=== PATIENT | male | born 1970 | race Two or more races ===

== ENCOUNTER 2019-07-20 16:25 | Emergency (ER) | payer SELFPAY ==
[~2019-07-20] VITALS: Ht 170.2 cm; Wt 81.6 kg
[2019-07-20 16:40] VITALS: BP 117/77
[2019-07-20] MEDS ORDERED: cefTRIAXone SOD 1,000 MG VL IM ONE (18:00)
== END 2019-07-20 18:17 | disposition home or self-care (01) ==
LOC: ER 16:25
DX: J20.9 Acute bronchitis, unspecified (principal); J03.90 Acute tonsillitis, unspecified; J45.909 Unspecified asthma, uncomplicated; F15.10 Other stimulant abuse, uncomplicated; F17.210 Nicotine dependence, cigarettes, uncomplicated
CPT/HCPCS: 71046; 96372; 99283; J0696

== ENCOUNTER 2020-05-08 22:26 | Inpatient (IN) | payer MEDICAID, OTHER ==
[~2020-05-08] VITALS: Ht 170.2 cm; Wt 78.8 kg
[2020-05-08] MEDS ORDERED: SODIUM CHLORIDE 0.9% 1,000 ML IVB ONE (23:30)
[2020-05-08] MEDS ORDERED: ATROPINE SULF 1 MG/10ml SYR IV ONE (23:45)
[2020-05-08 23:57] LABS: Basophils # (auto) 0 10 ^3/uL (0-0.2); Basophils % (auto) 0.1 % (0.0-2.0); Eosinophils # (auto) 0 10 ^3/uL (0-0.8); Eosinophils % (auto) 0.1 % (0.0-7.0); Hematocrit 39.3 % (41.0-53.0); Hemoglobin 13.4 g/dL (13.5-17.5); Lymphocytes # (auto) 2.3 10 ^3/uL (0.4-5.4); Lymphocytes % (auto) 27.7 % (10.0-50.0); Mean Corpuscular Hemoglobin 30.8 pg (28.0-32.0); Mean Corpuscular Hgb Conc. 34.2 g/dL (32.0-36.0); Monocytes # (auto) 0.6 10 ^3/uL (0-1.3); Monocytes % (auto) 7.4 % (0.0-12.0); Neutrophils # (auto) 5.4 10 ^3/uL (1.6-8.6); Neutrophils % (auto) 64.7 % (37.0-80.0); Platelet Count (auto) 190 10^3/uL (140-450); Red Blood Cells 4.37 10^6/uL (4.5-5.90); Red Cell Distribution Width 12.4 % (11.8-14.3); White Blood Cell 8.3 10^3/uL (4.4-10.8)
[2020-05-09 00:13] LABS: Alanine Aminotransferase 23 U/L (16-61); Anion Gap 9 (5-15); Aspartate Aminotransferase 18 U/L (15-37); BUN/Creatinine Ratio 16.3; Blood Urea Nitrogen 16 mg/dL (7-18); Calcium 7.7 mg/dL (8.5-10.1); Carbon Dioxide 26 mmol/L (21-32); Chloride 100 mmol/L (98-107); GFR African American 104 mL/min; GFR Non-African American 86 mL/min; Glucose 118 mg/dL (74-106); Magnesium 1.9 mg/dL (1.6-2.6); Potassium 3.2 mmol/L (3.5-5.1); Sodium 135 mmol/L (136-145)
[2020-05-09 00:18] LABS: Alkaline Phosphatase 104 U/L (45-117); Bilirubin, Total 0.5 mg/dL (0.2-1.0); Total Protein 6.5 g/dL (6.4-8.2)
[2020-05-09 00:31] LABS: Urine Bacteria FEW /hpf (None Seen); Urine Blood Negative /uL (Negative); Urine Specific Gravity 1.002 (1.001-1.035); Urine WBC 1 /hpf (0 - 3)
[2020-05-09 00:43] LABS: Amphetamine Screen, Urine POSITIVE (NEGATIVE); Barbiturate Scree,Urine NEGATIVE (NEGATIVE); Benzodiazephine Screen, Urine NEGATIVE (NEGATIVE); Cannabinoid Screen, Urine NEGATIVE (NEGATIVE); Cocaine Screen, Urine NEGATIVE (NEGATIVE); Phencyclidine Screen, Urine NEGATIVE (NEGATIVE)
[2020-05-09] MEDS ORDERED: MORPHINE SULF INJ 2 MG/ML SYRINGE 1ML IV PRN (00:45)
[2020-05-09] MEDS ORDERED: ONDANSETRON HCL 4 MG/2 ML VIAL IV PRN (00:45)
[2020-05-09] MEDS ORDERED: TEMAZEPAM 15 MG CAP PO PRN (00:45)
[2020-05-09] MEDS ORDERED: ACETAMINOPHEN 325 MG TAB PO PRN (00:45)
[2020-05-09] MEDS ORDERED: NITROGLYCERIN 0.4 MG SL TAB SL PRN (00:45)
[2020-05-09 00:50] LABS: Opiate Scree,Urine NEGATIVE (NEGATIVE)
[2020-05-09 01:49] LABS: CRP High Sensitivity 6.29 mg/dL (< 0.3)
[2020-05-09] MEDS: BUDESONIDE (INHALATION) 180 MCG IH IN SCH ×2 (07:34→20:12)
[2020-05-09] MEDS: ALBUTEROL SULF HFA 90MCG INH 200DOSE IN PRN ×2 (07:34→20:12)
[2020-05-09] MEDS: DexAMETHasone SOD PHOS 10MG/1ML VIAL INJ IV SCH (08:52)
[2020-05-09] MEDS: ASCORBIC ACID 1,000 MG TAB PO SCH (08:53)
[2020-05-09] MEDS: ZINC SULFATE 220mg CAP or TAB PO SCH (08:53)
[2020-05-09] MEDS: CHOLECALCIFEROL (VITD3) 2,000 UNIT CAP PO SCH (08:53)
[2020-05-09] MEDS: FAMOTIDINE 20 MG TAB PO SCH ×2 (08:53→21:45)
[2020-05-09] MEDS: ENOXAPARIN SOD 40 MG/0.4 ML SYRINGE SC SCH ×2 (08:53→21:46)
[2020-05-09] MEDS: DOXYCYCLINE 100MG/250ML 250 ML IV SCH ×2 (08:53→22:41)
--- NOTE | 2020-05-09 09:00 | NUR ---
Telemetry admit from ER MICKEY YUAN admitted to Telemetry unit after SBAR received. Patient oriented to Frannie Ortiz, primary RN, unit, room, bed, and unit policies regarding patient care and visiting hours. Patient now on continuous telemetry monitoring, tele box #[id number] and telemetry reading on arrival to unit is SR @ 66 BPM. Patient placed 5 L/NC on bedside oxygen. Bed set to lowest position/locked, bedside rails up x2, call light within reach. Instructed patient to call for assistance. Patient verbalized understanding. Will continue to monitor q1hr and prn.
[2020-05-09] MEDS ORDERED: REMDESIVIR PER PHARMACY 0 ML IV SCH (18:45)
[2020-05-09] MEDS ORDERED: cefTRIAXone 1GM/50ML D5W 50 ML IV ONE (18:45)
[2020-05-09] MEDS ORDERED: FUROSEMIDE 20 MG/2 ML VIAL IV ONE (18:45)
[2020-05-09] MEDS ORDERED: POTASSIUM CHL 20 Meq TABLET PO ONE (18:45)
--- NOTE | 2020-05-09 19:50 | NUR ---
RECEIVED PATIENT FROM DAY SHIFT RN. PATIENT RESTING IN BED WITH EYES CLOSED. NO S/S OF DISTRESS NOTED. DENIED PAIN AT THIS TIME. PUT PATIENT BACK TO 5L/NC AND INSTRUCTED PATIENT ON THE IMPORTANCE OF THE OXYGEN INTAKE. PATIENT VERBALIZED UNDERSTANDING. POC INSTRUCTED AND ENCOURAGED PATIENT TO CALL FOR CUPOLA TAPPER HELPER IF NEEDED. BED IN LOWEST LOCKED POSITION WITH SIDE RAILS UP X 2. CALL MARTIN WITHIN REACH. CONTINUE TO MONITOR FOR CHANGES Q1H AND PRN.
[2020-05-09 20:23] LABS: Albumin 2.9 g/dL (3.4-5.0); Calcium 8.7 mg/dL (8.5-10.1); Potassium 4.3 mmol/L (3.5-5.1)
[2020-05-09 20:27] LABS: BUN/Creatinine Ratio 22.8; Bilirubin, Total 0.4 mg/dL (0.2-1.0); Total Protein 6.8 g/dL (6.4-8.2)
--- NOTE | 2020-05-09 20:47 | NUR ---
PATIENT'S DAUGHTER CALLED, PASSWORD CONFIRMED. UPDATED ON CURRENT SITUATION. DAUGHTER VERBALIZED UNDERSTANDING. CONTINUE TO MONITOR
[2020-05-09] MEDS ORDERED: REMDESIVIR 200 MG in NS 210ml LOADING DOSE ADULT IV ONE (22:00)
[2020-05-09 23:18] VITALS: BP 125/72
--- NOTE | 2020-05-10 00:46 | NUR ---
PATIENT'S REMDESIVIR STATED AT THIS TIME ORDERED. PATIENT'S BP 130/77. CONTINUE TO MONITOR.
--- NOTE | 2020-05-10 01:00 | NUR ---
REASSESSED BP 114/65, HR 66. SLOW DOWN THE RATE OF REMDESIVIR. WILL CONTINUE TO MONITOR.
--- NOTE | 2020-05-10 01:15 | NUR ---
REASSESSED BP 118/72, HR 63. INCREASED RATE TO 160ML/HR AT THIS TIME. CONTINUE TO MONITOR.
--- NOTE | 2020-05-10 02:25 | NUR ---
REMDESIVIR COMPLETED, REASSESSED BP 146/83, HR 65. CONTINUE TO MONITOR.
[2020-05-10 06:23] VITALS: BP 116/79
[2020-05-10] MEDS: BUDESONIDE (INHALATION) 180 MCG IH IN SCH ×2 (07:31→20:45)
--- NOTE | 2020-05-10 07:53 | NUR ---
OPENING NOTE ASSUMED CARE OF PT. ALERT AND ORIENTED. NO S/S OF SOB/DISTRESS NOTED. BED SET TO LOWEST POSITION/LOCKED. BEDSIDE RAILS UP X2. CALL LIGHT WITHIN REACH. INSTRUCTED PT TO CALL FOR ASSISTANCE. UPDATED ON POC. WILL CONTINUE TO MONITOR Q1HR AND PRN.
[2020-05-10 08:20] LABS: Basophils # (auto) 0 10 ^3/uL (0-0.2); Basophils % (auto) 0.1 % (0.0-2.0); Eosinophils # (auto) 0 10 ^3/uL (0-0.8); Eosinophils % (auto) 0.1 % (0.0-7.0); Hematocrit 43.7 % (41.0-53.0); Hemoglobin 14.7 g/dL (13.5-17.5); Lymphocytes # (auto) 1.2 10 ^3/uL (0.4-5.4); Lymphocytes % (auto) 14.3 % (10.0-50.0); Mean Corpuscular Hemoglobin 30.4 pg (28.0-32.0); Mean Corpuscular Hgb Conc. 33.6 g/dL (32.0-36.0); Mean Corpuscular Volume 90.5 fL (80.0-100.0); Monocytes # (auto) 0.6 10 ^3/uL (0-1.3); Monocytes % (auto) 7.6 % (0.0-12.0); Neutrophils # (auto) 6.5 10 ^3/uL (1.6-8.6); Neutrophils % (auto) 77.9 % (37.0-80.0); Platelet Count (auto) 197 10^3/uL (140-450); Red Blood Cells 4.83 10^6/uL (4.5-5.90); Red Cell Distribution Width 12.4 % (11.8-14.3); White Blood Cell 8.3 10^3/uL (4.4-10.8)
[2020-05-10 08:33] LABS: Potassium 4.3 mmol/L (3.5-5.1)
[2020-05-10 08:39] LABS: Albumin 2.8 g/dL (3.4-5.0); Bilirubin, Total 0.3 mg/dL (0.2-1.0); Calcium 8.5 mg/dL (8.5-10.1); Total Protein 6.9 g/dL (6.4-8.2)
[2020-05-10 09:00] VITALS: BP 118/79
[2020-05-10] MEDS: ALBUTEROL SULF HFA 90MCG INH 200DOSE IN PRN ×2 (09:26→20:46)
[2020-05-10] MEDS: cefTRIAXone 1GM/50ML D5W 50 ML IV SCH (10:02)
[2020-05-10] MEDS: DexAMETHasone SOD PHOS 10MG/1ML VIAL INJ IV SCH (10:02)
[2020-05-10] MEDS: DOXYCYCLINE 100MG/250ML 250 ML IV SCH (10:03)
[2020-05-10] MEDS: ZINC SULFATE 220mg CAP or TAB PO SCH (10:03)
[2020-05-10] MEDS: FUROSEMIDE 20 MG/2 ML VIAL IV SCH (10:03)
[2020-05-10] MEDS: ASCORBIC ACID 1,000 MG TAB PO SCH (10:04)
[2020-05-10] MEDS: CHOLECALCIFEROL (VITD3) 2,000 UNIT CAP PO SCH (10:04)
[2020-05-10] MEDS: FAMOTIDINE 20 MG TAB PO SCH ×2 (10:04→21:56)
[2020-05-10] MEDS: POTASSIUM CHL 20 Meq TABLET PO SCH (10:04)
[2020-05-10] MEDS: ENOXAPARIN SOD 40 MG/0.4 ML SYRINGE SC SCH ×2 (10:05→21:57)
[2020-05-10] MEDS ORDERED: LORATADINE 10 MG TAB PO ONE (12:00)
[2020-05-10 13:00] VITALS: BP 111/76
[2020-05-10] MEDS: REMDESIVIR 100 MG in SODIUM CHL 0.9% 250 ML IV SCH (16:00)
--- NOTE | 2020-05-10 16:01 | NUR ---
REMDESIVIR PRE-INFUSION VS 114/69 MMHG 85 BPM 95% SPO2 WILL CONTINUE TO MONITOR.
--- NOTE | 2020-05-10 16:16 | NUR ---
REMDESIVIR 15-MIN INFUSION VS 131/85 MMHG 82 BPM 93% SPO2 NO S/S OF SOB/DISTRESS NOTED. WILL CONTINUE TO MONITOR.
[2020-05-10 16:38] VITALS: BP 120/71
--- NOTE | 2020-05-10 17:09 | NUR ---
REMDESIVIR POST-INFUSION VS 115/82 MMHG 79 BPM 92% SPO2 NO S/S OF SOB/DISTRESS NOTED. WILL CONTINUE TO MONITOR.
--- NOTE | 2020-05-10 19:35 | NUR ---
RECEIVED PATIENT FROM DAY SHIFT RN. PATIENT RESTING IN BED. NO S/S OF DISTRESS AND SOB NOTED. DENIED PAIN AT THIS TIME. PATIENT IS ON RA WITH O2 SAT 95%. POC INSTRUCTED AND ENCOURAGED PATIENT TO CALL FOR FORM PRESS OPERATOR IF NEEDED. BED IN LOWEST LOCKED POSITION WITH SIDE RAILS UP X 2. CALL MARTIN WITHIN REACH. CONTINUE TO MONITOR FOR CHANGES Q1H AND PRN.
[2020-05-10] MEDS: DOXYCYCLINE 100 MG TAB/CAP PO SCH (21:56)
--- NOTE | 2020-05-10 22:00 | NUR ---
EDUCATED PATIENT ON SIDE EFFECTS OF MEDICATIONS AND THE IMPORTANCE TO COMPLETE THE WHOLE COURSE OF MEDICATIONS. PATIENT VERBALIZED UNDERSTANDING. CONTINUE TO MONITOR.
[2020-05-11 05:41] VITALS: BP 117/66
--- NOTE | 2020-05-11 07:30 | NUR ---
Opening Shift Note RECEIVED REPORT FROM NOC RN. Assumed care of patient, awake and alert. No S/S of distress/SOB or pain. BED IN LOWEST, LOCKED POSIITON WITH SIDERAILS UP x2 AND CALL LIGHT WITHIN REACH. Instructed on POC and to call for assist PRN, will continue to monitor for changes Q1hr and PRN.
[2020-05-11 08:12] LABS: Potassium 4.2 mmol/L (3.5-5.1)
[2020-05-11 08:13] LABS: Albumin 2.9 g/dL (3.4-5.0); BUN/Creatinine Ratio 31.4; Calcium 8.5 mg/dL (8.5-10.1)
[2020-05-11 08:16] LABS: Bilirubin, Total 0.2 mg/dL (0.2-1.0); Total Protein 6.8 g/dL (6.4-8.2)
[2020-05-11] MEDS: cefTRIAXone 1GM/50ML D5W 50 ML IV SCH (09:24)
[2020-05-11] MEDS: BUDESONIDE (INHALATION) 180 MCG IH IN SCH ×2 (10:30→18:07)
[2020-05-11] MEDS: FUROSEMIDE 20 MG/2 ML VIAL IV SCH (11:47)
[2020-05-11] MEDS: CHOLECALCIFEROL (VITD3) 2,000 UNIT CAP PO SCH (11:48)
[2020-05-11] MEDS: DexAMETHasone SOD PHOS 10MG/1ML VIAL INJ IV SCH (11:48)
[2020-05-11] MEDS: ZINC SULFATE 220mg CAP or TAB PO SCH (11:48)
[2020-05-11] MEDS: DOXYCYCLINE 100 MG TAB/CAP PO SCH (11:48)
[2020-05-11] MEDS: FAMOTIDINE 20 MG TAB PO SCH (11:48)
[2020-05-11] MEDS: POTASSIUM CHL 20 Meq TABLET PO SCH (11:48)
[2020-05-11] MEDS: ASCORBIC ACID 1,000 MG TAB PO SCH (11:48)
[2020-05-11] MEDS: ENOXAPARIN SOD 40 MG/0.4 ML SYRINGE SC SCH (11:49)
[2020-05-11] MEDS ORDERED: METH4PAK PO (11:54)
[2020-05-11] MEDS ORDERED: DOX100T PO (11:55)
[2020-05-11] MEDS ORDERED: CHOL20007 PO (11:55)
[2020-05-11] MEDS ORDERED: MULT-1018 PO (11:55)
[2020-05-11] MEDS ORDERED: AMOX500T86 PO (11:56)
[2020-05-11] MEDS ORDERED: PANT40TA2 PO (11:57)
[2020-05-11] MEDS ORDERED: ASPI-231 PO (11:58)
[2020-05-11] MEDS: ALBUTEROL SULF HFA 90MCG INH 200DOSE IN PRN ×2 (12:11→19:26)
[2020-05-11] MEDS: REMDESIVIR 100 MG in SODIUM CHL 0.9% 250 ML IV SCH (15:26)
--- NOTE | 2020-05-11 18:46 | NUR ---
TELE BOX 13 SENT BACK TO MONITOR TECHS AT THIS TIME.
--- NOTE | 2020-05-11 19:33 | NUR ---
Patient Discharged Patient walked to car to drive self home by aid. Patient had all patient teaching and belongings. No S/S of distress on discharge.
== END 2020-05-11 19:46 | disposition home or self-care (01) | DRG 720 ==
LOC: ER 22:26 → OVERFLOW 22:27 → TELE-E-ADS 05-09 09:31
PROVIDERS: ADMIT Nurse Practitioner; ATTEND Internal Medicine Nephrology
PROC: XW033E5 Introduction of Remdesivir Anti-infective into Peripheral Vein, Percutaneous Approach, New Technology Group 5 (ICD-10-PCS; principal; 2020-05-09)
DX: A41.89 Other specified sepsis (principal); U07.1 COVID-19; J96.01 Acute respiratory failure with hypoxia; J12.89 Other viral pneumonia; E86.0 Dehydration; N39.0 Urinary tract infection, site not specified; J45.909 Unspecified asthma, uncomplicated; E87.6 Hypokalemia; F17.210 Nicotine dependence, cigarettes, uncomplicated; J32.4 Chronic pansinusitis; R65.20 Severe sepsis without septic shock; J98.11 Atelectasis; F15.90 Other stimulant use, unspecified, uncomplicated
CPT/HCPCS: 36415; 70450; 71045; 80053; 80307; 81001; 82728; 83036; 83605; 83615; 83735; 84443; 84484; 85025; 85379; 86141; 87426; 93005; 94640; G0378; J0696; J1100; J3490

== ENCOUNTER 2021-09-14 10:57 | Inpatient (IN) | payer MEDICAID ==
[~2021-09-14] VITALS: Ht 170.2 cm; Wt 80.9 kg
[~2021-09-14 10:57] MED LIST: AMOX500T86 PO; ASPI1TAB20 PO; CHOL20007 PO; DOX100T PO; METH4PAK PO; MULT-1018 PO; PANT40TA2 PO
[2021-09-14] MEDS ORDERED: methylPREDNISolone SOD SUCC 125 MG/2 ML VL IV ONE (12:00)
[2021-09-14] MEDS ORDERED: cefTRIAXone 1GM/50ML D5W 50 ML IV ONE (12:00)
[2021-09-14] MEDS ORDERED: ALBUTEROL SULF 2.5 MG/0.5ML(0.5%) NEB SOLN NEB ONE (12:00)
[2021-09-14] MEDS ORDERED: IPRATROPIUM BROM 0.5 MG/2.5ML INH SOL NEB ONE (12:00)
[2021-09-14 12:07] LABS: Basophils # (auto) 0 10 ^3/uL (0-0.2); Basophils % (auto) 0.2 % (0.0-2.0); Eosinophils # (auto) 0.1 10 ^3/uL (0-0.8); Eosinophils % (auto) 1.8 % (0.0-7.0); Hematocrit 41.1 % (41.0-53.0); Hemoglobin 13.9 g/dL (13.5-17.5); Lymphocytes # (auto) 0.9 10 ^3/uL (0.4-5.4); Lymphocytes % (auto) 11.3 % (10.0-50.0); Mean Corpuscular Hemoglobin 30.6 pg (28.0-32.0); Mean Corpuscular Hgb Conc. 33.8 g/dL (32.0-36.0); Mean Corpuscular Volume 90.4 fL (80.0-100.0); Monocytes # (auto) 0.3 10 ^3/uL (0-1.3); Monocytes % (auto) 4.1 % (0.0-12.0); Neutrophils # (auto) 6.5 10 ^3/uL (1.6-8.6); Neutrophils % (auto) 82.6 % (37.0-80.0); Red Blood Cells 4.55 10^6/uL (4.5-5.90); Red Cell Distribution Width 13.2 % (11.8-14.3); White Blood Cell 7.9 10^3/uL (4.4-10.8)
[2021-09-14 12:09] LABS: Albumin 3.5 g/dL (3.4-5.0); Calcium 8.4 mg/dL (8.5-10.1); Potassium 3.5 mmol/L (3.5-5.1)
[2021-09-14 12:11] LABS: Bilirubin, Total 0.3 mg/dL (0.2-1.0); Total Protein 6.5 g/dL (6.4-8.2)
[2021-09-14 12:16] LABS: INR 0.98 (0.9-1.15); Partial Thromboplastin Time 29.5 sec (23.6-33.0)
[2021-09-14] MEDS ORDERED: MAGNESIUM SULFATE 1GM/100ML 100 ML IV ONE (13:15)
[2021-09-14] MEDS ORDERED: SODIUM CHLORIDE 0.9% 1,000 ML IV ONE (13:15)
[2021-09-14] MEDS ORDERED: ONDANSETRON HCL 4 MG/2 ML VIAL IV PRN (13:15)
[2021-09-14] MEDS ORDERED: MORPHINE SULFATE INJECTION 2 MG/ML SYRG IV PRN (13:15)
[2021-09-14] MEDS ORDERED: hydrALAZINE HCL 20 MG/ML VL IV PRN (13:15)
[2021-09-14] MEDS ORDERED: ALBUTEROL SULF 2.5 MG/0.5ML(0.5%) NEB SOLN NEB PRN (13:15)
[2021-09-14] MEDS ORDERED: NICOTINE 7MG/24HR TOPICAL PATCH TD ONE (13:30)
[2021-09-14] MEDS ORDERED: PANTOPRAZOLE 40 MG/10 ML VIAL INJ IV ONE (13:45)
[2021-09-14] MEDS: SOD CHL 0.45% 1,000 ML IV SCH (14:43)
[2021-09-14] MEDS ORDERED: ALBU0.084 NEB (15:25)
[2021-09-14 16:59] VITALS: BP 157/96
[2021-09-14] MEDS: IPRATROPIUM BROM 0.5 MG/2.5ML INH SOL NEB SCH ×2 (18:24→22:00)
[2021-09-14] MEDS: ALBUTEROL SULF 2.5 MG/0.5ML(0.5%) NEB SOLN NEB SCH (18:25)
[2021-09-14] MEDS: methylPREDNISolone SOD SUCC 125 MG/2 ML VL IV SCH (21:39)
[2021-09-14 22:00] VITALS: BP 130/69
[2021-09-15 01:42] LABS: Urine Bacteria NONE SEEN /hpf (None Seen); Urine Blood Negative /uL (Negative); Urine Specific Gravity 1.035 (1.001-1.035); Urine WBC 1 /hpf (0 - 3)
[2021-09-15 01:51] LABS: Alcohol, Urine < 3.0 mg/dL (0-10); Amphetamine Screen, Urine POSITIVE (NEGATIVE); Barbiturate Scree,Urine NEGATIVE (NEGATIVE); Benzodiazephine Screen, Urine NEGATIVE (NEGATIVE); Cannabinoid Screen, Urine NEGATIVE (NEGATIVE); Cocaine Screen, Urine NEGATIVE (NEGATIVE); Phencyclidine Screen, Urine NEGATIVE (NEGATIVE)
[2021-09-15 01:59] LABS: Opiate Scree,Urine NEGATIVE (NEGATIVE)
[2021-09-15] MEDS: IPRATROPIUM BROM 0.5 MG/2.5ML INH SOL NEB SCH ×6 (02:00→18:00)
[2021-09-15] MEDS: SOD CHL 0.45% 1,000 ML IV SCH ×2 (02:35→04:54)
[2021-09-15 05:00] VITALS: BP 125/72
[2021-09-15] MEDS ORDERED: IPRATROPIUM BROM 0.5 MG/2.5ML INH SOL NEB PRN (06:00)
[2021-09-15] MEDS: ALBUTEROL SULF 2.5 MG/0.5ML(0.5%) NEB SOLN NEB SCH ×4 (06:44→18:00)
[2021-09-15 07:04] LABS: Albumin 3.1 g/dL (3.4-5.0); Calcium 8.3 mg/dL (8.5-10.1); Potassium 4.2 mmol/L (3.5-5.1)
[2021-09-15 07:06] LABS: BUN/Creatinine Ratio 27.2; Basophils # (auto) 0 10 ^3/uL (0-0.2); Basophils % (auto) 0.1 % (0.0-2.0); Eosinophils # (auto) 0 10 ^3/uL (0-0.8); Hematocrit 37.7 % (41.0-53.0); Hemoglobin 13.2 g/dL (13.5-17.5); Lymphocytes # (auto) 0.5 10 ^3/uL (0.4-5.4); Mean Corpuscular Hemoglobin 31.3 pg (28.0-32.0); Mean Corpuscular Hgb Conc. 35.1 g/dL (32.0-36.0); Mean Corpuscular Volume 89.2 fL (80.0-100.0); Monocytes # (auto) 0.2 10 ^3/uL (0-1.3); Neutrophils # (auto) 10.1 10 ^3/uL (1.6-8.6); Neutrophils % (auto) 92.9 % (37.0-80.0); Red Blood Cells 4.22 10^6/uL (4.5-5.90); Red Cell Distribution Width 13.1 % (11.8-14.3); White Blood Cell 10.8 10^3/uL (4.4-10.8)
[2021-09-15 07:09] LABS: Bilirubin, Total 0.4 mg/dL (0.2-1.0); Total Protein 6.1 g/dL (6.4-8.2)
[2021-09-15] MEDS: methylPREDNISolone SOD SUCC 125 MG/2 ML VL IV SCH ×2 (08:31→21:59)
[2021-09-15] MEDS: PANTOPRAZOLE 40 MG/10 ML VIAL INJ IV SCH (08:31)
[2021-09-15] MEDS: NICOTINE 7MG/24HR TOPICAL PATCH TD SCH (08:32)
[2021-09-15] MEDS: ENOXAPARIN SOD 40 MG/0.4 ML SYRINGE SC SCH (08:32)
[2021-09-15] MEDS: cefTRIAXone 1GM/50ML D5W 50 ML IV SCH (08:32)
[2021-09-15 08:36] VITALS: BP 117/59
[2021-09-15] MEDS: AZITHROMYCIN 500MG/ 250ML 250 ML IV SCH (10:30)
[2021-09-15 12:59] VITALS: BP 117/84
[2021-09-15 16:34] VITALS: BP 109/52
[2021-09-15 20:00] VITALS: BP 118/63
[2021-09-15 22:00] VITALS: BP 118/63
[2021-09-16 05:00] VITALS: BP 137/89
[2021-09-16] MEDS: SOD CHL 0.45% 1,000 ML IV SCH (05:15)
[2021-09-16] MEDS: ALBUTEROL SULF 2.5 MG/0.5ML(0.5%) NEB SOLN NEB SCH (06:11)
[2021-09-16] MEDS: IPRATROPIUM BROM 0.5 MG/2.5ML INH SOL NEB SCH (06:11)
[2021-09-16 08:00] VITALS: BP 127/79
[2021-09-16] MEDS: PANTOPRAZOLE 40 MG/10 ML VIAL INJ IV SCH (08:09)
[2021-09-16] MEDS: AZITHROMYCIN 500MG/ 250ML 250 ML IV SCH (08:14)
[2021-09-16] MEDS: NICOTINE 7MG/24HR TOPICAL PATCH TD SCH (08:20)
[2021-09-16] MEDS: ENOXAPARIN SOD 40 MG/0.4 ML SYRINGE SC SCH (08:20)
[2021-09-16] MEDS: methylPREDNISolone SOD SUCC 125 MG/2 ML VL IV SCH (08:20)
[2021-09-16 09:00] VITALS: BP 127/79
[2021-09-16] MEDS: cefTRIAXone 1GM/50ML D5W 50 ML IV SCH (10:00)
[2021-09-16] MEDS ORDERED: LORATADINE 10 MG TAB PO SCH (10:00)
[2021-09-16] MEDS ORDERED: AZIT500T66 PO (10:49)
[2021-09-16] MEDS ORDERED: ALBUAER3 IN (10:49)
[2021-09-16] MEDS ORDERED: PRED20TA2 PO (10:49)
[2021-09-16] MEDS ORDERED: NICO14DI29 TD (10:49)
[2021-09-16] MEDS ORDERED: PANT40TA2 PO (10:49)
== END 2021-09-16 12:23 | disposition home or self-care (01) | DRG 140 ==
LOC: ER 10:57 → OVERFLOW 13:02 → CENTRAL 14:46
PROVIDERS: ADMIT Registered Nurse; ATTEND Internal Medicine
DX: J44.1 Chronic obstructive pulmonary disease with (acute) exacerbation (principal); J96.00 Acute respiratory failure, unspecified whether with hypoxia or hypercapnia; N17.9 Acute kidney failure, unspecified; J45.901 Unspecified asthma with (acute) exacerbation; E78.5 Hyperlipidemia, unspecified; F17.210 Nicotine dependence, cigarettes, uncomplicated; Z20.822 Contact with and (suspected) exposure to COVID-19; Z90.49 Acquired absence of other specified parts of digestive tract; Z86.16 Personal history of COVID-19; Z71.6 Tobacco abuse counseling
CPT/HCPCS: 36415; 71045; 80053; 80061; 80307; 81001; 83036; 83735; 84443; 85025; 85379; 85610; 85730; 87040; 87086; 93005; 94640; 96365; 96367; 96375; 99291; C9113; G0378; J0696

== ENCOUNTER 2021-10-25 12:37 | Emergency (ER) | payer MEDICAID ==
[~2021-10-25] VITALS: Ht 170.2 cm; Wt 77.1 kg
[~2021-10-25 12:37] MED LIST changes: +ALBU0.084 NEB; +ALBUAER3 IN; -AMOX500T86 PO; -ASPI1TAB20 PO; +AZIT500T66 PO; -CHOL20007 PO; -DOX100T PO; -METH4PAK PO; -MULT-1018 PO; +NICO14DI29 TD; +PRED20TA2 PO
[2021-10-25 13:32] LABS: Basophils # (auto) 0 10 ^3/uL (0-0.2); Basophils % (auto) 0.6 % (0.0-2.0); Eosinophils # (auto) 0.5 10 ^3/uL (0-0.8); Eosinophils % (auto) 7.9 % (0.0-7.0); Hematocrit 41.3 % (41.0-53.0); Hemoglobin 14.2 g/dL (13.5-17.5); Lymphocytes # (auto) 1.8 10 ^3/uL (0.4-5.4); Lymphocytes % (auto) 29.7 % (10.0-50.0); Mean Corpuscular Hemoglobin 30.8 pg (28.0-32.0); Mean Corpuscular Hgb Conc. 34.5 g/dL (32.0-36.0); Mean Corpuscular Volume 89.3 fL (80.0-100.0); Monocytes # (auto) 0.4 10 ^3/uL (0-1.3); Monocytes % (auto) 5.9 % (0.0-12.0); Neutrophils # (auto) 3.4 10 ^3/uL (1.6-8.6); Neutrophils % (auto) 55.9 % (37.0-80.0); Nucleated Red Blood Cells % 0.1 %; Red Blood Cells 4.63 10^6/uL (4.5-5.90); Red Cell Distribution Width 13.2 % (11.8-14.3); White Blood Cell 6.1 10^3/uL (4.4-10.8)
[2021-10-25 13:45] LABS: Albumin 3.6 g/dL (3.4-5.0); Calcium 8.4 mg/dL (8.5-10.1); Magnesium 2.4 mg/dL (1.6-2.6); Potassium 3.9 mmol/L (3.5-5.1)
[2021-10-25 13:48] LABS: Bilirubin, Total 0.2 mg/dL (0.2-1.0); Total Protein 6.9 g/dL (6.4-8.2)
[2021-10-25 22:30] VITALS: BP 155/95
== END 2021-10-25 23:06 | disposition home or self-care (01) ==
LOC: ER 12:42
DX: R07.89 Other chest pain (principal); J45.909 Unspecified asthma, uncomplicated; I25.2 Old myocardial infarction; F17.210 Nicotine dependence, cigarettes, uncomplicated; Z90.49 Acquired absence of other specified parts of digestive tract; Z79.2 Long term (current) use of antibiotics; Z79.899 Other long term (current) drug therapy
CPT/HCPCS: 36415; 71045; 80053; 83735; 84443; 84484; 85025; 93005

== ENCOUNTER 2022-06-13 01:14 | Emergency (ER) | payer MEDICAID, OTHER ==
[~2022-06-13] VITALS: Ht 170.2 cm; Wt 82.5 kg
[2022-06-13] MEDS ORDERED: IPRATROPIUM BROM 0.5 MG/2.5ML INH SOL NEB ONE (01:30)
[2022-06-13] MEDS ORDERED: methylPREDNISolone SOD SUCC 125 MG/2 ML VL IV ONE (01:30)
[2022-06-13] MEDS ORDERED: ALBUTEROL SULF 2.5 MG/0.5ML(0.5%) NEB SOLN NEB ONE (01:30)
[2022-06-13 01:49] LABS: Basophils # (auto) 0 10 ^3/uL (0-0.2); Basophils % (auto) 0.2 % (0.0-2.0); Eosinophils # (auto) 0.1 10 ^3/uL (0-0.8); Eosinophils % (auto) 0.8 % (0.0-7.0); Hematocrit 36.8 % (41.0-53.0); Hemoglobin 12.7 g/dL (13.5-17.5); Lymphocytes # (auto) 1.9 10 ^3/uL (0.4-5.4); Lymphocytes % (auto) 17.1 % (10.0-50.0); Mean Corpuscular Hemoglobin 30.6 pg (28.0-32.0); Mean Corpuscular Hgb Conc. 34.6 g/dL (32.0-36.0); Mean Corpuscular Volume 88.4 fL (80.0-100.0); Monocytes % (auto) 8.7 % (0.0-12.0); Neutrophils # (auto) 8.1 10 ^3/uL (1.6-8.6); Neutrophils % (auto) 73.2 % (37.0-80.0); Red Blood Cells 4.16 10^6/uL (4.5-5.90); Red Cell Distribution Width 12.5 % (11.8-14.3); White Blood Cell 11.1 10^3/uL (4.4-10.8)
[2022-06-13] MEDS ORDERED: ALBUTEROL MEDNEB 2.5 mg/3ml NEB ONE (01:49)
[2022-06-13 02:07] LABS: Albumin 3.5 g/dL (3.4-5.0); BUN/Creatinine Ratio 19.6; Calcium 8.5 mg/dL (8.5-10.1); Potassium 3.6 mmol/L (3.5-5.1)
[2022-06-13 02:10] LABS: Bilirubin, Total 0.6 mg/dL (0.2-1.0); Total Protein 7.3 g/dL (6.4-8.2)
[2022-06-13] MEDS ORDERED: IOHEXOL 300 MG/ML 100ML BOTTLE IJ ONE (03:37)
[2022-06-13 08:07] VITALS: BP 107/56
== END 2022-06-13 08:08 | disposition home or self-care (01) ==
LOC: ER 01:14
DX: R06.00 Dyspnea, unspecified (principal); N43.3 Hydrocele, unspecified; N50.89 Other specified disorders of the male genital organs; Z20.822 Contact with and (suspected) exposure to COVID-19
CPT/HCPCS: 36415; 71045; 74177; 76870; 80053; 83605; 83880; 84484; 85025; 87426; 87804; 93005; 94640; 96374; 99285; J2930; J7644; Q9967

== ENCOUNTER 2022-06-18 13:04 | Emergency (ER) | payer OTHER ==
[~2022-06-18] VITALS: Ht 170.2 cm; Wt 82.0 kg
[2022-06-18 14:06] VITALS: BP 120/70
[2022-06-18] MEDS ORDERED: LIDOCAINE 1% HCL (LOCAL ANESTH.) INJ 20ML MDV IJ ONE (14:30)
[2022-06-18] MEDS ORDERED: cefTRIAXone SOD 1,000 MG VL IM ONE (14:30)
[2022-06-18] MEDS ORDERED: BACDST PO (15:03)
[2022-06-18] MEDS ORDERED: IBUP800T27 PO (15:03)
== END 2022-06-18 15:08 | disposition home or self-care (01) ==
LOC: ER 13:04
DX: N49.2 Inflammatory disorders of scrotum (principal); J45.909 Unspecified asthma, uncomplicated; F15.10 Other stimulant abuse, uncomplicated; F17.200 Nicotine dependence, unspecified, uncomplicated
CPT/HCPCS: 55100; 87077; 87186; 87205; 96372; 99283; J0696; J2001; 10060

== ENCOUNTER → 2022-06-23 | Emergency (ER) | payer OTHER ==
[~2022-06-23] VITALS: Ht 170.2 cm; Wt 81.8 kg
[~2022-06-23] MED LIST changes: +ALBUTEROL MEDNEB 2.5 mg/3ml NEB ONE; +ALBUTEROL SULF 2.5 MG/0.5ML(0.5%) NEB SOLN NEB ONE; +BACDST PO; +IBUP800T27 PO; +IPRATROPIUM BROM 0.5 MG/2.5ML INH SOL NEB ONE; +IPRATROPIUM BROM 0.5 MG/2.5ML INH SOL ONE; +cefTRIAXone 1GM/50ML D5W 50 ML IV ONE; +methylPREDNISolone SOD SUCC 125 MG/2 ML VL IV ONE
[2022-06-23 13:09] LABS: Hematocrit 41.9 % (41.0-53.0); Hemoglobin 13.8 g/dL (13.5-17.5); Mean Corpuscular Hemoglobin 29.5 pg (28.0-32.0); Mean Corpuscular Hgb Conc. 32.9 g/dL (32.0-36.0); Mean Corpuscular Volume 89.7 fL (80.0-100.0); Red Blood Cells 4.66 10^6/uL (4.5-5.90); Red Cell Distribution Width 12.8 % (11.8-14.3); White Blood Cell 13.4 10^3/uL (4.4-10.8)
[2022-06-23 13:18] LABS: Albumin 3.2 g/dL (3.4-5.0); BUN/Creatinine Ratio 30.3; Calcium 8.5 mg/dL (8.5-10.1)
[2022-06-23 13:20] LABS: Bilirubin, Total 0.2 mg/dL (0.2-1.0); Total Protein 6.7 g/dL (6.4-8.2)
[2022-06-23 13:32] LABS: Basophils % (manual) 0 (0.0-2.0); Blast Cells 0; Eosinophils % (manual) 0 (0-7); Metamyelocytes % 0; Promyelocytes % 0; Reactive Lymphocytes 0
[2022-06-23 14:16] LABS: Band Neutrophils % (manual) 5; Lymphocytes % (manual) 19 (10.0-50.0); Monocytes % (manual) 4 (0-12); Myelocytes % 1
[2022-06-23 17:56] VITALS: BP 134/61
== END | disposition home or self-care (01) ==
LOC: ER 12:29
DX: J45.901 Unspecified asthma with (acute) exacerbation (principal); F15.10 Other stimulant abuse, uncomplicated; F17.200 Nicotine dependence, unspecified, uncomplicated; Z20.822 Contact with and (suspected) exposure to COVID-19
CPT/HCPCS: 36415; 36600; 71045; 80053; 82805; 84484; 85007; 85027; 87426; 93005; 94640; 96365; 96375; 99285; J0696; J2930; J7644

== ENCOUNTER 2022-08-11 10:59 | Inpatient (IN) | payer OTHER ==
[~2022-08-11] VITALS: Ht 167.6 cm; Wt 86.3 kg
[~2022-08-11 10:59] MED LIST changes: -ALBUTEROL MEDNEB 2.5 mg/3ml NEB ONE; -ALBUTEROL SULF 2.5 MG/0.5ML(0.5%) NEB SOLN NEB ONE; -IPRATROPIUM BROM 0.5 MG/2.5ML INH SOL NEB ONE; -IPRATROPIUM BROM 0.5 MG/2.5ML INH SOL ONE; -cefTRIAXone 1GM/50ML D5W 50 ML IV ONE; -methylPREDNISolone SOD SUCC 125 MG/2 ML VL IV ONE
[2022-08-11] MEDS ORDERED: methylPREDNISolone SOD SUCC 125 MG/2 ML VL IV ONE (11:15)
[2022-08-11] MEDS ORDERED: IPRATROPIUM BROM 0.5 MG/2.5ML INH SOL HHN ONE (11:15)
[2022-08-11] MEDS ORDERED: ONDANSETRON HCL 4 MG/2 ML VIAL IV ONE (11:15)
[2022-08-11] MEDS ORDERED: ALBUTEROL SULF 2.5 MG/0.5ML(0.5%) NEB SOLN HHN ONE (11:15)
[2022-08-11 12:02] LABS: Basophils # (auto) 0.1 10 ^3/uL (0-0.2); Basophils % (auto) 1.4 % (0.0-2.0); Eosinophils # (auto) 0.1 10 ^3/uL (0-0.8); Eosinophils % (auto) 1.8 % (0.0-7.0); Hematocrit 44.7 % (41.0-53.0); Hemoglobin 15.4 g/dL (13.5-17.5); Lymphocytes # (auto) 1.1 10 ^3/uL (0.4-5.4); Mean Corpuscular Hemoglobin 30.1 pg (28.0-32.0); Mean Corpuscular Hgb Conc. 34.4 g/dL (32.0-36.0); Mean Corpuscular Volume 87.3 fL (80.0-100.0); Monocytes # (auto) 0.3 10 ^3/uL (0-1.3); Monocytes % (auto) 4.2 % (0.0-12.0); Neutrophils # (auto) 4.4 10 ^3/uL (1.6-8.6); Neutrophils % (auto) 74.6 % (37.0-80.0); Nucleated Red Blood Cells % 0.5 %; Red Blood Cells 5.12 10^6/uL (4.5-5.90); Red Cell Distribution Width 13.9 % (11.8-14.3); White Blood Cell 5.9 10^3/uL (4.4-10.8)
[2022-08-11 12:17] LABS: INR 0.94 (0.9-1.15); Partial Thromboplastin Time 25.5 sec (24.6-33.4)
[2022-08-11 12:23] LABS: Albumin 3.8 g/dL (3.4-5.0); BUN/Creatinine Ratio 25.2; Bilirubin, Total 0.7 mg/dL (0.2-1.0); Calcium 8.8 mg/dL (8.5-10.1); Magnesium 2.4 mg/dL (1.6-2.6); Potassium 3.7 mmol/L (3.5-5.1)
[2022-08-11] MEDS ORDERED: FAMOTIDINE (10MG/ML) 2ML VL IV ONE (13:00)
[2022-08-11] MEDS ORDERED: diphenhdrAMINE HCL 50 MG/1 ML VL IV ONE (13:00)
[2022-08-11] MEDS ORDERED: LORazepam 2MG/ML-1ML VIAL IV ONE (18:45)
[2022-08-11] MEDS ORDERED: FOLIC ACID 1 MG TAB PO ONE (20:30)
[2022-08-11] MEDS ORDERED: THIAMINE 100mg/ml INJ (200mg/2ml VIAL) IV ONE (20:30)
[2022-08-11] MEDS ORDERED: MULTIPLE VITAMIN TAB PO ONE (20:30)
[2022-08-11] MEDS ORDERED: SODIUM CHLORIDE 0.9% 1,000 ML IV ONE (20:30)
[2022-08-11] MEDS ORDERED: LORazepam 2MG/ML-1ML VIAL IV PRN (20:30)
[2022-08-11] MEDS ORDERED: PANTOPRAZOLE 40 MG/10 ML VIAL INJ IV ONE (20:30)
[2022-08-11] MEDS ORDERED: chlordiazePOXIDE HCL 25 MG CAP PO PRN (20:30)
[2022-08-11 21:40] LABS: Blood Alcohol < 3.0 mg/dL (0-5); Cholesterol 198 mg/dL (< 200); Triglycerides 66 mg/dL (< 150)
[2022-08-11 21:44] LABS: HDL Cholesterol 56 mg/dL (40-59); LDL Cholesterol 134 mg/dL (< 100)
[2022-08-12] MEDS ORDERED: MORPHINE SULFATE INJ 2 MG/ml SYRG IV PRN (00:15)
[2022-08-12] MEDS ORDERED: NITROGLYCERIN 0.4 MG SL TAB SL PRN (00:15)
[2022-08-12 05:05] LABS: Urine Bacteria NONE SEEN /hpf (None Seen); Urine Blood Negative /uL (Negative); Urine Budding Yeast MODERATE /hpf (None Seen); Urine Hyaline Cast FEW /lpf (0 - 2); Urine Mucus FEW (None Seen); Urine Specific Gravity 1.032 (1.001-1.035); Urine WBC 3 /hpf (0 - 3)
[2022-08-12 05:25] LABS: Alcohol, Urine < 3.0 mg/dL (0-10); Amphetamine Screen, Urine POSITIVE (NEGATIVE); Barbiturate Scree,Urine NEGATIVE (NEGATIVE); Benzodiazephine Screen, Urine NEGATIVE (NEGATIVE); Cannabinoid Screen, Urine NEGATIVE (NEGATIVE); Cocaine Screen, Urine NEGATIVE (NEGATIVE); Opiate Scree,Urine NEGATIVE (NEGATIVE); Phencyclidine Screen, Urine NEGATIVE (NEGATIVE)
[2022-08-12 08:00] VITALS: BP 160/64
[2022-08-12] MEDS ORDERED: FOLIC ACID 1 MG TAB PO SCH (10:00)
[2022-08-12] MEDS ORDERED: THIAMINE 100mg/ml INJ (200mg/2ml VIAL) IV SCH (10:00)
[2022-08-12] MEDS ORDERED: MULTIPLE VITAMIN TAB PO SCH (10:00)
[2022-08-12] MEDS ORDERED: PANTOPRAZOLE 40 MG/10 ML VIAL INJ IV SCH (10:00)
== END 2022-08-12 07:58 | disposition left against medical advice (07) | DRG 422 ==
LOC: ER 10:59 → TELE 08-12 00:12
PROVIDERS: ADMIT Nurse Practitioner Family; ATTEND Nurse Practitioner Family
DX: E86.0 Dehydration (principal); J45.901 Unspecified asthma with (acute) exacerbation; Z53.29 Procedure and treatment not carried out because of patient's decision for other reasons; F17.210 Nicotine dependence, cigarettes, uncomplicated; R06.03 Acute respiratory distress; F10.239 Alcohol dependence with withdrawal, unspecified; Z20.822 Contact with and (suspected) exposure to COVID-19; Z88.7 Allergy status to serum and vaccine; Z90.49 Acquired absence of other specified parts of digestive tract; I25.2 Old myocardial infarction
CPT/HCPCS: 36415; 71045; 74176; 80053; 80061; 80307; 80320; 81001; 83036; 83735; 84443; 85025; 85610; 85730; 87426; 94644; C9113; G0378; J2405; J3490

== ENCOUNTER 2022-09-01 10:38 | Inpatient (IN) | payer OTHER ==
[~2022-09-01] VITALS: Ht 170.2 cm; Wt 77.2 kg
[2022-09-01] MEDS ORDERED: LORazepam 2MG/ML-1ML VIAL IV ONE (11:00)
[2022-09-01 11:08] LABS: Basophils # (auto) 0 10 ^3/uL (0-0.2); Basophils % (auto) 0.4 % (0.0-2.0); Eosinophils # (auto) 0.1 10 ^3/uL (0-0.8); Eosinophils % (auto) 1.9 % (0.0-7.0); Hematocrit 47.7 % (41.0-53.0); Hemoglobin 15.9 g/dL (13.5-17.5); Lymphocytes # (auto) 2.8 10 ^3/uL (0.4-5.4); Lymphocytes % (auto) 35.4 % (10.0-50.0); Mean Corpuscular Hemoglobin 29.9 pg (28.0-32.0); Mean Corpuscular Hgb Conc. 33.4 g/dL (32.0-36.0); Mean Corpuscular Volume 89.6 fL (80.0-100.0); Monocytes # (auto) 0.3 10 ^3/uL (0-1.3); Neutrophils # (auto) 4.6 10 ^3/uL (1.6-8.6); Neutrophils % (auto) 58.3 % (37.0-80.0); Nucleated Red Blood Cells % 0.2 %; Red Blood Cells 5.32 10^6/uL (4.5-5.90); Red Cell Distribution Width 13.6 % (11.8-14.3); White Blood Cell 7.8 10^3/uL (4.4-10.8)
[2022-09-01 11:23] LABS: Albumin 3.9 g/dL (3.4-5.0); Calcium 9.1 mg/dL (8.5-10.1); Potassium 3.6 mmol/L (3.5-5.1)
[2022-09-01 11:29] LABS: BUN/Creatinine Ratio 18.6 (10.0-20.0); Bilirubin, Total 0.6 mg/dL (0.2-1.0)
[2022-09-01] MEDS ORDERED: NITROGLYCERIN 0.4 MG SL TAB SL PRN (17:45)
[2022-09-01] MEDS ORDERED: ACETAMINOPHEN 325 MG TAB PO PRN (17:45)
[2022-09-01] MEDS ORDERED: MORPHINE SULFATE INJ 2 MG/ml SYRG IV PRN (17:45)
[2022-09-01] MEDS ORDERED: ALBUTEROL SULF 2.5 MG/0.5ML(0.5%) NEB SOLN NEB PRN (18:00)
[2022-09-01] MEDS ORDERED: methylPREDNISolone SOD SUCC 125 MG/2 ML VL IV ONE (18:00)
[2022-09-01] MEDS ORDERED: LORazepam 2MG/ML-1ML VIAL IV PRN (18:00)
[2022-09-01] MEDS ORDERED: PANTOPRAZOLE 40 MG/10 ML VIAL INJ IV ONE (18:00)
[2022-09-01] MEDS: SODIUM CHLORIDE 0.9% 1,000 ML IV SCH (18:30)
[2022-09-01] MEDS: IPRATROPIUM BROM 0.5 MG/2.5ML INH SOL NEB SCH ×2 (18:33→21:57)
[2022-09-01] MEDS: ALBUTEROL SULF 2.5 MG/0.5ML(0.5%) NEB SOLN NEB SCH ×2 (18:33→21:56)
[2022-09-01 20:14] VITALS: BP 121/74
[2022-09-01] MEDS ORDERED: IOHEXOL 350 MG/ML 100ML IJ ONE (20:53)
[2022-09-01] MEDS: methylPREDNISolone SOD SUCC 125 MG/2 ML VL IV SCH (22:46)
[2022-09-01 23:15] LABS: Urine Bacteria NONE SEEN /hpf (None Seen); Urine Blood Negative /uL (Negative); Urine Hyaline Cast FEW /lpf (0 - 2); Urine Mucus FEW (None Seen); Urine Sperm PRESENT /hpf (None Seen); Urine WBC <1 /hpf (0 - 3)
[2022-09-01 23:21] LABS: Urine Specific Gravity > 1.050 (1.001-1.035)
[2022-09-01 23:26] LABS: Alcohol, Urine < 3.0 mg/dL (0-10); Amphetamine Screen, Urine POSITIVE (NEGATIVE); Barbiturate Scree,Urine NEGATIVE (NEGATIVE); Benzodiazephine Screen, Urine NEGATIVE (NEGATIVE); Cannabinoid Screen, Urine NEGATIVE (NEGATIVE); Cocaine Screen, Urine NEGATIVE (NEGATIVE); Phencyclidine Screen, Urine NEGATIVE (NEGATIVE)
[2022-09-01 23:34] LABS: Opiate Scree,Urine NEGATIVE (NEGATIVE)
[2022-09-02] MEDS: IPRATROPIUM BROM 0.5 MG/2.5ML INH SOL NEB SCH ×3 (02:08→10:15)
[2022-09-02] MEDS: ALBUTEROL SULF 2.5 MG/0.5ML(0.5%) NEB SOLN NEB SCH ×3 (02:08→10:15)
[2022-09-02 05:52] LABS: Basophils # (auto) 0 10 ^3/uL (0-0.2); Eosinophils # (auto) 0 10 ^3/uL (0-0.8); Eosinophils % (auto) 0.1 % (0.0-7.0); Hematocrit 44.4 % (41.0-53.0); Hemoglobin 15.3 g/dL (13.5-17.5); Lymphocytes # (auto) 0.5 10 ^3/uL (0.4-5.4); Lymphocytes % (auto) 10.8 % (10.0-50.0); Mean Corpuscular Hemoglobin 30.5 pg (28.0-32.0); Mean Corpuscular Hgb Conc. 34.5 g/dL (32.0-36.0); Mean Corpuscular Volume 88.5 fL (80.0-100.0); Monocytes # (auto) 0 10 ^3/uL (0-1.3); Monocytes % (auto) 0.5 % (0.0-12.0); Neutrophils # (auto) 3.9 10 ^3/uL (1.6-8.6); Neutrophils % (auto) 88.6 % (37.0-80.0); Nucleated Red Blood Cells % 0.1 %; Red Blood Cells 5.02 10^6/uL (4.5-5.90); Red Cell Distribution Width 13.6 % (11.8-14.3); White Blood Cell 4.4 10^3/uL (4.4-10.8)
[2022-09-02 06:07] LABS: Potassium 4.1 mmol/L (3.5-5.1)
[2022-09-02 06:16] LABS: Albumin 3.2 g/dL (3.4-5.0); BUN/Creatinine Ratio 20.6 (10.0-20.0); Bilirubin, Total 0.5 mg/dL (0.2-1.0); Calcium 8.5 mg/dL (8.5-10.1); Total Protein 6.4 g/dL (6.4-8.2)
[2022-09-02] MEDS: methylPREDNISolone SOD SUCC 125 MG/2 ML VL IV SCH (09:42)
[2022-09-02] MEDS ORDERED: NICOTINE 14 MG/24HR TOPICAL PATCH TD SCH (10:00)
[2022-09-02] MEDS ORDERED: ENOXAPARIN SOD 40 MG/0.4 ML SYRINGE SC SCH (10:00)
[2022-09-02] MEDS ORDERED: PANTOPRAZOLE 40 MG/10 ML VIAL INJ IV SCH (10:00)
[2022-09-02] MEDS: SODIUM CHLORIDE 0.9% 1,000 ML IV SCH (10:23)
[2022-09-02 12:00] VITALS: BP 113/63
== END 2022-09-02 12:28 | disposition left against medical advice (07) | DRG 133 ==
LOC: EDBD 10:38 → ER 10:38 → TELE 17:46
PROVIDERS: ADMIT Nurse Practitioner Family; ATTEND Nurse Practitioner Acute Care
DX: J96.01 Acute respiratory failure with hypoxia (principal); F15.10 Other stimulant abuse, uncomplicated; R10.9 Unspecified abdominal pain; R73.9 Hyperglycemia, unspecified; F17.210 Nicotine dependence, cigarettes, uncomplicated; Z20.822 Contact with and (suspected) exposure to COVID-19; Z53.29 Procedure and treatment not carried out because of patient's decision for other reasons; F41.9 Anxiety disorder, unspecified; J45.909 Unspecified asthma, uncomplicated; Z88.7 Allergy status to serum and vaccine; I25.2 Old myocardial infarction
CPT/HCPCS: 36415; 71045; 71275; 74176; 80053; 80307; 81001; 83690; 84484; 85025; 85379; 87426; 87804; 93005; 94640; 96374; C9113; G0378

== ENCOUNTER 2023-01-27 05:29 | Emergency (ER) | payer OTHER ==
[~2023-01-27] VITALS: Ht 167.6 cm; Wt 77.2 kg
[~2023-01-27 05:29] MED LIST changes: +ALB5IS NEB; +IBUP-1456 PO; -IBUP800T27 PO
[2023-01-27 05:55] VITALS: PULSE 93; RESP 14; O2SAT 92
[2023-01-27 06:00] VITALS: BP 135/54
[2023-01-27 06:02] VITALS: RESP 16; O2SAT 95
[2023-01-27] MEDS ORDERED: ALBUTEROL SULF 2.5 MG/0.5ML(0.5%) NEB SOLN NEB ONE (06:15)
[2023-01-27] MEDS ORDERED: SODIUM CHLORIDE 0.9% 1,000 ML IV ONE ×2 (06:30)
[2023-01-27] MEDS ORDERED: DexAMETHasone SOD PHOS 10MG/1ML VIAL INJ IV ONE (06:30)
[2023-01-27 07:04] LABS: Basophils # (auto) 0 10 ^3/uL (0-0.2); Basophils % (auto) 0.2 % (0.0-2.0); Eosinophils # (auto) 0.1 10 ^3/uL (0-0.8); Eosinophils % (auto) 2.7 % (0.0-7.0); Hematocrit 40.1 % (41.0-53.0); Hemoglobin 13.8 g/dL (13.5-17.5); Lymphocytes # (auto) 1.8 10 ^3/uL (0.4-5.4); Lymphocytes % (auto) 36.5 % (10.0-50.0); Mean Corpuscular Hemoglobin 30.8 pg (28.0-32.0); Mean Corpuscular Hgb Conc. 34.3 g/dL (32.0-36.0); Mean Corpuscular Volume 89.7 fL (80.0-100.0); Monocytes # (auto) 0.1 10 ^3/uL (0-1.3); Monocytes % (auto) 2.7 % (0.0-12.0); Neutrophils # (auto) 2.9 10 ^3/uL (1.6-8.6); Neutrophils % (auto) 57.9 % (37.0-80.0); Nucleated Red Blood Cells % 0.1 %; Red Blood Cells 4.47 10^6/uL (4.5-5.90); Red Cell Distribution Width 13.1 % (11.8-14.3); White Blood Cell 5.1 10^3/uL (4.4-10.8)
[2023-01-27 07:21] LABS: Alanine Aminotransferase 16 U/L (7-40); Albumin 3.9 g/dL (3.2-4.8); Alkaline Phosphatase 83 U/L (46-116); Anion Gap 6.2 (5-15); Aspartate Aminotransferase < 8 U/L (13-40); BUN/Creatinine Ratio 18.2 (10.0-20.0); Blood Alcohol 9.6 mg/dL (<10); Blood Urea Nitrogen 16 mg/dL (9-23); Carbon Dioxide 26.8 mmol/L (20-30); Chloride 108 mmol/L (98-107); Glucose 142 mg/dL (74-106); Potassium 3.4 mmol/L (3.5-5.1); Sodium 141 mmol/L (136-145)
[2023-01-27 07:22] LABS: Bilirubin, Total 0.4 mg/dL (0.2-1.0)
[2023-01-27 08:05] VITALS: PULSE 95
[2023-01-27] MEDS ORDERED: cefTRIAXone 1GM/50ML D5W 50 ML IV ONE (08:45)
[2023-01-27 09:31] LABS: Lactic Acid w/Reflex 2.5 mmol/L (0.4-2.0)
[2023-01-27] MEDS ORDERED: POTASSIUM EFFERVESENT TAB 25 MEQ PO ONE (10:30)
== END 2023-01-27 10:20 | disposition home or self-care (01) ==
LOC: ER 05:29
DX: F15.90 Other stimulant use, unspecified, uncomplicated (principal); R06.02 Shortness of breath; R07.89 Other chest pain; R21 Rash and other nonspecific skin eruption; J45.909 Unspecified asthma, uncomplicated; I25.2 Old myocardial infarction; F17.210 Nicotine dependence, cigarettes, uncomplicated; Z90.49 Acquired absence of other specified parts of digestive tract
CPT/HCPCS: 36415; 71045; 80053; 80320; 83605; 83880; 84484; 85025; 87040; 93005; 94640; 96361; 96365; 96375; 99285; J0696; J1100; J7030

== ENCOUNTER 2025-01-18 01:55 | Inpatient (IN) | payer MEDICAID, OTHER ==
[~2025-01-18] VITALS: Ht 167.6 cm; Wt 89.4 kg
[2025-01-18] VITALS (11 sets, daily range): BP systolic 115–124; BP diastolic 71–84; PULSE 79–112; RESP 16–22; TEMP 97.1–98.4; O2SAT 95–100
[2025-01-18] MEDS: ACETAMINOPHEN 500 MG TAB or CAP PO ONE (02:13)
--- NOTE | 2025-01-18 02:22 | ED.PDOC ---
SOB-HPI HPI Comments 54 year old male presents to the ED with a chief complaint of shortness of breath onset 2 days. He has been experiencing flu like symptoms including productive cough, congestion, fever as well shortness of breath for the past 2 days. Upon ED arrival, patient was tachycardiac with 122 bpm, temperature was 103.3 F, O2 sat was 92% on RA, placed on O2. PMHx asthma, [place]. Denies chest pain, dizziness, abdominal pain,nausea, vomiting, diarrhea, headache. No other symptoms or modifying factors present at this time. Chief Complaint: Shortness of Breath Time Seen by MD: 02:15 Primary Care Provider: UNKNOWN Reviewed notes: Medications, Allergies Information Source: Patient, Significant Other Mode of Arrival: Wheelchair Severity: Moderate Timing: Days Duration: Since onset Context: At Rest PE Risk Factors: None History of: Asthma Prehospital treatment: None Modifying Factors: Nothing Associated Signs and Symptoms: Fever, Cough, Nasal Congestion If cough with SOB: Productive Past Medical History PAST MEDICAL HISTORY: Asthma, [place] Surgical History: Appendectomy Family History Family History: Reviewed,noncontributory to illness Social History Smoker: Less Than 1 Pack/Day Alcohol: Occasionally Drugs: Methamphetamine Lives In: Home Constitutional: reports: fever; denies: chills, diaphoresis, fatigue, malaise, sweats, weakness, others EENTM: reports: nose congestion; denies: blurred vision, double vision, ear bleeding, ear discharge, ear drainage, ear pain, ear ringing, eye pain, eye redness, hearing loss, mouth pain, mouth swelling, nasal discharge, nose bleeding, nose pain, photophobia, tearing, throat pain, throat swelling, voice changes, others Respiratory: reports: cough, shortness of breath; denies: hemoptysis, orthopnea, SOB at rest, SOB with excertion, stridor, wheezing, others Cardiovascular: denies: chest pain, dizzy spells, diaphoresis, Dyspnea on exertion, edema, irregular heart beat, left arm pain, lightheadedness, palpitations, PND, syncope, others Gastrointestinal: denies: abdomen distended, abdominal pain, blood streaked bowels, constipated, diarrhea, dysphagia, difficulty swallowing, hematemesis, melena, nausea, poor appetite, poor fluid intake, rectal bleeding, rectal pain, vomiting, others Genitourinary: denies: burning, dysuria, flank pain, frequency, hematuria, incontinence, penile discharge, penile sore, pain, testicle pain, testicle swelling, urgency, others Neurological: denies: dizziness, fainting, headache, left sided numbness, left sided weakness, numbness, paresthesia, pre-existing deficit, right sided numbness, right sided weakness, seizure, speech problems, tingling, tremors, weakness, others Musculoskeletal: denies: back pain, gout, joint pain, joint swelling, muscle pain, muscle stiffness, neck pain, others Integumetry: denies: bruises, change in color, change in hair/nails, dryness, laceration, lesions, lumps, rash, wounds, others Allergic/Immunocompromised: denies: Difficulty Healing, Frequent Infections, Hives, Itching, others Hematologic/Lymphatic: denies: anemia, blood clots, easy bleeding, easy bruising, swollen glands, others Endocrine: denies: excessive hunger, excessive sweating, excessive thirst, excessive urination, flushing, intolerance to cold, intolerance to heat, unexplained weight gain, unexplained weight loss, others Psychiatric: denies: anxiety, bipolar disorder, depression, hopeless, panic disorder, schizophrenia, sleepless, suicidal, others All Other Systems: Reviewed and Negative Physical Exam General Appearance: Normal HEENT: Normal ENT Inspection, Pharynx Normal, TMs Normal Neck: Full Range of Motion, Non-Tender, Normal, Normal Inspection Respiratory: Chest Non-Tender Cardiovascular: No Edema, No JVD, No Murmur, No Gallop, Normal Peripheral Pulses, Regular Rate/Rhythm Breast Exam: Deferred Gastrointestinal: No Organomegaly, Non Tender, No Pulsatile Mass, Normal Bowel Sounds, Soft Genitalia: Deferred Pelvic: Deferred Rectal: Deferred Extremities: No calf tenderness, Normal capillary refill, Normal inspection, Normal range of motion, Non-tender, No pedal edema Musculoskeletal : Apperance: Normal Neurologic: rn home health II-XII nml as Tested, No Motor Deficits, Normal Affect, No Sensory Deficits Cerebellar Function: Normal Reflexes: Normal Skin: Dry, Normal Color, Warm Lymphatic: No Adenopathy Was a procedure done? Was a procedure done?: No Differential Dx Differential Diagnosis: Asthma, Bronchitis, CHF, COPD, Dysrhythmia, Hypertension, Pneumonia, Pulmonary Embolism, Respiratory Distress, URI, Other X-Ray, Labs, Meds, VS Vital Signs Date Time Temp Pulse Resp B/P (MAP) Pulse Ox O2 Delivery O2 Flow Rate FiO2 01/18/25 04:45 104 20 95 Nasal Cannula* 2 01/18/25 04:45 99.0 106 20 127/74 (91) 94 99.0 01/18/25 04:41 119 20 99 Room Air 01/18/25 04:02 103.3 01/18/25 03:15 103.0 119 20 129/81 (97) 99 103.0 01/18/25 02:47 20 95 Nasal Cannula* 2 01/18/25 02:13 103.3 01/18/25 02:07 103.3 122 22 137/83 92 103.3 Lab Test 01/18/25 03:19 01/18/25 02:35 01/18/25 02:30 Range/Units Troponin I High Sensitivity 115 *H 110 *H </=54 ng/L White Blood Count 5.9 4.4-10.8 10^3/uL Red Blood Count 4.48 L 4.5-5.90 10^6/uL Hemoglobin 13.8 13.5-17.5 g/dL Hematocrit 39.7 L 41.0-53.0 % Mean Corpuscular Volume 88.6 80.0-100.0 fL Mean Corpuscular Hemoglobin 30.8 28.0-32.0 pg Mean Corpuscular Hemoglobin Concent 34.7 32.0-36.0 g/dL Red Cell Distribution Width 13.8 11.8-14.3 % Platelet Count 159 140-450 10^3/uL Mean Platelet Volume 9.0 6.9-10.8 fL Neutrophils (%) (Auto) 87.8 H 37.0-80.0 % Lymphocytes (%) (Auto) 7.8 L 10.0-50.0 % Monocytes (%) (Auto) 4.2 0.0-12.0 % Eosinophils (%) (Auto) 0.1 0.0-7.0 % Basophils (%) (Auto) 0.1 0.0-2.0 % Neutrophils # (Auto) 5.2 1.6-8.6 10 ^3/uL Lymphocytes # (Auto) 0.5 0.4-5.4 10 ^3/uL Monocytes # (Auto) 0.2 0-1.3 10 ^3/uL Eosinophils # (Auto) 0 0-0.8 10 ^3/uL Basophils # (Auto) 0 0-0.2 10 ^3/uL Nucleated Red Blood Cells 0.1 % Sodium Level 136 136-145 mmol/L Potassium Level 2.8 L 3.5-5.1 mmol/L Chloride Level 102 98-107 mmol/L Carbon Dioxide Level 24 20-31 mmol/L Anion Gap 10 5-15 Blood Urea Nitrogen 15 9-23 mg/dL Creatinine 0.98 0.700-1.30 mg/dL Glomerular Filtration Rate Calc 91 >90 mL/min BUN/Creatinine Ratio 15.3 10.0-20.0 Serum Glucose 152 H 74-106 mg/dL Lactic Acid Level 1.6 0.4-2.0 mmol/L Calcium Level 8.2 L 8.7-10.4 mg/dL Magnesium Level 1.8 1.6-2.6 mg/dL Total Bilirubin 0.5 0.2-1.0 mg/dL Aspartate Amino Transferase (AST) 40 13-40 U/L Alanine Aminotransferase (ALT) 36 7-40 U/L Alkaline Phosphatase 100 46-116 U/L B-Type Natriuretic Peptide 1194.70 0-100 pg/mL Total Protein 5.8 5.7-8.2 g/dL Albumin 3.8 3.2-4.8 g/dL Blood Gas Specimen Type Venous Blood Gas Sample Site Vbg - n/a Blood Gas Patient Temperature 37.0 Arterial Blood Date Drawn [id number] Jl Test N/a Venous Blood pH 7.518 H 7.320-7.430 Venous Blood pCO2 at Patient Temp 28.5 L 38.0-54.0 mmHg Venous Blood pO2 at Patient Temp 39.5 23.0-48.0 mmHg Venous Blood HCO3 22.6 22.0-29.0 mmol/L Venous Blood Base Excess 1.0 -2.0-3.0 mmol/L Blood Gas Liter Flow 2.00 Blood Gas Modality Nasal cannula FiO2 % 28.0 Current Medications Medications (Trade) Dose Ordered Sig/Monalisa Route Start Time Stop Time Status Last Admin Acetaminophen (Tylenol Tablet Or Capsule) 1,000 mg ONCE ONCE PO 01/18/25 02:15 01/18/25 02:16 DC 01/18/25 02:13 Sodium Chloride 1,000 ml @ 1,000 mls/hr Q1H ONCE IV 01/18/25 02:30 01/18/25 03:29 DC 01/18/25 02:30 Acetaminophen (Tylenol Tablet) 1,000 mg ONCE ONCE PO 01/18/25 02:30 01/18/25 02:31 DC 01/18/25 04:02 Sodium Chloride 1,000 ml @ 1,000 mls/hr Q1H ONCE IV 01/18/25 02:30 01/18/25 03:29 DC 01/18/25 02:30 Ceftriaxone Sodium 50 ml @ 100 mls/hr ONCE ONCE IV 01/18/25 02:30 01/18/25 02:59 DC 01/18/25 02:30 Azithromycin (Zithromax Tablet) 500 mg ONCE ONCE PO 01/18/25 02:30 01/18/25 02:31 DC 01/18/25 03:59 Prednisone 40 mg ONCE ONCE PO 01/18/25 02:30 01/18/25 02:31 DC 01/18/25 04:00 Albuterol (Ventolin Medneb) 5 mg ONCE ONCE NEB 01/18/25 02:30 01/18/25 02:31 DC 01/18/25 02:42 Potassium Chloride (Klor-Con Tablet) 40 meq ONCE ONCE PO 01/18/25 04:00 01/18/25 04:01 DC 01/18/25 04:00 Time of 1ST Reevaluation: 02:45 Reevaluation 1ST: Unchanged Patient Education/Counseling: Diagnosis, Treatment, Prognosis Family Education/Counseling: Diagnosis, Treatment, Prognosis SEPSIS Sepsis Screen Date sepsis recognized/suspect: Jan 18, 2025 Time Sepsis recognized/suspect: 208 Recent Procedure: No On Antibiotic Therapy: No Respiratory Rate >20: Yes Heart Rate >90: Yes Temp<36 C (96.8 F) or >38.3 C: Yes SBP <90 or MAP <65 mmHG: No New Acute Mental Status Change: No Is the patient on CPAP, BIPAP,: No Physician Orders Oxygen (01/18/25 02:20) Leather Leveler (01/18/25 02:20) Troponin-I Hs (01/18/25 05:20) Electrocardigram (01/18/25 02:20) Blood Culture (01/18/25 02:20) Rapid Influenza A&B (01/18/25 02:20) Covid19 Antigen Graciela (01/18/25 ) Venous Blood Gas (01/18/25 02:20) Chest Portable (01/18/25 03:46) Urinalysis (01/18/25 04:02) Chest Xray 1 View (01/18/25 04:59) Vital Signs Date Time Temp Pulse Resp B/P (MAP) Pulse Ox O2 Delivery O2 Flow Rate FiO2 01/18/25 04:45 104 20 95 Nasal Cannula* 2 28 01/18/25 04:45 99.0 106 20 127/74 (91) 94 99.0 01/18/25 04:41 119 20 99 Room Air 01/18/25 04:02 103.3 01/18/25 03:15 103.0 119 20 129/81 (97) 99 103.0 01/18/25 02:47 20 95 Nasal Cannula* 2 28 01/18/25 02:13 103.3 01/18/25 02:07 103.3 122 22 137/83 92 103.3 Laboratory Tests Test 01/18/25 02:35 Lactic Acid Level 1.6 mmol/L (0.4-2.0) White Blood Count 5.9 10^3/uL (4.4-10.8) Medications Medications Dose Ordered Sig/Monalisa Route Start Time Stop Time Status Last Admin Dose Admin Acetaminophen 1,000 mg ONCE ONCE PO 01/18/25 02:15 01/18/25 02:16 DC 01/18/25 02:13 Acetaminophen 1,000 mg ONCE ONCE PO 01/18/25 02:30 01/18/25 02:31 DC 01/18/25 04:02 Albuterol 5 mg ONCE ONCE NEB 01/18/25 02:30 01/18/25 02:31 DC 01/18/25 02:42 Azithromycin 500 mg ONCE ONCE PO 01/18/25 02:30 01/18/25 02:31 DC 01/18/25 03:59 Ceftriaxone Sodium 50 ml @ 100 mls/hr ONCE ONCE IV 01/18/25 02:30 01/18/25 02:59 DC 01/18/25 02:30 Potassium Chloride 40 meq ONCE ONCE PO 01/18/25 04:00 01/18/25 04:01 DC 01/18/25 04:00 Prednisone 40 mg ONCE ONCE PO 01/18/25 02:30 01/18/25 02:31 DC 01/18/25 04:00 Sodium Chloride 1,000 ml @ 1,000 mls/hr Q1H ONCE IV 01/18/25 02:30 01/18/25 03:29 DC 01/18/25 02:30 Sodium Chloride 1,000 ml @ 1,000 mls/hr Q1H ONCE IV 01/18/25 02:30 01/18/25 03:29 DC 01/18/25 02:30 Departure 1 Departure Time of Disposition: 05:04 Impression: Primary Impression: Acute respiratory distress Additional Impression: Pneumonitis Disposition: 01 HOME / SELF CARE / HOMELESS Admit to: Med Surg Condition: Guarded Discharged With: Self Comments Patient with fever 103 and shortness of breath. On lab reviewed troponin is elevated 110. Patient was given IV fluids and Tylenol and aspirin and IV Rocephin and azithromycin antibiotics. I suspect acute pneumonitis. I suspect acute coronary syndrome. Patient will need to be admitted for supportive care and further workup. Critical Care Note Critical Care Time?: Yes (35 min-critical care time only) Critical care comment: Total critical care time: Approximately 36 minutes Due to a high probability of clinically significant, life threatening deterioration, the patient required my highest level of preparedness to intervene emergently and I personally spent this critical care time directly and personally managing the patient. This critical care time included obtaining a history; examining the patient; pulse oximetry; ordering and review of studies; arranging urgent treatment with development of a management plan; evaluation of patient's response to treatment; frequent reassessment; and, discussions with other providers. This critical care time was performed to assess and manage the high probability of imminent, life-threatening deterioration that could result in multi-organ failure. It was exclusive of separately billable procedures and treating other patients. Stability Stability form required: No Heart Score Heart Score: Heart Score Response (Comments) Value History Moderate Suspicious 1 EKG Repolarization Disturb 1 Age 45-64 1 Risk Factors 1 or 2 risk factors 1 Troponin >3 x's Normal limit 2 Total 6 I personally scribed for NATASHA SZYMANSKI MD ([email or web address]) on 01/18/25 at 02:22. Electronically submitted by Hannah Cha ([email or web address]). NATASHA SZYMANSKI MD Jan 18, 2025 02:22
[2025-01-18] MEDS: cefTRIAXone 1GM/50ML D5W 50 ML IV ONE (02:30)
[2025-01-18] MEDS: SODIUM CHLORIDE 0.9% 1,000 ML IV ONE ×2 (02:30)
[2025-01-18] MEDS: ALBUTEROL SULF 2.5 MG/0.5ML(0.5%) NEB SOLN NEB ONE (02:42)
[2025-01-18 03:17] LABS: Alanine Aminotransferase 36 U/L (7-40); Albumin 3.8 g/dL (3.2-4.8); Alkaline Phosphatase 100 U/L (46-116); Anion Gap 10 (5-15); BUN/Creatinine Ratio 15.3 (10.0-20.0); Bilirubin, Total 0.5 mg/dL (0.2-1.0); Blood Urea Nitrogen 15 mg/dL (9-23); Carbon Dioxide 24 mmol/L (20-31); Chloride 102 mmol/L (98-107); Magnesium 1.8 mg/dL (1.6-2.6); Sodium 136 mmol/L (136-145); Total Protein 5.8 g/dL (5.7-8.2)
[2025-01-18 03:31] LABS: Calcium 8.2 mg/dL (8.7-10.4); Glucose 152 mg/dL (74-106); Potassium 2.8 mmol/L (3.5-5.1)
[2025-01-18 03:37] LABS: Hematocrit 39.7 % (41.0-53.0); Hemoglobin 13.8 g/dL (13.5-17.5); Mean Corpuscular Hemoglobin 30.8 pg (28.0-32.0); Mean Corpuscular Volume 88.6 fL (80.0-100.0); Nucleated Red Blood Cells % 0.1 %
[2025-01-18] MEDS: AZITHROMYCIN 250 MG TAB PO ONE (03:59)
[2025-01-18] MEDS: POTASSIUM CHL 20 Meq TABLET PO ONE ×2 (04:00→13:53)
[2025-01-18] MEDS: predniSONE 20 MG TAB PO ONE (04:00)
[2025-01-18] MEDS: ACETAMINOPHEN 325 MG TAB PO ONE (04:02)
--- NOTE | 2025-01-18 06:01 | DVH ---
CHEST RADIOGRAPH Indication:SOB Technique: Single frontal view of the chest was obtained COMPARISON: 01/27/2023 FINDINGS: Lines and Tubes: None Lungs: Increased interstitial prominence Pleura: No effusion. No pneumothorax. Cardiomediastinal contours: Cardiomegaly Bones: Unremarkable IMPRESSION: Increased interstital prominence. This may represent pulmonary vascular congestion and/or viral pneum onia. Clinical correlation advised.
[2025-01-18] MEDS ORDERED: DOCUSATE SOD 100 MG CAP PO PRN (08:30)
[2025-01-18] MEDS ORDERED: HYDROcodone-ACET 5/325MG TAB PO PRN (08:30)
[2025-01-18] MEDS ORDERED: ONDANSETRON HCL 4 MG/2 ML VIAL IV PRN (08:30)
--- NOTE | 2025-01-18 09:04 | DVHHP2 ---
History of Present Illness Reason for Visit: Shortness of breath History of Present Illness Chang Lopez is a 54-year-old male with past medical history of asthma, who came to the hospital for shortness of breath and chest pain. Patient states his symptoms began about 2 days ago. When he arrived in ER he was tachypneic, tachycardic, and febrile. Labs revealed hypokalemia, Initial troponin was elevated, with subsequent troponin increasing. Patient states he does use methamphetamines, last use was 2 days ago. Influenza A&B and COVID swabs are pending. Patient will be admitted for further care. Pulmonary: Asthma Past Surgical History: Appendectomy, Other (Left knee) Smoke: <1 pack per day ALCOHOL: none Drugs: Other (Methamphetamines, last used 2 days ago) Lives: with Family Domestic Violence: Neg Review of Systems Constitutional: Yes: Fever, Chills, Sweats, Weakness, Malaise; No: Other Eyes: No: Pain, Vision change, Conjunctivae inflammation, Eyelid inflammation, Other, Redness ENT: No: Ear pain, Ear discharge, Nose pain, Nose discharge, Nose congestion, Mouth pain, Mouth swelling, Throat pain, Throat swelling, Other Respiratory: Shortness of breath, SOB with excertion; No: Cough, Dry, Wheezing, Hemoptysis, Pleuritic Pain, Sputum, Wheezing, Other Cardiovascular: Chest Pain; No: Palpitations, Orthopnea, Paroxysmal Noc. Dyspnea, Edema, Lt Headedness, Other Gastrointestinal: No: Nausea, Vomiting, Abdominal Pain, Diarrhea, Constipation, Melena, Hematochezia, Other Genitourinary: No Dysuria, No Frequency, No Incontinence, No Hematuria, No Retention, No Other Musculoskeletal: No: other, neck pain, shoulder pain, arm pain, back pain, hand pain, leg pain, foot pain Skin: No: Rash, Lesions, Jaundice, Bruising, Other Neurological: No: Weakness, Numbness, Incoordination, Change in speech, Confusion, Seizures, Other Allergies: Coded Allergies: No Known Drug Allergy (Verified Allergy, Unknown, 09/01/22) Uncoded Allergies: COVID VACCINE (Allergy, Unknown, 06/13/22) Medications Current Medications Medications Dose Ordered Sig/Monalisa Route Start Time Stop Time Status Last Admin Dose Admin Acetaminophen/ Hydrocodone Bitart 1 tab Q4HP PRN PO 01/18/25 08:30 UNV Ondansetron HCl 4 mg Q4HP PRN IV 01/18/25 08:30 UNV Docusate Sodium 100 mg BIDPRN PRN PO 01/18/25 08:30 UNV Acetaminophen 650 mg Q6HP PRN PO 01/18/25 08:30 UNV Ipratropium [place] 0.5 mg Q4HPRN PRN NEB 01/18/25 08:30 UNV Albuterol 2.5 mg Q4HPRN PRN NEB 01/18/25 08:30 UNV Azithromycin 250 ml @ 125 mls/hr DAILY IV 01/18/25 10:00 UNV Ceftriaxone Sodium 50 ml @ 100 mls/hr DAILY@09 IV 01/18/25 09:00 UNV Exam Vital Signs Vital Signs Date Time Temp Pulse Resp B/P (MAP) Pulse Ox O2 Delivery O2 Flow Rate FiO2 01/18/25 08:00 97.5 79 11 115/71 (86) 95 97.5 01/18/25 04:45 Nasal Cannula* 2 28 General Appearance: Alert, Oriented X3, Cooperative, moderate distress, Other (Diaphoretic) HEENT: Atraumatic, PERRLA Respiratory: Other (Diminished breath sounds) Cardiovascular: Regular rate, Normal S1, Normal S2 Abdominal: Normal bowel sounds, Soft, No tenderness Extremities: No clubbing, No cyanosis, No edema, Normal pulses, No tenderness/swelling Skin: No rashes, No breakdown, No significant lesion Neuro: Normal gait, Normal speech, Strength at 5/5 X4 ext, Normal tone Psych/Mental Status: Mental status NL, Mood NL Labs/Xrays Labs Test 01/18/25 05:55 01/18/25 02:35 01/18/25 02:30 Range/Units Troponin I High Sensitivity 127 *H </=54 ng/L White Blood Count 5.9 4.4-10.8 10^3/uL Red Blood Count 4.48 L 4.5-5.90 10^6/uL Hemoglobin 13.8 13.5-17.5 g/dL Hematocrit 39.7 L 41.0-53.0 % Mean Corpuscular Volume 88.6 80.0-100.0 fL Mean Corpuscular Hemoglobin 30.8 28.0-32.0 pg Mean Corpuscular Hemoglobin Concent 34.7 32.0-36.0 g/dL Red Cell Distribution Width 13.8 11.8-14.3 % Platelet Count 159 140-450 10^3/uL Mean Platelet Volume 9.0 6.9-10.8 fL Neutrophils (%) (Auto) 87.8 H 37.0-80.0 % Lymphocytes (%) (Auto) 7.8 L 10.0-50.0 % Monocytes (%) (Auto) 4.2 0.0-12.0 % Eosinophils (%) (Auto) 0.1 0.0-7.0 % Basophils (%) (Auto) 0.1 0.0-2.0 % Neutrophils # (Auto) 5.2 1.6-8.6 10 ^3/uL Lymphocytes # (Auto) 0.5 0.4-5.4 10 ^3/uL Monocytes # (Auto) 0.2 0-1.3 10 ^3/uL Eosinophils # (Auto) 0 0-0.8 10 ^3/uL Basophils # (Auto) 0 0-0.2 10 ^3/uL Nucleated Red Blood Cells 0.1 % Sodium Level 136 136-145 mmol/L Potassium Level 2.8 L 3.5-5.1 mmol/L Chloride Level 102 98-107 mmol/L Carbon Dioxide Level 24 20-31 mmol/L Anion Gap 10 5-15 Blood Urea Nitrogen 15 9-23 mg/dL Creatinine 0.98 0.700-1.30 mg/dL Glomerular Filtration Rate Calc 91 >90 mL/min BUN/Creatinine Ratio 15.3 10.0-20.0 Serum Glucose 152 H 74-106 mg/dL Lactic Acid Level 1.6 0.4-2.0 mmol/L Calcium Level 8.2 L 8.7-10.4 mg/dL Magnesium Level 1.8 1.6-2.6 mg/dL Total Bilirubin 0.5 0.2-1.0 mg/dL Aspartate Amino Transferase (AST) 40 13-40 U/L Alanine Aminotransferase (ALT) 36 7-40 U/L Alkaline Phosphatase 100 46-116 U/L B-Type Natriuretic Peptide 1194.70 0-100 pg/mL Total Protein 5.8 5.7-8.2 g/dL Albumin 3.8 3.2-4.8 g/dL Blood Gas Specimen Type Venous Blood Gas Sample Site [facility] - n/a Blood Gas Patient Temperature 37.0 Arterial Blood Date Drawn [id number] Jl Test N/a Venous Blood pH 7.518 H 7.320-7.430 Venous Blood pCO2 at Patient Temp 28.5 L 38.0-54.0 mmHg Venous Blood pO2 at Patient Temp 39.5 23.0-48.0 mmHg Venous Blood HCO3 22.6 22.0-29.0 mmol/L Venous Blood Base Excess 1.0 -2.0-3.0 mmol/L Blood Gas Liter Flow 2.00 Blood Gas Modality Nasal cannula FiO2 % 28.0 CHEST RADIOGRAPH FINDINGS: Lines and Tubes: None Lungs: Increased interstitial prominence Pleura: No effusion. No pneumothorax. Cardiomediastinal contours: Cardiomegaly Bones: Unremarkable IMPRESSION: Increased interstital prominence. This may represent pulmonary vascular congestion and/or viral pneumonia. Clinical correlation advised. SEPSIS Sepsis Screen Date sepsis recognized/suspect: Jan 18, 2025 Time Sepsis recognized/suspect: 447 Recent Procedure: No On Antibiotic Therapy: No Respiratory Rate >20: No Heart Rate >90: Yes Temp<36 C (96.8 F) or >38.3 C: No SBP <90 or MAP <65 mmHG: No New Acute Mental Status Change: No Is the patient on CPAP, BIPAP,: No Physician Orders Oxygen (01/18/25 02:20) Tube Winder Hand (01/18/25 02:20) Electrocardigram (01/18/25 02:20) Blood Culture (01/18/25 02:20) Rapid Influenza A&B (01/18/25 02:20) Covid19 Antigen Graciela (01/18/25 ) Venous Blood Gas (01/18/25 02:20) Urinalysis (01/18/25 04:02) Chest Xray 1 View (01/18/25 04:59) Admit (01/18/25 08:16) Code Status (01/18/25 08:16) Hydrocodone-Acet 5/325mg Tab ([place] 5/32 (01/18/25 08:30) Ondansetron Hcl (Zofran) (01/18/25 08:30) Docusate Sodium Capsule (Colace Capsule) (01/18/25 08:30) Complete Blood Count (01/19/25 04:00) Comprehensive Metabolic Panel (01/19/25 04:00) Condition: Serious (01/18/25 08:16) Acetaminophen Tablet (Tylenol Tablet) (01/18/25 08:30) Ipratropium Medneb (Atrovent Medneb) (01/18/25 08:30) Albuterol Medneb (Ventolin Medneb) (01/18/25 08:30) Azithromycin 500mg/ 250ml (Zithromax 50 (01/18/25 10:00) Ceftriaxone 1gm/50ml D5w (Rocephin) (01/18/25 09:00) Potassium (01/18/25 08:22) Magnesium (01/18/25 08:22) * Cardiology Consult (01/18/25 08:23) Methylprednisolone Sod Succ (Solu Medrol (01/18/25 10:00) Troponin-I Hs (01/18/25 08:23) Echo 2d Mode Cardiac Dop (01/18/25 08:23) Vital Signs Date Time Temp Pulse Resp B/P (MAP) Pulse Ox O2 Delivery O2 Flow Rate FiO2 01/18/25 08:00 97.5 79 11 115/71 (86) 95 97.5 01/18/25 08:00 87 01/18/25 06:57 98.1 93 20 154/76 (102) 98 98.1 01/18/25 04:45 104 20 95 Nasal Cannula* 2 28 01/18/25 04:45 99.0 106 20 127/74 (91) 94 99.0 01/18/25 04:41 119 20 99 Room Air 01/18/25 04:02 103.3 01/18/25 03:15 103.0 119 20 129/81 (97) 99 103.0 01/18/25 02:47 20 95 Nasal Cannula* 2 28 01/18/25 02:13 103.3 01/18/25 02:07 103.3 122 22 137/83 92 103.3 Laboratory Tests Test 01/18/25 02:35 Lactic Acid Level 1.6 mmol/L (0.4-2.0) White Blood Count 5.9 10^3/uL (4.4-10.8) Medications Medications Dose Ordered Sig/Monalisa Route Start Time Stop Time Status Last Admin Dose Admin Acetaminophen 1,000 mg ONCE ONCE PO 01/18/25 02:15 01/18/25 02:16 DC 01/18/25 02:13 1,000 MG Acetaminophen 1,000 mg ONCE ONCE PO 01/18/25 02:30 01/18/25 02:31 DC 01/18/25 04:02 1,000 MG Albuterol 5 mg ONCE ONCE NEB 01/18/25 02:30 01/18/25 02:31 DC 01/18/25 02:42 5 MG Aspirin 162 mg ONCE ONCE PO 01/18/25 05:15 01/18/25 05:16 DC 01/18/25 05:13 162 MG Azithromycin 500 mg ONCE ONCE PO 01/18/25 02:30 01/18/25 02:31 DC 01/18/25 03:59 500 MG Ceftriaxone Sodium 50 ml @ 100 mls/hr ONCE ONCE IV 01/18/25 02:30 01/18/25 02:59 DC 01/18/25 02:30 100 MLS/HR Potassium Chloride 40 meq ONCE ONCE PO 01/18/25 04:00 01/18/25 04:01 DC 01/18/25 04:00 40 MEQ Prednisone 40 mg ONCE ONCE PO 01/18/25 02:30 01/18/25 02:31 DC 01/18/25 04:00 40 MG Sodium Chloride 1,000 ml @ 1,000 mls/hr Q1H ONCE IV 01/18/25 02:30 01/18/25 03:29 DC 01/18/25 02:30 1,000 MLS/HR Sodium Chloride 1,000 ml @ 1,000 mls/hr Q1H ONCE IV 01/18/25 02:30 01/18/25 03:29 DC 01/18/25 02:30 1,000 MLS/HR Assessment/Plan Assessment/Plan Assessment: Acute respiratory distress, Elevated troponin, Possible pneumonia, Hypokalemia, Possible sleep apnea, Asthma, Methamphetamine abuse, Plan: Admit to Tele, Cariology consult, IV antibiotics, IV steroids, IV hydration, Breathing treatments, Supplemental oxygen as needed, Trend troponin, ECHO, Manage/Monitor electrolytes closely, Plan discussed with: Patient, Spouse My Orders Orders - ALCON RAMIREZ Procedure Category Date Status Time Admit ADMIT 01/18/25 Transmitted 08:16 Code Status CODE 01/18/25 Transmitted 08:16 Hydrocodone-Acet PHA 01/18/25 Logged 5/325mg Tab (Jackson 08:30 Ondansetron Hcl PHA 01/18/25 Logged (Zofran) 08:30 Docusate Sodium PHA 01/18/25 Logged Capsule (Colace 08:30 Complete Blood Count LAB 01/19/25 Verified 04:00 Comprehensive LAB 01/19/25 Verified Metabolic Panel 04:00 Condition: Serious CORI 01/18/25 In Process 08:16 Acetaminophen Tablet PHA 01/18/25 Logged (Tylenol Tablet) 08:30 Ipratropium Medneb PHA 01/18/25 Logged (Atrovent Medneb) 08:30 Albuterol Medneb PHA 01/18/25 Logged (Ventolin Medneb) 08:30 Azithromycin 500mg/ PHA 01/18/25 Logged 250ml (Zithromax 50 10:00 Ceftriaxone 1gm/50ml PHA 01/18/25 Logged D5w (Rocephin) 09:00 Potassium LAB 01/18/25 Logged 08:22 Magnesium LAB 01/18/25 Logged 08:22 * Cardiology Consult CONS 01/18/25 Verified 08:23 Methylprednisolone PHA 01/18/25 Verified Sod Succ (Solu Medrol 10:00 Troponin-I Hs LAB 01/18/25 Verified 08:23 Echo 2d Mode Cardiac US 01/18/25 Verified DOP 08:23 Date of Service: Jan 18, 2025 Billing Provider: ALCON RAMIREZ Common Visit Codes: [id number] INP/OBS CARE (MOD) ALCON RAMIREZ Jan 18, 2025 09:04
[2025-01-18 09:20] LABS: Magnesium 2.0 mg/dL (1.6-2.6)
[2025-01-18 09:21] LABS: Potassium 3.0 mmol/L (3.5-5.1)
[2025-01-18 13:27] LABS: COVID19 ANTIGEN SOFIA FIA NEGATIVE (NEGATIVE); Urine Protein, UAD Negative (Negative)
[2025-01-18] MEDS: MAGNESIUM OXIDE 400 MG TAB PO ONE (13:53)
--- NOTE | 2025-01-18 14:46 | DVHINCON2 ---
Date Seen: Jan 18, 2025 Referring Physician MANOLO Ny Reason for Consultation Elevated troponin History of Present Illness This is a pleasant 54-year-old man who presented to the emergency room with a chief complaint of dizziness since last night. The patient complains of dizziness associated with a headache, loss of hearing, SOB and left-sided chest pain. The patient reports intermittent nonradiating chest pain triggered after drinking beer for the past 5-6 months. There was no 12 lead electrocardiogram in chart or Cardio [employer]. Serial troponin levels peaked at 127 ng/L. Significant medical history includes [id number] diabetes mellitus, asthma, met hamphetamine abuse with latest use two days ago, cannabinoid use, alcohol dependence, and current tobacco use including 16 pack-years. Past Medical History Past medical history reviewed. No other significant than mentioned above. Past Surgical History Appendectomy Family History: FH: pancreatic cancer G8 MOTHER Family History Family history reviewed. Social History See HPI. Allergies: Coded Allergies: No Known Drug Allergy (Verified Allergy, Unknown, 09/01/22) Uncoded Allergies: COVID VACCINE (Allergy, Unknown, 06/13/22) Home Meds Active Scripts Albuterol Sulfate (VENTOLIN MDI) 90 Mcg Ih, 90 MCG IN PRN PRN for SHORTNESS OF BREATH for 30 Days, #30 MCG Prov:RICHARD PAYAN MD 06/22/22 Prednisone (Prednisone) 20 Mg Tab, 20 MG PO BID for 5 Days, #10 TAB Prov:RICHARD PAYAN MD 06/22/22 Albuterol Sulfate (Ventolin) 2.5 Mg/0.5 Ml Nb, 2.5 MG NEB Q4HR for 30 Days, #90 INH Prov:RICHARD PAYAN MD 06/22/22 Ibuprofen (Ibuprofen) 800 Mg Tab, 1 TAB PO TID, #30 TAB Prov:RUSSEL CERVANTES 06/18/22 Sulfamethoxazole W/Trimethopri (Bactrim Ds Tablet) 1 Tab Tb, 1 TAB PO BID for 10 Days, #20 TAB Prov:RUSSEL CERVANTES 06/18/22 Pantoprazole Sodium Sesquihydr (Protonix) 40 Mg Tab, 40 MG PO DAILY, #30 TAB Prov:TASHA VALDEZ MD 09/16/21 Albuterol Sulfate (VENTOLIN MDI) 90 Mcg Ih, 180 MCG IN Q6HP PRN, #1 INH Prov:TASHA VALDEZ MD 09/16/21 Azithromycin (Azithromycin) 500 Mg Tab, 1 TAB PO DAILY, #3 TAB Prov:TASHA VALDEZ MD 09/16/21 Prednisone (Prednisone) 20 Mg Tab, 40 MG PO DAILY for 5 Days, #10 MG Prov:TASHA VALDEZ MD 09/16/21 Nicotine (Nicotine Transdermal Syst) 14 Mg/24 Hr Dis, 14 MG TD DAILY, #14 DIS Prov:TASHA VALDEZ MD 09/16/21 Albuterol Sulfate (VENTOLIN MDI) 90 Mcg Ih, 90 MCG IN Q6HP PRN for 15 Days, #1 MCG Prov:TALI ECHAVARRIA DO 06/25/21 Reported Medications Albuterol Sulfate (Albuterol Sulfate) 0.083 % Neb, 1 VIAL NEB Q4HPRN, #50 VIAL 09/14/21 Home Meds Home medications reviewed. Current Medications Current Medications Medications (Trade) Dose Ordered Sig/Monalisa Route PRN Reason Start Time Stop Time Status Last Admin Acetaminophen/ Hydrocodone Bitart ([place] 5/325MG Tab) 1 tab Q4HP PRN PO MODERATE PAIN (4-6 PAIN SCALE) 01/18/25 08:30 Ondansetron HCl (Zofran) 4 mg Q4HP PRN IV NAUSEA / VOMITING 01/18/25 08:30 Docusate Sodium (Colace Capsule) 100 mg BIDPRN PRN PO FOR CONSTIPATION 01/18/25 08:30 Acetaminophen (Tylenol Tablet) 650 mg Q6HP PRN PO PAIN SCALE 1-3 OR TEMP>100.4 01/18/25 08:30 Ipratropium [place] (Atrovent Medneb) 0.5 mg Q4HPRN PRN NEB SHORTNESS OF BREATH 01/18/25 08:30 Albuterol (Ventolin Medneb) 2.5 mg Q4HPRN PRN NEB SHORTNESS OF BREATH 01/18/25 08:30 Azithromycin 250 ml @ 125 mls/hr DAILY IV 01/19/25 10:00 Ceftriaxone Sodium 50 ml @ 100 mls/hr DAILY@09 IV 01/19/25 09:00 Methylprednisolone Sodium Succinate (Solu Medrol) 40 mg BID IV 01/18/25 22:00 Magnesium Oxide (Mag-Ox Tablet) 400 mg BID PO 01/18/25 22:00 Review of Systems Constitutional: No symptom reported Ears, Nose, & Throat: Loss of hearing Eyes: No symptom reported Neurological: Dizziness, YADAV Pulmonary/Respiratory: SOB Cardiovascular: Chest pain Gastrointestinal: No symptom reported Genitourinary: No symptom reported Musculoskeletal: No symptom reported Skin: No symptom reported Psychiatric: No symptom reported Endocrine: No symptom reported Hemotologic/Lymphatic: No symptom reported Vital Signs Vital Signs Date Time Temp Pulse Resp B/P (MAP) Pulse Ox O2 Delivery O2 Flow Rate FiO2 01/18/25 14:01 90 12 118/85 (96) 97 01/18/25 08:30 Room Air* 0 21 01/18/25 08:29 97.5 97.5 Physical Exam General Appearance: Cooperative. Very somnolent. Obese. In no acute distress Head Exam: Normal inspection Neck Exam: Normal inspection. Non-tender. Normal alignment Pulmonary/Respiratory: Chest non-tender. Crackles to bilateral breath sounds Cardiovascular/Chest: Regular rate and rhythm. S1, S2. Sinus rhythm. No murmurs. No JVD. Peripheral Pulses: 2+ Radial (R). 2+ Radial (L). 2+ Pedal (R). 2+ Pedal (L) Abdominal Exam: Normal bowel sounds Ankle Exam: Positive ankle edema, 2+ Lower extremities: Positive lower extremity edema, 2+ Neuro/Mental Status: A&O x3. Coherent but very somnolent, falls asleep during conversation Thoughts/Psych: Normal thought pattern. Appropriate mood and affect. Good judgement and insight Appearance: In no acute distress Skin Exam: Normal inspection. Normal color. Warm. Dry Labs/Diagnostic Data Labs Test 01/18/25 12:00 01/18/25 08:40 01/18/25 02:35 01/18/25 02:30 Range/Units Urine Color Light-yellow Yellow Urine Clarity Clear Clear Urine pH 5.5 5.0-9.0 Urine Specific [place] 1.010 1.001-1.035 Urine Protein Negative Negative Urine Ketones Negative Negative Urine Blood Negative Negative /uL Urine Nitrite Negative Negative Urine Bilirubin Negative Negative Urine Urobilinogen Normal Negative mg/dL Urine Leukocyte Esterase Negative Negative /uL Urine RBC None seen 0 - 3 /hpf Urine Microscopic WBC 1 0-3 /HPF Urine Squamous Epithelial Cells None seen <5 /hpf Urine Bacteria None seen None Seen /hpf Urine Glucose 4+ H Normal mg/dL Influenza Type A Antigen Negative Negative Influenza Type B Antigen Negative Negative SARS-CoV-2 Antigen (Rapid) Negative NEGATIVE Potassium Level 3.0 L 3.5-5.1 mmol/L Magnesium Level 2.0 1.6-2.6 mg/dL Troponin I High Sensitivity 103 *H </=54 ng/L White Blood Count 5.9 4.4-10.8 10^3/uL Red Blood Count 4.48 L 4.5-5.90 10^6/uL Hemoglobin 13.8 13.5-17.5 g/dL Hematocrit 39.7 L 41.0-53.0 % Mean Corpuscular Volume 88.6 80.0-100.0 fL Mean Corpuscular Hemoglobin 30.8 28.0-32.0 pg Mean Corpuscular Hemoglobin Concent 34.7 32.0-36.0 g/dL Red Cell Distribution Width 13.8 11.8-14.3 % Platelet Count 159 140-450 10^3/uL Mean Platelet Volume 9.0 6.9-10.8 fL Neutrophils (%) (Auto) 87.8 H 37.0-80.0 % Lymphocytes (%) (Auto) 7.8 L 10.0-50.0 % Monocytes (%) (Auto) 4.2 0.0-12.0 % Eosinophils (%) (Auto) 0.1 0.0-7.0 % Basophils (%) (Auto) 0.1 0.0-2.0 % Neutrophils # (Auto) 5.2 1.6-8.6 10 ^3/uL Lymphocytes # (Auto) 0.5 0.4-5.4 10 ^3/uL Monocytes # (Auto) 0.2 0-1.3 10 ^3/uL Eosinophils # (Auto) 0 0-0.8 10 ^3/uL Basophils # (Auto) 0 0-0.2 10 ^3/uL Nucleated Red Blood Cells 0.1 % Sodium Level 136 136-145 mmol/L Chloride Level 102 98-107 mmol/L Carbon Dioxide Level 24 20-31 mmol/L Anion Gap 10 5-15 Blood Urea Nitrogen 15 9-23 mg/dL Creatinine 0.98 0.700-1.30 mg/dL Glomerular Filtration Rate Calc 91 >90 mL/min BUN/Creatinine Ratio 15.3 10.0-20.0 Serum Glucose 152 H 74-106 mg/dL Lactic Acid Level 1.6 0.4-2.0 mmol/L Calcium Level 8.2 L 8.7-10.4 mg/dL Total Bilirubin 0.5 0.2-1.0 mg/dL Aspartate Amino Transferase (AST) 40 13-40 U/L Alanine Aminotransferase (ALT) 36 7-40 U/L Alkaline Phosphatase 100 46-116 U/L B-Type Natriuretic Peptide 1194.70 0-100 pg/mL Total Protein 5.8 5.7-8.2 g/dL Albumin 3.8 3.2-4.8 g/dL Blood Gas Specimen Type Venous Blood Gas Sample Site [facility] - n/a Blood Gas Patient Temperature 37.0 Arterial Blood Date Drawn Jl Test N/a Venous Blood pH 7.518 H 7.320-7.430 Venous Blood pCO2 at Patient Temp 28.5 L 38.0-54.0 mmHg Venous Blood pO2 at Patient Temp 39.5 23.0-48.0 mmHg Venous Blood HCO3 22.6 22.0-29.0 mmol/L Venous Blood Base Excess 1.0 -2.0-3.0 mmol/L Blood Gas Liter Flow 2.00 Blood Gas Modality Nasal cannula FiO2 % 28.0 Assessment [place] decompensated heart failure, NYHA Class IV 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 Monroy) We will continue further cardiac evaluation with a transthoracic echocardiogram to evaluate cardiac function. In the meantime, initiate GDMT for HFrEF and uptitrate as tolerated. Initiate preload and afterload reduction, strict I&Os, fluid restrictions, daily weight, and low Na diet. Obtain a baseline twelve lead electrocardiogram. Replete electrolytes as necessary. DVT/VTE pr ophylaxis. Medical management with no invasive work-up given patient's poor medical compliance including AMA visits in the past and polysubstance abuse. Thank you for allowing us to participate in this patient's care. Please call if you have any questions or concerns. This medical document was created using an electronic medical record system with voice recognition software and computerized dictation system. Although this document has been carefully reviewed, there might still be some phonetic and typographical errors. Occasional wrong-word or ``sound-alike substitutions may have occurred due to the inherent limitations of voice recognition software. These areas are purely typographical due to imperfections of the software programs and do not reflect any compromise in the patient's medical care. Please read the chart carefully and recognize, using context, where these substitutions have occurred. Plan discussed with: Patient, Other NYHA Physical activity limitations: Class4(Severe)discomfort Date of Service: Jan 18, 2025 Billing Provider: MIGUEL BERUMEN Cardiology Common Codes: [id number] INP/OBS CARE (High) MIGUEL BERUMEN Jan 18, 2025 14:46
[2025-01-18] MEDS: FUROSEMIDE 40 MG/4 ML VIAL IV ONE (15:00)
[2025-01-18 15:59] LABS: Amphetamine Screen, Urine Pos (NEGATIVE); Barbiturate Scree,Urine Neg (NEGATIVE); Benzodiazephine Screen, Urine Neg (NEGATIVE); Cannabinoid Screen, Urine Neg (NEGATIVE); Cocaine Screen, Urine Neg (NEGATIVE); Opiate Scree,Urine Neg (NEGATIVE); Phencyclidine Screen, Urine Neg (NEGATIVE)
[2025-01-18] MEDS: ENOXAPARIN SOD 30 MG/0.3 ML SYRINGE SC ONE (16:52)
[2025-01-18 17:54] LABS: Triglycerides 97 mg/dL (< 150)
[2025-01-18 17:55] LABS: Cholesterol 160 mg/dL (< 200)
[2025-01-18 17:56] LABS: HDL Cholesterol 48 mg/dL (40-59)
[2025-01-18] MEDS: IPRATROPIUM BROM 0.5 MG/2.5ML INH SOL NEB PRN (20:13)
[2025-01-18] MEDS: ALBUTEROL SULF 2.5 MG/0.5ML(0.5%) NEB SOLN NEB PRN (20:14)
[2025-01-18] MEDS: LORATADINE 10 MG TAB PO ONE (21:41)
[2025-01-18] MEDS: MAGNESIUM OXIDE 400 MG TAB PO SCH (21:42)
[2025-01-18] MEDS: SACUBITRIL-VALSARTAN 24mg/26mg TAB PO SCH (21:42)
[2025-01-18] MEDS: methylPREDNISolone SOD SUCC 40 MG/ML VL IV SCH (21:42)
[2025-01-18] MEDS: CARVEDILOL 3.125 MG TAB PO SCH (21:47)
[2025-01-18] MEDS: ACETAMINOPHEN 325 MG TAB PO PRN (22:44)
[2025-01-19] VITALS (14 sets, daily range): BP systolic 97–115; BP diastolic 67–80; PULSE 69–100; RESP 17–20; TEMP 96.8–98.2; O2SAT 96–100
[2025-01-19] MEDS: FUROSEMIDE 40 MG/4 ML VIAL IV SCH (05:34)
[2025-01-19 06:51] LABS: Hematocrit 43.3 % (41.0-53.0); Hemoglobin 14.4 g/dL (13.5-17.5); Mean Corpuscular Hemoglobin 29.5 pg (28.0-32.0); Mean Corpuscular Volume 89.0 fL (80.0-100.0); Nucleated Red Blood Cells % 0.0 %
[2025-01-19 07:04] LABS: Albumin 3.5 g/dL (3.2-4.8); Alkaline Phosphatase 91 U/L (46-116); Anion Gap 11 (5-15); BUN/Creatinine Ratio 17.5 (10.0-20.0); Bilirubin, Total 0.5 mg/dL (0.2-1.0); Blood Urea Nitrogen 14 mg/dL (9-23); Carbon Dioxide 23 mmol/L (20-31); Chloride 105 mmol/L (98-107); Magnesium 2.1 mg/dL (1.6-2.6); Potassium 3.5 mmol/L (3.5-5.1); Sodium 139 mmol/L (136-145)
[2025-01-19 07:12] LABS: Alanine Aminotransferase 75 U/L (7-40); Calcium 8.0 mg/dL (8.7-10.4); Glucose 191 mg/dL (74-106); Total Protein 5.6 g/dL (5.7-8.2)
--- NOTE | 2025-01-19 08:30 | DVHSR ---
APPROVED REPORT EXAM: Two-dimensional and M-mode echocardiogram with Doppler and color Doppler. Blood Pressure: 115/71 mmHg INDICATION Chest Pain Elevated Troponin RISK FACTORS Height: 5' 6", Weight: 200 DIMENSIONS LVDd6.9 (3.8-5.7cm)LA (2D)4.9 (1.9-4.0cm)Aortic Root3.6 (2.0-3.7cm) LVDs6.3 (2.5-4.0cm)LA (MM) (1.9-4.0cm)Aortic Cusp Exc1.9 (1.5-2.0cm) EF (%) 17.0 (55-70%)Rt. Atrium5.3 (1.9-4.0cm)Asc. Aorta cm IVSd0.9 (0.7-1.1cm)RV (D) (1.8-2.4cm) PWd1.2 (0.7-1.1cm) Mitral Valve MitralMitral Stenosis E wave0.80m/sMV Mean GR.mmHg A wave0.40m/sMV Peak GR.mmHg E/A ratio2.02D MVAcm2 Aortic Valve Aortic ValveAortic Stenosis V10.60m/Cynthia Mean GR.3mmHg V21.00m/Cynthia Peak GR.4mmHg LVOT Diameter2.5 (1.8-2.4cm)Doppler AVA2.94cm2 AI P 1/2 Ojqk326.75ms Pulmonic Valve V20.60m/s Tricuspid Valve TR Velocity2.60m/s [id number] Other Information Quality : Technically LimitedRhythm : Technically limited study due to Conclusion LVEF severely reduced at 15-20%, global hypokinesis Right ventricle function severely reduced Left and right atium moderately dilated Moderate tricuspid regurgitation, mild pulmonary hypertension
[2025-01-19] MEDS: cefTRIAXone 1GM/50ML D5W 50 ML IV SCH (09:13)
[2025-01-19] MEDS: AZITHROMYCIN 500MG/ 250ML 250 ML IV SCH (09:14)
[2025-01-19] MEDS: ENOXAPARIN SOD 30 MG/0.3 ML SYRINGE SC SCH (09:17)
[2025-01-19] MEDS: SPIRONOLACTONE 25 MG TAB PO SCH (09:18)
[2025-01-19] MEDS: EMPAGLIFLOZIN 10 MG TAB PO SCH (09:20)
--- NOTE | 2025-01-19 11:15 | ECG ---
[facility] Test Date: 2025-01-19 Test Time: 04:19:09 Pat Name: MICKEY YUAN Department: Room: 0278T A Gender: M Biochemistry Specialist: terrence : [id number] Requested By: MIGUEL BERUMEN Order Number: [id number] Reading MD: Jaxon Monroy Measurements Intervals [place] Rate: 87 P: 13 FL: 150 QRS: 4 QRSD: 92 T: 78 QT: 342 QTc: 412 Interpretive Statements Sinus arrhythmia Abnormal R-wave progression, late transition Nonspecific T abnormalities, lateral leads Electronically Signed On 01-24-2025 13:16:59 PDT by Jaxon Monroy Please click the below link to view image of tracing.
--- NOTE | 2025-01-19 12:21 | DVHPN2 ---
Consult Progress Note Subjective Other Systems: Patient in sinus tachycardia on ekg monitor tech. Denies any cardiac symptoms at time of assessment Objective vital signs Vital Sign Date Time Temp Pulse Resp B/P (MAP) Pulse Ox O2 Delivery O2 Flow Rate FiO2 01/19/25 09:18 96 110/73 01/19/25 09:00 97.8 17 97 97.8 01/19/25 08:03 Room Air* 0 21 Total Intake and Output 01/18/25 01/18/25 01/19/25 14:59 22:59 06:59 Intake Total 2050 ml 2191 ml Balance 2050 ml 2191 ml medications Current Medications Medications Dose Ordered Sig/Monalisa Route Start Time Stop Time Status Last Admin Dose Admin Acetaminophen/ Hydrocodone Bitart 1 tab Q4HP PRN PO 01/18/25 08:30 Ondansetron HCl 4 mg Q4HP PRN IV 01/18/25 08:30 Docusate Sodium 100 mg BIDPRN PRN PO 01/18/25 08:30 Acetaminophen 650 mg Q6HP PRN PO 01/18/25 08:30 01/18/25 22:44 650 MG Ipratropium [place] 0.5 mg Q4HPRN PRN NEB 01/18/25 08:30 01/18/25 20:13 0.5 MG Albuterol 2.5 mg Q4HPRN PRN NEB 01/18/25 08:30 01/18/25 20:14 2.5 MG Azithromycin 250 ml @ 125 mls/hr DAILY IV 01/19/25 10:00 01/19/25 09:14 125 MLS/HR Ceftriaxone Sodium 50 ml @ 100 mls/hr DAILY@09 IV 01/19/25 09:00 01/19/25 09:13 100 MLS/HR Methylprednisolone Sodium Succinate 40 mg BID IV 01/18/25 22:00 01/19/25 09:14 40 MG Magnesium Oxide 400 mg BID PO 01/18/25 22:00 01/19/25 09:19 400 MG Furosemide 40 mg BIDD IV 01/19/25 06:00 Empaglifozin 10 mg DAILY PO 01/19/25 10:00 01/19/25 09:20 10 MG Carvedilol 3.125 mg Q12HR PO 01/18/25 22:00 01/19/25 09:18 3.125 MG Spironolactone 12.5 mg DAILY PO 01/19/25 10:00 01/19/25 09:18 12.5 MG Sacubitril/ Valsartan 0.5 tab BID PO 01/18/25 22:00 01/19/25 09:19 0.5 TAB Enoxaparin Sodium 30 mg DAILY SC 01/19/25 10:00 01/19/25 09:17 30 MG Examination: GENERAL:Normal, LUNGS:Normal, CVS:Normal, NEURO:Normal laboratory and microbiology Laboratory Tests 01/19/25 05:54 Test 01/19/25 05:54 Range/Units Serum Glucose 191 H 74-106 mg/dL Problem List/Assessment/Plan Problem List/Assessment/Plan [place] decompensated HFrEF, NYHA Class IV NSTEMI, likely type 2 secondary to above Likely drug induced cardiomyopathy Moderate tricuspid regurgitation Pulmonary hypertension, mild degree Tzz-[id number]-ududkfnco diabetes mellitus Polysubstance abuse including amphetamines Tobacco dependence Obesity Plan/Recommendation(Dr. Monroy) Transthoracic echocardiogram reveals EF 15-20% with global hypokinesis. Continue GDMT for HFrEF and uptitrate as tolerated. Continue preload and afterload reduction, strict I&Os, fluid restrictions, daily weight, and low Na diet. Monitor and replete electrolytes as necessary. DVT/VTE prophylaxis. Medical management with no invasive work-up given patient's poor medical compliance including AMA visits in the past and polysubstance abuse. Patient counseled on risk factors such as amphetamine use and poor diet. At time of assessment, patient noted to be eating food brought in by family including chili cheese fries and hamburgers. The patient was extensively educated on the need to maintain a low-sodium diet. The patient will need to follow up with Cardiology in the outpatient setting within 1-2 weeks post discharge. There is no further inpatient cardiac workup indicated at this time. Thank you for allowing us to participate in this patient's care. Please call if you have any questions or concerns. This medical document was created using an electronic medical record system with voice recognition software and computerized dictation system. Although this document has been carefully reviewed, there might still be some phonetic and typographical errors. Occasional wrong-word or ``sound-alike substitutions may have occurred due to the inherent limitations of voice recognition software. These areas are purely typographical due to imperfections of the software programs and do not reflect any compromise in the patient's medical care. Please read the chart carefully and recognize, using context, where these substitutions have occurred. Plan discussed with: Patient Date of Service: Jan 19, 2025 Billing Provider: DEMETRICE AKINS Common Visit Codes: [id number] INP/OBS CARE(HIGH) DEMETRICE AKINS Jan 19, 2025 12:21
--- NOTE | 2025-01-19 14:03 | DVHPN2 ---
Subjective Patient continues to have shortness of breath. Reviewed: Care Plan, H&P, Labs, Medications Changes from previous H/P or p: No Changes General: Per HPI Eyes: No Pain, No Vision change, No Conjunctivae inflammation, No Eyelid inflammation, No Other, No Redness ENT: No Ear pain, No Ear discharge, No Nose pain, No Nose discharge, No Nose congestion, No Mouth pain, No Mouth swelling, No Throat pain, No Throat swelling, No Other Cardiovascular: Chest Pain; No Palpitations, No Orthopnea, No Paroxysmal Noc. Dyspnea, No Edema, No Lt Headedness, No Other Respiratory: No Cough, No Dry; Shortness of breath, SOB with excertion; No Wheezing, No Hemoptysis, No Pleuritic Pain, No Sputum, No Other Gastrointestinal: No Nausea, No Vomiting, No Abdominal Pain, No Diarrhea, No Constipation, No Melena, No Hematochezia, No Other Genitourinary: No Dysuria, No Frequency, No Incontinence, No Hematuria, No Retention, No Other Musculoskeletal: No other, No neck pain, No shoulder pain, No arm pain, No back pain, No hand pain, No leg pain, No foot pain Skin: No Rash, No Lesions, No Jaundice, No Bruising, No Other Objective Vitals Vital Signs Date Time Temp Pulse Resp B/P (MAP) Pulse Ox O2 Delivery O2 Flow Rate FiO2 01/19/25 13:32 95 20 100 01/19/25 13:25 Room Air 01/19/25 13:25 0 21 01/19/25 10:30 105/62 01/19/25 09:00 97.8 97.8 Intake/Output Intake and Output 01/19/25 07:00 Intake Total 4241 ml Balance 4241 ml Intake Oral 2191 ml IV Total 2050 ml General Appearance: Alert, Oriented X3, Cooperative HEENT: Atraumatic, PERRLA Cardiovascular: Normal S1, Normal S2 Abdomen: Normal bowel sounds, Soft, No tenderness, No hepatospenomegaly Musculoskeletal: Normal sensory function, Normal motor function Neuro: Normal gait, Normal speech Skin: Dry, Intact Psych/Mental Status: Mental status NL, Mood NL Medications Current Medications Medications Dose Ordered Sig/Monalisa Route Start Time Stop Time Status Last Admin Dose Admin Acetaminophen/ Hydrocodone Bitart 1 tab Q4HP PRN PO 01/18/25 08:30 Ondansetron HCl 4 mg Q4HP PRN IV 01/18/25 08:30 Docusate Sodium 100 mg BIDPRN PRN PO 01/18/25 08:30 Acetaminophen 650 mg Q6HP PRN PO 01/18/25 08:30 01/18/25 22:44 650 MG Ipratropium [place] 0.5 mg Q4HPRN PRN NEB 01/18/25 08:30 01/19/25 13:25 0.5 MG Albuterol 2.5 mg Q4HPRN PRN NEB 01/18/25 08:30 01/19/25 13:25 2.5 MG Azithromycin 250 ml @ 125 mls/hr DAILY IV 01/19/25 10:00 01/19/25 09:14 125 MLS/HR Ceftriaxone Sodium 50 ml @ 100 mls/hr DAILY@09 IV 01/19/25 09:00 01/19/25 09:13 100 MLS/HR Methylprednisolone Sodium Succinate 40 mg BID IV 01/18/25 22:00 01/19/25 09:14 40 MG Magnesium Oxide 400 mg BID PO 01/18/25 22:00 01/19/25 09:19 400 MG Furosemide 40 mg BIDD IV 01/19/25 06:00 Empaglifozin 10 mg DAILY PO 01/19/25 10:00 01/19/25 09:20 10 MG Carvedilol 3.125 mg Q12HR PO 01/18/25 22:00 01/19/25 09:18 3.125 MG Spironolactone 12.5 mg DAILY PO 01/19/25 10:00 01/19/25 09:18 12.5 MG Sacubitril/ Valsartan 0.5 tab BID PO 01/18/25 22:00 01/19/25 09:19 0.5 TAB Enoxaparin Sodium 30 mg DAILY SC 01/19/25 10:00 01/19/25 09:17 30 MG Laboratory Results Laboratory Tests 01/19/25 05:54 Chemistry Test 01/19/25 05:54 Albumin 3.5 g/dL (3.2-4.8) Calcium Level 8.0 mg/dL (8.7-10.4) L Magnesium Level 2.1 mg/dL (1.6-2.6) Total Protein 5.6 g/dL (5.7-8.2) L Lipid panel Test 01/18/25 17:15 Cholesterol Level 160 mg/dL (< 200) HDL Cholesterol 48 mg/dL (40-59) Triglycerides Level 97 mg/dL (< 150) Cardiac Markers Test 01/19/25 05:54 B-Type Natriuretic Peptide 1696.72 pg/mL (0-100) LFT Test 01/19/25 05:54 Alanine Aminotransferase (ALT) 75 U/L (7-40) H Alkaline Phosphatase 91 U/L (46-116) Aspartate Amino Transferase (AST) 60 U/L (13-40) H Total Bilirubin 0.5 mg/dL (0.2-1.0) HgA1c, TSH Test 01/18/25 17:15 Hemoglobin A1c 6.5 % A1C (<5.7) H Urinalysis Test 01/18/25 12:00 Urine Color Light-yellow (Yellow) Urine Clarity Clear (Clear) Urine pH 5.5 (5.0-9.0) Urine Specific [place] 1.010 (1.001-1.035) Urine Protein Negative (Negative) Urine Ketones Negative (Negative) Urine Blood Negative /uL (Negative) Urine Nitrite Negative (Negative) Urine Bilirubin Negative (Negative) Urine Urobilinogen Normal mg/dL (Negative) Urine Leukocyte Esterase Negative /uL (Negative) Urine RBC None seen /hpf (0 - 3) Urine Microscopic WBC 1 /HPF (0-3) Urine Squamous Epithelial Cells None seen /hpf (<5) Urine Bacteria None seen /hpf (None Seen) Urine Glucose 4+ mg/dL (Normal) H Microbiology Microbiology Date/Time Source Procedure Growth Status 01/18/25 02:35 Blood Blood Culture - Preliminary NO GROWTH AFTER 24 HOURS OF INCUBATION. Resulted Labs and/or images reviewed: Labs reviewed by me, Image(s) reviewed by me Assessment/Plan Assessment/Plan Impression: -acute decompensated systolic heart failure, HFrEF with EF 15% to 20% -pulmonary vascular congestion -obesity -amphetamine use -diabetes mellitus with hemoglobin A1c 6.5. New diagnosis Plan: -continue to titrate guideline directed medical therapy given patient continues to have heart failure class four -regular insulin sliding scale -stop Solu-Medrol -IV diuresis -repeat chest x-ray and labs in a.m. -lifestyle modification education given to the patient. 10 minutes spent discussing the need to stop smoking cigarettes and using amphetamines. Total time spent with patient discussing and formulating plan of care: 35 minutes. This medical document was created using an electronic medical record system with [employer] dictation system. Although this document has been carefully reviewed, there may still be some phonetic and typographical errors. These areas are purely typographical due to imperfections of the software programs, and do not reflect any compromise in the patient's medical care. Plan discussed with: Patient, Other (RN) My Orders Orders - NADER MCDERMOTT NP Procedure Category Date Status Time Basic Metabolic Panel LAB 01/20/25 Verified 04:00 Magnesium LAB 01/20/25 Verified 04:00 Chest Portable XY 01/20/25 Verified 04:00 Date of Service: Jan 19, 2025 Billing Provider: NADER MCDERMOTT NP Common Visit Codes: [id number] INP/OBS CARE(HIGH) Secondary Visit Codes: [id number] CHNG SMOKING >10MIN NADER MCDERMOTT NP Jan 19, 2025 14:03
[2025-01-20] VITALS (8 sets, daily range): BP systolic 105–110; BP diastolic 64–72; PULSE 98–120; RESP 18–22; TEMP 37.4; O2SAT 96–100
[2025-01-20 06:10] LABS: Anion Gap 12 (5-15); Calcium 8.5 mg/dL (8.7-10.4); Carbon Dioxide 24 mmol/L (20-31); Chloride 102 mmol/L (98-107); Potassium 3.0 mmol/L (3.5-5.1); Sodium 138 mmol/L (136-145)
[2025-01-20 06:16] LABS: BUN/Creatinine Ratio 17.4 (10.0-20.0); Blood Urea Nitrogen 19 mg/dL (9-23)
[2025-01-20 06:17] LABS: Magnesium 1.9 mg/dL (1.6-2.6)
[2025-01-20 06:36] LABS: Glucose 152 mg/dL (74-106)
--- NOTE | 2025-01-20 09:14 | DVH ---
XY CHEST PORTABLE, HISTORY: chf COMPARISON: XY CHEST XRAY 1 VIEW on DOS: 01/18/25, XY CHEST PORTABLE on DOS: 01/27/23, XY CHEST PORTABL E on DOS: 09/01/22 XY CHEST XRAY 1 VIEW on DOS: 01/18/25, XY CHEST PORTABLE on DOS: 01/27/23, XY CHEST PORTABLE on DOS: 09/01/22 TECHNICAL DATA: 1 view of the chest was obtained. FINDINGS: Lines and tubes: None Cardiomediastinal silhouette: enlarged Pulmonary vasculature: normal Lung expansion: normal Lung airspace: normal Lung interstitium: normal Pleura: normal Pneumothorax: no Bones: Unremarkable Other: no IMPRESSION: No acute intrathoracic abnormality. Cardiomegaly.
[2025-01-20] MEDS ORDERED: SPIR25TA8 PO (12:07)
[2025-01-20] MEDS ORDERED: ENAL5TAB85 PO (12:07)
[2025-01-20] MEDS ORDERED: CARV-214 OR (12:07)
[2025-01-20] MEDS ORDERED: FURO1TAB33 PO (12:07)
[2025-01-20] MEDS ORDERED: POTA8TAB38 PO (12:07)
[2025-01-20] MEDS: POTASSIUM EFFERVESENT TAB 25 MEQ PO ONE (13:43)
--- NOTE | 2025-01-20 14:05 | DVHDS2 ---
Discharge Summary Date of Admission Jan 18, 2025 at 08:26 Date of Discharge: Jan 20, 2025 Admitting Diagnosis Acute decompensated heart failure Labs/Diagnostic Data: Laboratory Results Test 01/20/25 04:58 01/19/25 05:54 01/18/25 17:15 01/18/25 12:00 Sodium Level 138 mmol/L (136-145) Potassium Level 3.0 mmol/L (3.5-5.1) Chloride Level 102 mmol/L (98-107) Carbon Dioxide Level 24 mmol/L (20-31) Anion Gap 12 (5-15) Blood Urea Nitrogen 19 mg/dL (9-23) Creatinine 1.09 mg/dL (0.700-1.30) Glomerular Filtration Rate Calc 80 mL/min (>90) BUN/Creatinine Ratio 17.4 (10.0-20.0) Serum Glucose 152 mg/dL (74-106) Calcium Level 8.5 mg/dL (8.7-10.4) Magnesium Level 1.9 mg/dL (1.6-2.6) B-Type Natriuretic Peptide 1743.51 pg/mL (0-100) White Blood Count 7.0 10^3/uL (4.4-10.8) Red Blood Count 4.87 10^6/uL (4.5-5.90) Hemoglobin 14.4 g/dL (13.5-17.5) Hematocrit 43.3 % (41.0-53.0) Mean Corpuscular Volume 89.0 fL (80.0-100.0) Mean Corpuscular Hemoglobin 29.5 pg (28.0-32.0) Mean Corpuscular Hemoglobin Concent 33.2 g/dL (32.0-36.0) Red Cell Distribution Width 13.9 % (11.8-14.3) Platelet Count 164 10^3/uL (140-450) Mean Platelet Volume 9.3 fL (6.9-10.8) Neutrophils (%) (Auto) 88.6 % (37.0-80.0) Lymphocytes (%) (Auto) 6.5 % (10.0-50.0) Monocytes (%) (Auto) 4.9 % (0.0-12.0) Eosinophils (%) (Auto) 0.0 % (0.0-7.0) Basophils (%) (Auto) 0.0 % (0.0-2.0) Neutrophils # (Auto) 6.2 10 ^3/uL (1.6-8.6) Lymphocytes # (Auto) 0.5 10 ^3/uL (0.4-5.4) Monocytes # (Auto) 0.3 10 ^3/uL (0-1.3) Eosinophils # (Auto) 0 10 ^3/uL (0-0.8) Basophils # (Auto) 0 10 ^3/uL (0-0.2) Nucleated Red Blood Cells 0.0 % Total Bilirubin 0.5 mg/dL (0.2-1.0) Aspartate Amino Transferase (AST) 60 U/L (13-40) Alanine Aminotransferase (ALT) 75 U/L (7-40) Alkaline Phosphatase 91 U/L (46-116) Total Protein 5.6 g/dL (5.7-8.2) Albumin 3.5 g/dL (3.2-4.8) Hemoglobin A1c 6.5 % A1C (<5.7) Triglycerides Level 97 mg/dL (< 150) Cholesterol Level 160 mg/dL (< 200) LDL Cholesterol 102 mg/dL (< 100) HDL Cholesterol 48 mg/dL (40-59) Plasma/Serum Blood Alcohol < 3.0 mg/dL (<10) Urine Color Light-yellow (Yellow) Urine Clarity Clear (Clear) Urine pH 5.5 (5.0-9.0) Urine Specific [place] 1.010 (1.001-1.035) Urine Protein Negative (Negative) Urine Ketones Negative (Negative) Urine Blood Negative /uL (Negative) Urine Nitrite Negative (Negative) Urine Bilirubin Negative (Negative) Urine Urobilinogen Normal mg/dL (Negative) Urine Leukocyte Esterase Negative /uL (Negative) Urine RBC None seen /hpf (0 - 3) Urine Microscopic WBC 1 /HPF (0-3) Urine Squamous Epithelial Cells None seen /hpf (<5) Urine Bacteria None seen /hpf (None Seen) Urine Glucose 4+ mg/dL (Normal) Urine Opiates Screen Neg (NEGATIVE) Urine Fentanyl Screen Neg (NEGATIVE) Urine Barbiturates Screen Neg (NEGATIVE) Urine Phencyclidine Screen Neg (NEGATIVE) Urine Amphetamines Screen Pos (NEGATIVE) Urine Benzodiazepines Screen Neg (NEGATIVE) Urine Cocaine Screen Neg (NEGATIVE) Urine Cannabinoids Screen Neg (NEGATIVE) Influenza Type A Antigen Negative (Negative) Influenza Type B Antigen Negative (Negative) SARS-CoV-2 Antigen (Rapid) Negative (NEGATIVE) Test 01/18/25 08:40 01/18/25 02:35 01/18/25 02:30 Troponin I High Sensitivity 103 ng/L (</=54) Thyroid Stimulating Hormone (TSH) 0.46 uIU/mL (0.55-4.78) Lactic Acid Level 1.6 mmol/L (0.4-2.0) Blood Gas Specimen Type Venous Blood Gas Sample Site Vbg - n/a Blood Gas Patient Temperature 37.0 Arterial Blood Date Drawn [id number] Jl Test N/a Venous Blood pH 7.518 (7.320-7.430) Venous Blood pCO2 at Patient Temp 28.5 mmHg (38.0-54.0) Venous Blood pO2 at Patient Temp 39.5 mmHg (23.0-48.0) Venous Blood HCO3 22.6 mmol/L (22.0-29.0) Venous Blood Base Excess 1.0 mmol/L (-2.0-3.0) Blood Gas Liter Flow 2.00 Blood Gas Modality Nasal cannula FiO2 % 28.0 Other Laboratory Tests 01/20/25 04:58 01/19/25 05:54 Brief Hx & Hospital Course: History of Present Illness Chang Lopez is a 54-year-old male with past medical history of asthma, who came to the hospital for shortness of breath and chest pain. Patient states his symptoms began about 2 days ago. When he arrived in ER he was tachypneic, tachycardic, and febrile. Labs revealed hypokalemia, Initial troponin was elevated, with subsequent troponin increasing. Patient states he does use methamphetamines, last use was 2 days ago. Influenza A&B and COVID swabs are pending. Patient will be admitted for further care. Course of hospitalization: Patient had echocardiogram which revealed ejection fraction of 15% to 20%. Cardiology consultation was obtained. Patient had titration of guideline directed medical therapy. [place] heart failure classification improved class two. Patient has bilateral lower extremity swelling has improved dramatically. Patient is now able to ambulate greater than 100 ft without any dyspnea. Long discussion was made with the patient regarding abstaining from smoking and amphetamine use. Patient will be discharged home and continue guideline directed medical therapy as started in the hospital as well as potassium replacement and Lasix. He will follow up with the discharge Clinic in one week. All questions answered. Physical examination General: Alert and Oriented x3. No acute distress. Well-nourished. Eyes: EOMI. Anicteric. HENT: Moist mucous membranes. Lungs: Clear to auscultation bilaterally. No accessory muscle use. Cardiovascular: Regular rate and rhythm. No murmur. No JVD. Abdomen: Soft, non-tender and non-distended. No palpable masses. Extremities: No edema. Non-tender. Skin: No rashes or lesions. Warm. Neurologic: No focal neurological deficits. CN II-XII grossly intact, but not individually tested. Psychiatric: Cooperative. Appropriate mood and affect. Total time spent with patient discussing and formulating plan of care: 35 minutes. This medical document was created using an electronic medical record system with [employer] dictation system. Although this document has been carefully reviewed, there may still be some phonetic and typographical errors. These areas are purely typographical due to imperfections of the software programs, and do not reflect any compromise in the patient's medical care. Consults/Reason for consult Cardiology: Acute decompensated heart failure Condition at Discharge: Guarded Final Diagnosis/Problems List Acute Decompensated Heart Failure Secondary diagnosis: -acute decompensated systolic heart failure, HFrEF with EF 15% to 20% -pulmonary vascular congestion -obesity -amphetamine use -diabetes mellitus with hemoglobin A1c 6.5. New diagnosis Discharge Disposition: Home Discharge Instruct/Medications Diet: Cardiac 2g Na,low cholest Diet comment: Fluid Restriction 1500ml daily Activity: No Restrictions, As Tolerated Follow Up/Referral: DC clnic in 1 week Medications: Spirinolactone 12.5mg po bid Lasix 20mg po daily Klor-con 8meq daily Coreg 3.125mg po bid Vasotec 5mg po daily (start 01/22/25) Scheduled Albuterol Sulfate (Albuterol Sulfate), 1 VIAL NEB Q4HPRN, (Reported) Albuterol Sulfate (Ventolin), 2.5 MG NEB Q4HR Azithromycin (Azithromycin), 1 TAB PO DAILY Carvedilol (Coreg), 3.125 MG OR BID Enalapril Maleate (Vasotec), 1 TAB PO DAILY Furosemide (Lasix), 1 TAB PO DAILY Nicotine (Nicotine Transdermal Syst), 14 MG TD DAILY Pantoprazole Sodium Sesquihydr (Protonix), 40 MG PO DAILY Potassium Chloride (Klor-Con 8), 8 MEQ PO DAILY Spironolactone (Spironolactone), 0.5 TAB PO DAILY Scheduled PRN Albuterol Sulfate (Ventolin Mdi), 90 MCG IN Q6HP PRN Albuterol Sulfate (Ventolin Mdi), 180 MCG IN Q6HP PRN Albuterol Sulfate (Ventolin Mdi), 90 MCG IN PRN PRN for SHORTNESS OF BREATH Discontinued Medications Ibuprofen (Ibuprofen), 1 TAB PO TID Prednisone (Prednisone), 40 MG PO DAILY Prednisone (Prednisone), 20 MG PO BID Sulfamethoxazole W/Trimethopri (Bactrim Ds Tablet), 1 TAB PO BID 36 Discharge Statement: "Patient was advised to return to the ER or call 911 if any headaches, dizziness, shortness of breath, chest pain, abdominal pain, bleeding, fevers, or worsening of medical condition. Patient was counseled about treatment plan, medications, possible side effects, patientverbalized understanding. All questions were answered to the best of my ability. This discharge took greater then 30 minutes in planning, reviewing documentation, counseling the patient, and discussing with other team members." ASSESSMENT ASSESSMENT Assessment Acute Decompensated Heart Failure Date of Service: Jan 20, 2025 Billing Provider: NADER MCDERMOTT NP Common Visit Codes: [id number]/OBS DISCH DAY >30min NADER MCDERMOTT NP Jan 20, 2025 14:05
== END 2025-01-20 13:50 | disposition home or self-care (01) | DRG 194 ==
LOC: ER 02:04 → UNDOADMIN 08:16 → OVERFLOW 08:16 → TELE-WESTW 15:53
PROVIDERS: ADMIT Nurse Practitioner Acute Care; ATTEND Nurse Practitioner Acute Care
PROC: 5A09357 Assistance with Respiratory Ventilation, Less than 24 Consecutive Hours, Continuous Positive Airway Pressure (ICD-10-PCS; principal; 2025-01-19)
DX: I50.23 Acute on chronic systolic (congestive) heart failure (principal); I21.A1 Myocardial infarction type 2; I27.20 Pulmonary hypertension, unspecified; Z68.31 Body mass index [BMI] 31.0-31.9, adult; E11.9 Type 2 diabetes mellitus without complications; J45.909 Unspecified asthma, uncomplicated; E66.9 Obesity, unspecified; I07.1 Rheumatic tricuspid insufficiency; Z20.822 Contact with and (suspected) exposure to COVID-19; F15.10 Other stimulant abuse, uncomplicated; E87.6 Hypokalemia; F17.210 Nicotine dependence, cigarettes, uncomplicated; J98.4 Other disorders of lung; Z90.49 Acquired absence of other specified parts of digestive tract; Z88.7 Allergy status to serum and vaccine; Z80.0 Family history of malignant neoplasm of digestive organs; Z79.84 Long term (current) use of oral hypoglycemic drugs
CPT/HCPCS: 36415; 36600; 71045; 80048; 80053; 80061; 80307; 80320; 81001; 82805; 83036; 83605; 83735; 83880; 84132; 84443; 84484; 85025; 87040; 87426; 87804; 93005; 93306; 94640; 94660; 96365; 96372; 96375; 99291; G0378

== ENCOUNTER 2025-03-10 20:47 | Inpatient (IN) | payer MEDICAID ==
[~2025-03-10] VITALS: Ht 167.6 cm; Wt 89.7 kg
[~2025-03-10 20:47] MED LIST changes: -BACDST PO; +CARV-214 OR; +ENAL5TAB85 PO; +FURO1TAB33 PO; -IBUP-1456 PO; +POTA8TAB38 PO; -PRED20TA2 PO; +SPIR25TA8 PO
--- NOTE | 2025-03-10 21:04 | ECG ---
[facility] Test Date: 2025-03-10 Test Time: 20:57:04 Pat Name: MICKEY YUAN Department: ED Room: [address] [place] [address] Gender: M [employer] Manager: MAYELIN : 1970 Requested By: EMERGENCY EMERGENCY Order Number: [id number] Reading MD: Jaxon Mornoy Measurements Intervals [place] Rate: 104 P: 75 OR: 150 QRS: 53 QRSD: 89 T: 0 QT: 328 QTc: 432 Interpretive Statements Sinus tachycardia Left atrial enlargement Nonspecific repol abnormality, lateral leads Electronically Signed On 03-11-2025 20:38:40 PDT by Jaxon Monroy Please click the below link to view image of tracing.
[2025-03-10 21:47] LABS: Hematocrit 42.0 % (41.0-53.0); Hemoglobin 14.0 g/dL (13.5-17.5); Mean Corpuscular Hemoglobin 31.1 pg (28.0-32.0); Mean Corpuscular Volume 93.6 fL (80.0-100.0); Nucleated Red Blood Cells % 0.0 %
[2025-03-10 21:57] LABS: Anion Gap 11 (5-15); Carbon Dioxide 28 mmol/L (20-31)
[2025-03-10 21:59] LABS: Calcium 8.4 mg/dL (8.7-10.4); Chloride 108 mmol/L (98-107); Potassium 3.5 mmol/L (3.5-5.1); Sodium 147 mmol/L (136-145)
[2025-03-10 22:03] LABS: BUN/Creatinine Ratio 12.0 (10.0-20.0); Blood Urea Nitrogen 13 mg/dL (9-23); Glucose 130 mg/dL (74-106)
--- NOTE | 2025-03-10 22:08 | DVH ---
CHEST RADIOGRAPH Indication: cp Technique: Single frontal view of the chest was obtained COMPARISON: XY CHEST PORTABLE on DOS: 01/20/25, XY CHEST XRAY 1 VIEW on DOS: 01/18/25, XY CHEST PORTABL E on DOS: 01/27/23, XY CHEST PORTABLE on DOS: 09/01/22, XY CHEST PORTABLE on DOS: 08/11/22 FINDINGS: Lines and Tubes: None Lungs: Clear Pleura: No effusion. No pneumothorax. Cardiomediastinal contours: Cardiomegaly. Bones: Unremarkable IMPRESSION: 1. Cardiomegaly.
--- NOTE | 2025-03-10 23:19 | ED.PDOC ---
HPI Comments 54-year-old male who came to ER for chest pains. Patient has a history of diabetes, congestive heart failure and methamphetamine abuse. Has been complaining of right-sided chest pains, non radiating since yesterday, asso ciated with dizziness and shortness a breath. Chief Complaint: Chest Pain Time Seen by MD: 23:18 Primary Care Provider: UNKNOWN Reviewed Notes: Nurses Notes Allergies: Coded Allergies: No Known Drug Allergy (Verified Allergy, Unknown, 09/01/22) Uncoded Allergies: COVID VACCINE (Allergy, Unknown, 06/13/22) Home Meds Active Scripts Enalapril Maleate (Vasotec) 5 Mg Tab, 1 TAB PO DAILY, #30 TAB 5 Refills Prov:NADER MCDERMOTT NP 01/20/25 Carvedilol (COREG) 3.125 Mg Tab, 3.125 MG OR BID for 30 Days, #60 TAB Prov:NADER MCDERMOTT NP 01/20/25 Spironolactone (Spironolactone) 25 Mg Tab, 0.5 TAB PO DAILY, #30 TAB 5 Refills Prov:NADER MCDERMOTT NP 01/20/25 Potassium Chloride (Klor-Con 8) 8 Meq Tab, 8 MEQ PO DAILY for 30 Days, #30 TAB Prov:NADER MCDERMOTT NP 01/20/25 Furosemide (Lasix) 20 Mg Tb, 1 TAB PO DAILY for 30 Days, #30 TAB 1 Refill Prov:NADER MCDERMOTT NP 01/20/25 Albuterol Sulfate (VENTOLIN MDI) 90 Mcg Ih, 90 MCG IN PRN PRN for SHORTNESS OF BREATH for 30 Days, #30 MCG Prov:RICHARD PAYAN MD 06/22/22 Albuterol Sulfate (Ventolin) 2.5 Mg/0.5 Ml Nb, 2.5 MG NEB Q4HR for 30 Days, #90 INH Prov:RICHARD PAYAN MD 06/22/22 Pantoprazole Sodium Sesquihydr (Protonix) 40 Mg Tab, 40 MG PO DAILY, #30 TAB Prov:TASHA VALDEZ MD 09/16/21 Albuterol Sulfate (VENTOLIN MDI) 90 Mcg Ih, 180 MCG IN Q6HP PRN, #1 INH Prov:TASHA VALDEZ MD 09/16/21 Azithromycin (Azithromycin) 500 Mg Tab, 1 TAB PO DAILY, #3 TAB Prov:TASHA VALDEZ MD 09/16/21 Nicotine (Nicotine Transdermal Syst) 14 Mg/24 Hr Dis, 14 MG TD DAILY, #14 DIS Prov:TASHA VALDEZ MD 09/16/21 Albuterol Sulfate (VENTOLIN MDI) 90 Mcg Ih, 90 MCG IN Q6HP PRN for 15 Days, #1 MCG Prov:TALI ECHAVARRIA DO 06/25/21 Reported Medications Albuterol Sulfate (Albuterol Sulfate) 0.083 % Neb, 1 VIAL NEB Q4HPRN, #50 VIAL 09/14/21 Information Source: Patient Mode of Arrival: Ambulatory Severity: Moderate Timing: Hours Duration: Since onset Location: Chest (R) Radiation: No Radiation Quality: Pressure Onset: With Light Exertion Cardiac Risk Factors: Diabetes Associated Signs and Symptoms: SOB Past Medical History PAST MEDICAL HISTORY: Asthma, CHF, DM, IN Surgical History: Appendectomy Family History Family History: Reviewed,noncontributory to illness Social History Smoker: Less Than 1 Pack/Day Alcohol: Occasionally Drugs: Methamphetamine Lives In: Home Constitutional: denies: chills, diaphoresis, fatigue, fever, malaise, sweats, weakness, others EENTM: denies: blurred vision, double vision, ear bleeding, ear discharge, ear drainage, ear pain, ear ringing, eye pain, eye redness, hearing loss, mouth pa in, mouth swelling, nasal discharge, nose bleeding, nose congestion, nose pain, photophobia, tearing, throat pain, throat swelling, voice changes, others Respiratory: reports: SOB at rest, shortness of breath; denies: cough, hemoptysis, orthopnea, SOB with excertion, stridor, wheezing, others Cardiovascular: reports: chest pain, dizzy spells; denies: diaphoresis, Dyspnea on exertion, edema, irregular heart beat, left arm pain, lightheadedness, palpitations, PND, syncope, others Gastrointestinal: denies: abdomen distended, abdominal pain, blood streaked bowels, constipated, diarrhea, dysphagia, difficulty swallowing, hematemesis, melena, nausea, poor appetite, poor fluid intake, rectal bleeding, rectal pain, vomiting, others Genitourinary: denies: burning, dysuria, flank pain, frequency, hematuria, incontinence, penile discharge, penile sore, pain, testicle pain, testicle swelling, urgency, others Neurological: denies: dizziness, fainting, headache, left sided numbness, left sided weakness, numbness, paresthesia, pre-existing deficit, right sided numbness, right sided weakness, seizure, speech problems, tingling, tremors, weakness, others Musculoskeletal: denies: back pain, gout, joint pain, joint swelling, muscle pain, muscle stiffness, neck pain, others Integumetry: denies: bruises, change in color, change in hair/nails, dryness, laceration, lesions, lumps, rash, wounds, others Allergic/Immunocompromised: denies: Difficulty Healing, Frequent Infections, Hives, Itching, others Hematologic/Lymphatic: denies: anemia, blood clots, easy bleeding, easy bruising, swollen glands, others Endocrine: denies: excessive hunger, excessive sweating, excessive thirst, excessive urination, flushing, intolerance to cold, intolerance to heat, unexplained weight gain, unexplained weight loss, others Psychiatric: denies: anxiety, bipolar disorder, depression, hopeless, panic disorder, schizophrenia, sleepless, suicidal, others Physical Exam General Appearance: No Apparent Distress, Normal HEENT: Normal ENT Inspection, Pharynx Normal, TMs Normal Neck: Full Range of Motion, Non-Tender, Normal, Normal Inspection Respiratory: Chest Non-Tender, Lungs Clear, No Accessory Muscle Use, No Respiratory Distress, Normal Breath Sounds Cardiovascular: No Edema, No JVD, No Murmur, No Gallop, Normal Peripheral Pulses, Regular Rate/Rhythm Breast Exam: Deferred Gastrointestinal: No Organomegaly, Non Tender, No Pulsatile Mass, Normal Bowel Sounds, Soft Genitalia: Deferred Pelvic: Deferred Rectal: Deferred Extremities: No calf tenderness, Normal capillary refill, Normal inspection, Normal range of motion, Non-tender, No pedal edema Musculoskeletal : Apperance: Normal Neurologic: Alert, design specialist II-XII nml as Tested, No Motor Deficits, Normal Affect, Normal Mood, No Sensory Deficits Cerebellar Function: Normal Reflexes: Normal Skin: Dry, Normal Color, Warm Lymphatic: No Adenopathy EKG EKG : Pulse Rate (adult): 104 Cardiac Rhythm: ST Hypertrophy: LAE Was a procedure done? Was a procedure done?: No CP Differential Dx Differential Diagnosis: Angina, Anxiety / Panic Attack Differential Diagnosis: CHF Differential Diagnosis: Angina, Chest Wall Pain, Costochondritis, Esophageal reflux/spasm, Gastritis, Myocardial Infarction X-Ray, Labs, Meds, VS Vital Signs Date Time Temp Pulse Resp B/P (MAP) Pulse Ox O2 Delivery O2 Flow Rate FiO2 03/10/25 23:19 104 03/10/25 20:57 104 03/10/25 20:49 97.7 63 18 116/80 94 97.7 Lab Test 03/11/25 00:13 03/10/25 22:24 03/10/25 21:32 Range/Units Troponin I High Sensitivity Pending 74 *H 75 *H </=54 ng/L White Blood Count 8.8 4.4-10.8 10^3/uL Red Blood Count 4.49 L 4.5-5.90 10^6/uL Hemoglobin 14.0 13.5-17.5 g/dL Hematocrit 42.0 41.0-53.0 % Mean Corpuscular Volume 93.6 80.0-100.0 fL Mean Corpuscular Hemoglobin 31.1 28.0-32.0 pg Mean Corpuscular Hemoglobin Concent 33.2 32.0-36.0 g/dL Red Cell Distribution Width 15.7 H 11.8-14.3 % Platelet Count 211 140-450 10^3/uL Mean Platelet Volume 9.0 6.9-10.8 fL Neutrophils (%) (Auto) 64.9 37.0-80.0 % Lymphocytes (%) (Auto) 27.5 10.0-50.0 % Monocytes (%) (Auto) 6.9 0.0-12.0 % Eosinophils (%) (Auto) 0.5 0.0-7.0 % Basophils (%) (Auto) 0.2 0.0-2.0 % Neutrophils # (Auto) 5.7 1.6-8.6 10 ^3/uL Lymphocytes # (Auto) 2.4 0.4-5.4 10 ^3/uL Monocytes # (Auto) 0.6 0-1.3 10 ^3/uL Eosinophils # (Auto) 0 0-0.8 10 ^3/uL Basophils # (Auto) 0 0-0.2 10 ^3/uL Nucleated Red Blood Cells 0.0 % Sodium Level 147 H 136-145 mmol/L Potassium Level 3.5 3.5-5.1 mmol/L Chloride Level 108 H 98-107 mmol/L Carbon Dioxide Level 28 20-31 mmol/L Anion Gap 11 5-15 Blood Urea Nitrogen 13 9-23 mg/dL Creatinine 1.08 0.700-1.30 mg/dL Glomerular Filtration Rate Calc 81 >90 mL/min BUN/Creatinine Ratio 12.0 10.0-20.0 Serum Glucose 130 H 74-106 mg/dL Calcium Level 8.4 L 8.7-10.4 mg/dL Time of 1ST Reevaluation: 23:16 Reevaluation 1ST: Unchanged Patient Education/Counseling: Diagnosis, Treatment Family Education/Counseling: No Family Present SEPSIS Sepsis Screen Date sepsis recognized/suspect: Mar 10, 2025 Time Sepsis recognized/suspect: 2051 Recent Procedure: No On Antibiotic Therapy: No Respiratory Rate >20: No Heart Rate >90: No Temp<36 C (96.8 F) or >38.3 C: No SBP <90 or MAP <65 mmHG: No New Acute Mental Status Change: No Is the patient on CPAP, BIPAP,: No Physician Orders Chest Portable (03/10/25 21:29) Troponin-I Hs (03/11/25 00:29) Ciprofloxacin 0.3% Opthalmic (Cipro Opth (03/11/25 01:00) Vital Signs Date Time Temp Pulse Resp B/P (MAP) Pulse Ox O2 Delivery O2 Flow Rate FiO2 03/10/25 23:19 104 03/10/25 20:57 104 03/10/25 20:49 97.7 63 18 116/80 94 97.7 Laboratory Tests Test 03/10/25 21:32 White Blood Count 8.8 10^3/uL (4.4-10.8) Departure 1 Departure Time of Disposition: 01:03 (Patient presented with chest pain that was concerning for possible STEMI, ACS, PE, Pneumonia, Muscle Strain, COPD, Dissection. Data: 1. I ordered and reviewed the result of at least 3 labs including a CBC, BMP, and Troponin. 2. I independently interpreted the following tests: EKG which shows sinus arrhythmia and Chest X-ray which shows benign chest.Risk:This patient has a high risk of morbidity due to further diagnostic testing or treatment and may suffer from an acute cardiac or respiratory disorder. Workup reveals concern for ACS and patient should be admitted for further workup and possible expert consultation. ) Impression: Primary Impression: Acute chest pain Additional Impression: Bacterial conjunctivitis of left eye Disposition: ADMITTED INPATIENT Admit to: Med Surg Condition: Guarded Critical Care Note Critical Care Time?: Yes (35 min-critical care time only) Critical care comment: Chest pains Authorized and Performed by: Rose Davis MD Total critical care time: Approximately 39 minutes Due to a high probability of clinically significant, life threatening deteriorat ion, the patient required my highest level of preparedness to intervene emergently and I personally spent this critical care time directly and personally managing the patient. This critical care time included obtaining a history; examining the patient; pulse oximetry; ordering and review of studies; arranging urgent treatment with development of a management plan; evaluation of patient's response to treatment; frequent reassessment; and, discussions with other providers. This critical care time was performed to assess and manage the high probability of imminent, life-threatening deterioration that could result in multi-organ failure. It was exclusive of separately billable procedures and treating other patients and teaching time. Please see my other sections and the rest of the note for further information on patient assessment and treatment. Stability Stability form required: No Heart Score Heart Score: Heart Score Response (Comments) Value History Moderate Suspicious 1 EKG Repolarization Disturb 1 Age 45-64 1 Risk Factors 1 or 2 risk factors 1 Troponin 1-2 x's Normal limit 1 Total 5 I personally scribed for ROSE DAVIS MD ([email or web address]) on 03/10/25 at 23:19. Electronically submitted by Steven Woodall ([email or web address]). ROSE DAVIS MD Mar 10, 2025 23:19
[2025-03-11] MEDS ORDERED: FUROSEMIDE 20 MG/2 ML VIAL IV SCH (02:00)
[2025-03-11] MEDS ORDERED: ATORVASTATIN 20 MG TAB PO SCH (02:00)
[2025-03-11] MEDS: ENALAPRIL MALEATE 2.5 MG TAB PO SCH (02:00)
--- NOTE | 2025-03-11 02:09 | DVHHPRES ---
History of Present Illness Resident Creating Document: MUSA ANGELO History of Present Illness Mr. Lopez Is a 54-year-old male with prior medical history of HFrEF, type 2 diabetes mellitus, and hypertension, who presents today with chief complaint of chest pain. The patient states that yesterday he had sudden onset of constant sharp left-sided chest pain, nonradiating, 7/10, associated with bilateral lower extremity swelling and shortness of breaths which worsens when he lays flat or on exertion. he denies nausea, fever, vomiting, cough, palpitation, and other symptoms. He was discharged from this institution on 01/20/2025 where he was diagnosed with HFrEF with an ejection fraction between 10-15%. He was discharged on GDM T, which he states he took for 3 days and then ceased treatment. Due to persistent symptoms the patient sought medical attention at the emergency department. On evaluation in the ED, the patient was in mild distress, tachycardic, with other vitals within normal range. 12 lead EKG shows sinus tachycardia without ST alterations. Initial labs show CBC within normal range, hypernatremia, hyperglycemia, and elevated flat trending troponins. The patient was started on IV furosemide and GDM T. He was admitted for further workup and management. Personal history: HFrEF, methamphetamine associated cardiomyopathy, type 2 diabetes mellitus, hypertension Surgical history: appendectomy, left knee repair Allergies: Denies Social: Refers habitual methamphetamine use for the last 4-5 years, states he last used 1 week ago, refers occasional alcohol use, states he has smoked a pack a week for the last 4 years. States he lives alone. Review of Systems Review of Systems Constitutional: Denies weight loss, fever and chills. HEENT: Denies changes in vision and hearing. Respiratory: Refers shortness of breath, denies cough Cardiovascular: Refers left-sided chest pain, denies palpitations GI: Denies abdominal distention, abdominal pain, diarrhea : Denies dysuria and urinary frequency. Musculoskeletal: Refers bilateral lower leg edema Skin: Denies rash and pruritus. Neurological: denies dizziness headache vision or hearing problems Allergies: Coded Allergies: No Known Drug Allergy (Verified Allergy, Unknown, 09/01/22) Uncoded Allergies: COVID VACCINE (Allergy, Unknown, 06/13/22) Medications Current Medications Medications Dose Ordered Sig/Monalisa Route Start Time Stop Time Status Last Admin Dose Admin Enoxaparin Sodium 40 mg DAILY SC 03/11/25 10:00 Empaglifozin 10 mg DAILY PO 03/11/25 02:00 UNV Enalapril Maleate 5 mg DAILY PO 03/11/25 02:00 UNV Spironolactone 25 mg DAILY PO 03/11/25 02:00 UNV Atorvastatin Calcium 40 mg HS PO 03/11/25 02:00 UNV Furosemide 20 mg DAILY IV 03/11/25 02:00 UNV Exam Vital Signs Vital Signs Date Time Temp Pulse Resp B/P (MAP) Pulse Ox O2 Delivery O2 Flow Rate FiO2 03/10/25 23:19 104 03/10/25 20:49 97.7 18 116/80 94 97.7 Exam General: The patient alert and oriented in person place and time. Patient following commands HEENT: Normocephalic, atraumatic, right pupil normal reactive, left pupil is milky with red conjunctiva and some purulent discharge, EOM intact, right pink conjunctiva, pink moist mucous membrane Respiratory/pulmonary: Bilateral chest expansion, no pain on palpation of chest wall, clear lungs bilaterally, vesicular murmurs present in almost all lung garcia, no associated crackles or wheezes. Cardiovascular: Tachycardic, normal S1 and S2, no murmurs Abdomen: Abdomen nondistended, normal bowel sounds, soft, there is no pain to palpation in any of the abdominal quadrants, no palpable masses. Extremities: No deformities, bilateral lower extremity pitting edema +3 reaching up to knees, normal pulses Skin: No rashes or pruritus, there is no sacral edema present at this time. Neurological: Intact cranial nerves with no focal neurologic deficits Labs/Xrays Labs Test 03/11/25 00:13 03/10/25 21:32 Range/Units Troponin I High Sensitivity 71 *H </=54 ng/L White Blood Count 8.8 4.4-10.8 10^3/uL Red Blood Count 4.49 L 4.5-5.90 10^6/uL Hemoglobin 14.0 13.5-17.5 g/dL Hematocrit 42.0 41.0-53.0 % Mean Corpuscular Volume 93.6 80.0-100.0 fL Mean Corpuscular Hemoglobin 31.1 28.0-32.0 pg Mean Corpuscular Hemoglobin Concent 33.2 32.0-36.0 g/dL Red Cell Distribution Width 15.7 H 11.8-14.3 % Platelet Count 211 140-450 10^3/uL Mean Platelet Volume 9.0 6.9-10.8 fL Neutrophils (%) (Auto) 64.9 37.0-80.0 % Lymphocytes (%) (Auto) 27.5 10.0-50.0 % Monocytes (%) (Auto) 6.9 0.0-12.0 % Eosinophils (%) (Auto) 0.5 0.0-7.0 % Basophils (%) (Auto) 0.2 0.0-2.0 % Neutrophils # (Auto) 5.7 1.6-8.6 10 ^3/uL Lymphocytes # (Auto) 2.4 0.4-5.4 10 ^3/uL Monocytes # (Auto) 0.6 0-1.3 10 ^3/uL Eosinophils # (Auto) 0 0-0.8 10 ^3/uL Basophils # (Auto) 0 0-0.2 10 ^3/uL Nucleated Red Blood Cells 0.0 % Sodium Level 147 H 136-145 mmol/L Potassium Level 3.5 3.5-5.1 mmol/L Chloride Level 108 H 98-107 mmol/L Carbon Dioxide Level 28 20-31 mmol/L Anion Gap 11 5-15 Blood Urea Nitrogen 13 9-23 mg/dL Creatinine 1.08 0.700-1.30 mg/dL Glomerular Filtration Rate Calc 81 >90 mL/min BUN/Creatinine Ratio 12.0 10.0-20.0 Serum Glucose 130 H 74-106 mg/dL Calcium Level 8.4 L 8.7-10.4 mg/dL SEPSIS Sepsis Screen Date sepsis recognized/suspect: Mar 10, 2025 Time Sepsis recognized/suspect: 2051 Recent Procedure: No On Antibiotic Therapy: No Respiratory Rate >20: No Heart Rate >90: No Temp<36 C (96.8 F) or >38.3 C: No SBP <90 or MAP <65 mmHG: No New Acute Mental Status Change: No Is the patient on CPAP, BIPAP,: No Physician Orders Chest Portable (03/10/25 21:29) Hepatic Panel (03/11/25 01:26) Urinalysis (03/11/25 01:26) Drug Screen (03/11/25:26) B-Type Natriuretic Peptide (03/11/25:26) Phosphorus (03/11/25:) Thyroid Stimulating Hormone (03/11/25:) Vitamin D, 25-Hydroxy (03/11/25:) Vitamin B12 (03/11/25:) Complete Blood Count (03/11/25 04:00) Basic Metabolic Panel (03/11/25 04:00) Admit (03/11/2554) Allergies (03/11/25:54) Code Status (03/11/2554) Enoxaparin Sodium (Lovenox) (03/11/25 10:00) Cardiac Diet-2gna,Lofat,Lochol (03/11/25 Breakfast) Condition: Stable (03/11/25:54) Stat Ekg For Chest Pain (03/11/25:54) Notify Of Changes From Base (03/11/25:54) Bracelet Form Coverer For 24 Hours (03/11/25:54) Emergency Dysrhythmia Protocol (03/11/25:54) Rhythm Strips Once Every Shift (03/11/25:54) Empagliflozin (Jardiance) (03/11/25 02:00) Enalapril Tablet (Vasotec Tablet) (03/11/25 02:00) Spironolactone (Aldactone) (03/11/25 02:00) Atorvastatin (Lipitor) (03/11/25 02:00) Aspirin Tablet (03/11/25 02:00) Furosemide Injection (Lasix Injection) (03/11/25 02:00) Strict I & O QSHIFT (03/11/25 01:58) Maintain Fluid Restrictions QSHIFT (03/11/25 01:58) Vital Signs Date Time Temp Pulse Resp B/P (MAP) Pulse Ox O2 Delivery O2 Flow Rate FiO2 03/10/25 23:19 104 03/10/25 20:57 104 03/10/25 20:49 97.7 63 18 116/80 94 97.7 Laboratory Tests Test 03/10/25 21:32 White Blood Count 8.8 10^3/uL (4.4-10.8) Assessment/Plan Assessment/Plan Assessment and Plan: Acute on chronic HFrEF with exacerbation NSTEMI type 2 Methamphetamine associated cardiomyopathy - Furosemide 40 mg IV b.i.d. - Spironolactone 25 mg p.o. daily - Enalapril 5 mg p.o. daily - Jardiance 10 mg p.o. daily - Atorvastatin 40 mg p.o. HS - Aspirin 81 mg PO daily - Strict Is and Os - Fluid restriction - Cardiac diet - Evaluate need for ischemic workup - Patient noncompliant with medication for over three days. Recommend initiating beta-blockers (carvedilol), once patient fluid overload has resolved. Mild Hypernatremia - Monitor sodium levels Acute Bacterial Conjunctivitis of the Left eye - Erythromycin ophthalmic ointment application q.4 hours Type 2 diabetes mellitus with hyperglycemia, HbA1c 6.5 - Mild SSI - Accu-Cheks Hypertension Methamphetamine use - I have counseled the patient on the importance of complete illicit drug cessation for over 12 minutes. Tobacco use/ Nicotine dependence - Nicotine patches 1 patch daily - I have counseled the patient on the importance of complete smoking cessation for over 14 minutes Obesity, BMI 31.9 kg/m2 - I have counseled the patient on healthy lifestyle modifications Diet: Cardiac DVT prophylaxis: Enoxaparin 40 mg SC daily GI prophylaxis: Not indicated Case discussed with Dr. Boykin Goals of care discussed with the patient for over 28 minutes. FULL CODE. Plan discussed with: Patient, Other (Nurses) My Orders Orders - MUSA ANGELO RESIDENT Procedure Category Date Status Time Hepatic Panel LAB 03/11/25 Logged 01:26 Urinalysis LAB 03/11/25 Logged 01:26 Drug Screen LAB 03/11/25 Logged 01:26 B-Type Natriuretic LAB 03/11/25 Logged Peptide 01:26 Phosphorus LAB 03/11/25 Logged 01:26 Thyroid Stimulating LAB 03/11/25 Logged Hormone 01:26 Vitamin D, 25-Hydroxy LAB 03/11/25 Logged 01:26 Vitamin B12 LAB 03/11/25 Logged 01:26 Complete Blood Count LAB 03/11/25 Logged 04:00 Basic Metabolic Panel LAB 03/11/25 Logged 04:00 Admit ADMIT 03/11/25 Transmitted 01:54 Allergies CORI 03/11/25 In Process 01:54 Code Status CODE 03/11/25 Transmitted 01:54 Enoxaparin Sodium PHA 03/11/25 In Process (Lovenox) 10:00 Cardiac DIET 03/11/25 Transmitted Diet-2gna,Lofat,Lochol Breakfast Condition: Stable [facility] 03/11/25 In Process 01:54 Stat Ekg For Chest [facility] 03/11/25 In Process Pain 01:54 Notify Of Changes [facility] 03/11/25 In Process From Base 01:54 Bracelet Form Coverer For [facility] 03/11/25 In Process 24 Hours 01:54 Emergency Dysrhythmia [facility] 03/11/25 In Process Protocol 01:54 Rhythm Strips Once [facility] 03/11/25 In Process Every Shift 01:54 Empagliflozin [facility] 03/11/25 Logged (Jardiance) 02:00 Enalapril Tablet [facility] 03/11/25 Logged (Vasotec Tablet) 02:00 Spironolactone [facility] 03/11/25 Logged (Aldactone) 02:00 Atorvastatin (Lipitor) [facility] 03/11/25 Logged 02:00 Aspirin Tablet [facility] 03/11/25 Logged 02:00 Furosemide Injection [facility] 03/11/25 Logged (Lasix Injection) 02:00 Strict I & O [facility] 03/11/25 In Process 01:58 Maintain Fluid [facility] 03/11/25 In Process Restrictions 01:58 Date of Service: Mar 11, 2025 Billing Provider: CED BOYKIN MD Common Visit Codes: [id number] INP/OBS CARE (HIGH) Secondary Visit Codes: [id number] CARE PLAN 30 MINUTES MUSA ANGELO RESIDENT Mar 11, 2025 02:09 KAYLEIGH EDOUARD RESIDENT Mar 11, 2025 08:35
[2025-03-11 03:05] VITALS: PULSE 98; RESP 18; O2SAT 98
[2025-03-11] MEDS: CIPROFLOXACIN 0.3%OPTH(EYE) SOL 5ML LEFTEYE ONE (03:14)
[2025-03-11] MEDS: EMPAGLIFLOZIN 10 MG TAB PO SCH (03:18)
[2025-03-11] MEDS: ERYTHROMY OPTH OINT 5mg/gm 1gm or 3.5gm tube OP ONE (03:19)
[2025-03-11] MEDS: NICOTINE 7MG/24HR TOPICAL PATCH TD ONE (03:23)
[2025-03-11 03:29] LABS: Alanine Aminotransferase 33.0 U/L (7-40); Albumin 3.7 g/dL (3.2-4.8); Alkaline Phosphatase 101.0 U/L (46-116); Bilirubin, Direct 0.2 mg/dL (<0.3); Bilirubin, Total 0.6 mg/dL (0.2-1.0)
[2025-03-11 03:32] LABS: Total Protein 5.6 g/dL (5.7-8.2)
[2025-03-11] MEDS: FUROSEMIDE 40 MG/4 ML VIAL IV ONE (03:35)
[2025-03-11] MEDS: SPIRONOLACTONE 25 MG TAB PO SCH (04:54)
[2025-03-11] MEDS ORDERED: DEXTROSE (50%) 50ML SYRG IV PRN (05:30)
[2025-03-11] MEDS: ERYTHROMY OPTH OINT 5mg/gm 1gm or 3.5gm tube OP SCH (06:04)
[2025-03-11 06:47] LABS: Hematocrit 42.4 % (41.0-53.0); Hemoglobin 14.4 g/dL (13.5-17.5); Mean Corpuscular Hemoglobin 31.5 pg (28.0-32.0); Mean Corpuscular Volume 92.9 fL (80.0-100.0); Nucleated Red Blood Cells % 0.0 %
[2025-03-11 07:01] LABS: Chloride 104 mmol/L (98-107); Sodium 144 mmol/L (136-145)
[2025-03-11 07:02] LABS: Anion Gap 11 (5-15); Carbon Dioxide 29 mmol/L (20-31)
[2025-03-11 07:07] LABS: BUN/Creatinine Ratio 13.0 (10.0-20.0); Blood Urea Nitrogen 12 mg/dL (9-23); Calcium 8.3 mg/dL (8.7-10.4); Glucose 103 mg/dL (74-106); Potassium 3.3 mmol/L (3.5-5.1)
[2025-03-11] MEDS: ACCU-CHEK COMFORT CURVE STRIP VI SCH (08:12)
[2025-03-11] MEDS: InsuLIN REG 1unit/0.01ml Soln (100units/ml) SC SCH (08:12)
--- NOTE | 2025-03-11 08:35 | DVH ---
Bilateral lower extremity venous duplex Clinical History: Bilateral lower limb swelling Comparison: None Technique: Duplex Doppler evaluation of the deep venous systems of both lower extremities from the common femora l veins to the popliteal veins including color Doppler and spectral/pulsed waveform analysis was perf ormed. Findings: RIGHT SIDE: The common femoral vein demonstrates appropriate compressibility and waveform variability. There is compressibility/patency of the great saphenous vein at the proximal thigh. The femoral vein demonstrates appropriate compressibility and waveform variability. The deep femoral vein demonstrates appropriate compressibility and waveform variability. The popliteal vein demonstrates appropriate compressibility and waveform variability. There is normal compressibility at the tibioperoneal trunk. LEFT SIDE: The common femoral vein demonstrates appropriate compressibility and waveform variability. There is compressibility/patency of the great saphenous vein at the proximal thigh. The femoral vein demonstrates appropriate compressibility and waveform variability. The deep femoral vein demonstrates appropriate compressibility and waveform variability. The popliteal vein demonstrates appropriate compressibility and waveform variability. There is normal compressibility at the tibioperoneal trunk. Impression: No right or left femoropopliteal venous thrombosis.
[2025-03-11] MEDS: ENOXAPARIN SOD 40 MG/0.4 ML SYRINGE SC SCH (11:55)
[2025-03-11 12:00] VITALS: BP 103/63; PULSE 96; RESP 18; TEMP 98.2; O2SAT 95
[2025-03-11 13:17] VITALS: BP 103/65; PULSE 95; RESP 18; TEMP 98.3; O2SAT 96; O2SAT 98
[2025-03-11 15:00] VITALS: BP 132/93; PULSE 97; RESP 17; TEMP 98.2; O2SAT 98
[2025-03-11 15:06] VITALS: BP 108/72; PULSE 102; RESP 18; TEMP 98.3; O2SAT 96
[2025-03-11] MEDS: FUROSEMIDE 40 MG/4 ML VIAL IV SCH (17:52)
[2025-03-11 17:53] VITALS: BP 114/63; PULSE 63; RESP 18; TEMP 98.8; O2SAT 95
--- NOTE | 2025-03-11 18:13 | DVHPN2 ---
Assessment/Plan Assessment/Plan progress note 54 M with HFrEF, NIDDM, HTN admitted for HF exacerbation. seen today. diuresing. physical exam aox4 comfortable on RA b/l crackles s1 s2 rrr abdomen soft b/l LE edema labs ekg imaging reviewed assessment and plan acute hypoxic RF acute on chronic systolic HF HFrEF w exacerbation type 2 LA meth cardiomyopathy hypernatremia acute bact conjunctivitis NIDDM HTN meth use smoker obesity diurese, goal net -1L daily restart GDMT ISS NRT reinforce abstinence i/o daily weights diet cardiac dvt ppx lovenox full code Plan discussed with: Patient My Orders Orders - CED DONATO MD Procedure Category Date Status Time Furosemide Injection PHA 03/12/25 Verified (Lasix Injection) 10:00 Date of Service: Mar 11, 2025 Billing Provider: CED DONATO MD Common Visit Codes: [id number] INP/OBS CARE(HIGH) CED DONATO MD Mar 11, 2025 18:13
[2025-03-11] MEDS: POTASSIUM CHL 20 Meq TABLET PO ONE (18:56)
[2025-03-11] MEDS: ATORVASTATIN 20 MG TAB PO SCH (23:29)
[2025-03-12] VITALS (7 sets, daily range): BP systolic 114–131; BP diastolic 79–87; PULSE 95–110; RESP 16–22; TEMP 97.9–98.8; O2SAT 94–99
[2025-03-12 06:31] LABS: Hematocrit 42.2 % (41.0-53.0); Hemoglobin 14.2 g/dL (13.5-17.5); Mean Corpuscular Hemoglobin 31.0 pg (28.0-32.0); Mean Corpuscular Volume 92.3 fL (80.0-100.0); Nucleated Red Blood Cells % 0.0 %
[2025-03-12 06:40] LABS: Anion Gap 12 (5-15); Carbon Dioxide 26 mmol/L (20-31); Chloride 104 mmol/L (98-107); Sodium 142 mmol/L (136-145)
[2025-03-12 06:46] LABS: BUN/Creatinine Ratio 15.6 (10.0-20.0); Blood Urea Nitrogen 14 mg/dL (9-23); Magnesium 2.3 mg/dL (1.6-2.6)
[2025-03-12 06:49] LABS: Calcium 8.1 mg/dL (8.7-10.4); Glucose 123 mg/dL (74-106); Potassium 3.4 mmol/L (3.5-5.1)
[2025-03-12] MEDS: FUROSEMIDE 40 MG/4 ML VIAL IV SCH (09:52)
[2025-03-12] MEDS: NICOTINE 7MG/24HR TOPICAL PATCH TD SCH (10:00)
[2025-03-12] MEDS: VORICONAZOLE LEFTEYE SCH (15:00)
[2025-03-12] MEDS: CYCLOPENTOLATE 1% EACHEYE SCH (15:00)
[2025-03-12] MEDS ORDERED: VANCOMYCIN LEFTEYE SCH (15:00)
[2025-03-12] MEDS: VANCOMYCIN LEFTEYE SCH (16:00)
--- NOTE | 2025-03-12 18:46 | DVHPN2 ---
Assessment/Plan Assessment/Plan progress note 54 M with HFrEF, NIDDM, HTN admitted for HF exacerbation. seen today. diuresing. transition to po lasix, dc enalapril. will start entresto at home. start coreg. physical exam aox4 comfortable on RA b/l crackles s1 s2 rrr abdomen soft b/l LE edema labs ekg imaging reviewed assessment and plan acute hypoxic RF acute on chronic systolic HF HFrEF w exacerbation type 2 [place] meth cardiomyopathy hypernatremia acute bact conjunctivitis NIDDM HTN meth use smoker obesity diurese, goal net -1L daily restart GDMT ISS NRT reinforce abstinence i/o daily weights diet cardiac dvt ppx lovenox full code Plan discussed with: Patient My Orders Orders - CED DONATO MD Procedure Category Date Status Time Patients Own PHA 03/12/25 In Process Medication 15:00 Patients Own PHA 03/12/25 In Process Medication 15:00 Patients Own PHA 03/12/25 In Process Medication 16:00 Date of Service: Mar 12, 2025 Billing Provider: CED DONATO MD Common Visit Codes: [id number] INP/OBS CARE(HIGH) CED DONATO MD Mar 12, 2025 18:46
[2025-03-12] MEDS: POTASSIUM EFFERVESENT TAB 25 MEQ PO ONE (20:36)
[2025-03-12] MEDS: CARVEDILOL 3.125 MG TAB PO SCH (22:01)
[2025-03-12] MEDS: ACETAMINOPHEN 325 MG TAB PO ONE (22:52)
[2025-03-13] MEDS ORDERED: FUROSEMIDE 20 MG TAB PO SCH (10:00)
--- NOTE | 2025-03-13 19:01 | DVHDS2 ---
Discharge Summary Date of Admission Mar 11, 2025 at 01:54 Date of Discharge: Mar 13, 2025 Labs/Diagnostic Data: Laboratory Results Test 03/12/25 21:59 03/12/25 05:31 03/11/25 06:12 03/11/25 00:13 POC Glucose 134 mg/dl (70-106) White Blood Count 9.4 10^3/uL (4.4-10.8) Red Blood Count 4.57 10^6/uL (4.5-5.90) Hemoglobin 14.2 g/dL (13.5-17.5) Hematocrit 42.2 % (41.0-53.0) Mean Corpuscular Volume 92.3 fL (80.0-100.0) Mean Corpuscular Hemoglobin 31.0 pg (28.0-32.0) Mean Corpuscular Hemoglobin Concent 33.6 g/dL (32.0-36.0) Red Cell Distribution Width 16.0 % (11.8-14.3) Platelet Count 203 10^3/uL (140-450) Mean Platelet Volume 9.5 fL (6.9-10.8) Neutrophils (%) (Auto) 71.8 % (37.0-80.0) Lymphocytes (%) (Auto) 21.3 % (10.0-50.0) Monocytes (%) (Auto) 6.3 % (0.0-12.0) Eosinophils (%) (Auto) 0.3 % (0.0-7.0) Basophils (%) (Auto) 0.3 % (0.0-2.0) Neutrophils # (Auto) 6.8 10 ^3/uL (1.6-8.6) Lymphocytes # (Auto) 2.0 10 ^3/uL (0.4-5.4) Monocytes # (Auto) 0.6 10 ^3/uL (0-1.3) Eosinophils # (Auto) 0 10 ^3/uL (0-0.8) Basophils # (Auto) 0 10 ^3/uL (0-0.2) Nucleated Red Blood Cells 0.0 % Sodium Level 142 mmol/L (136-145) Potassium Level 3.4 mmol/L (3.5-5.1) Chloride Level 104 mmol/L (98-107) Carbon Dioxide Level 26 mmol/L (20-31) Anion Gap 12 (5-15) Blood Urea Nitrogen 14 mg/dL (9-23) Creatinine 0.90 mg/dL (0.700-1.30) Glomerular Filtration Rate Calc 101 mL/min (>90) BUN/Creatinine Ratio 15.6 (10.0-20.0) Serum Glucose 123 mg/dL (74-106) Calcium Level 8.1 mg/dL (8.7-10.4) Phosphorus Level 3.4 mg/dL (2.4-5.1) Magnesium Level 2.3 mg/dL (1.6-2.6) B-Type Natriuretic Peptide 1453.53 pg/mL (0-100) Vitamin B12 Level 317 pg/mL (211-911) Vitamin D 25-Hydroxy 37.2 ng/mL (30.0-100) Total Bilirubin 0.6 mg/dL (0.2-1.0) Direct Bilirubin 0.2 mg/dL (<0.3) Aspartate Amino Transferase (AST) 27 U/L (13-40) Alanine Aminotransferase (ALT) 33 U/L (7-40) Alkaline Phosphatase 101 U/L (46-116) Troponin I High Sensitivity 71 ng/L (</=54) Total Protein 5.6 g/dL (5.7-8.2) Albumin 3.7 g/dL (3.2-4.8) Thyroid Stimulating Hormone (TSH) 4.22 uIU/mL (0.55-4.78) Other Laboratory Tests 03/12/25 05:31 Brief Hx & Hospital Course: 54 M with HFrEF, NIDDM, HTN admitted for HF exacerbation. bnp elevated, leg swellign, crackles. diuresing. transition to po lasix, dc enalapril. will start entresto at home. start coreg. however patient left AMA w/o meds. Condition at Discharge: Undetermined Final Diagnosis/Problems List acute hypoxic RF acute on chronic systolic HF HFrEF w exacerbation type 2 [place] meth cardiomyopathy hypernatremia acute bact conjunctivitis NIDDM HTN meth use smoker obesity Discharge Disposition: AMA Discharge Instruct/Medications Scheduled Albuterol Sulfate (Albuterol Sulfate), 1 VIAL NEB Q4HPRN, (Reported) Albuterol Sulfate (Ventolin), 2.5 MG NEB Q4HR Azithromycin (Azithromycin), 1 TAB PO DAILY Carvedilol (Coreg), 3.125 MG OR BID Enalapril Maleate (Vasotec), 1 TAB PO DAILY Furosemide (Lasix), 1 TAB PO DAILY Nicotine (Nicotine Transdermal Syst), 14 MG TD DAILY Pantoprazole Sodium Sesquihydr (Protonix), 40 MG PO DAILY Potassium Chloride (Klor-Con 8), 8 MEQ PO DAILY Spironolactone (Spironolactone), 0.5 TAB PO DAILY Scheduled PRN Albuterol Sulfate (Ventolin Mdi), 90 MCG IN Q6HP PRN Albuterol Sulfate (Ventolin Mdi), 180 MCG IN Q6HP PRN Albuterol Sulfate (Ventolin Mdi), 90 MCG IN PRN PRN for SHORTNESS OF BREATH Discharge Statement: "Patient was advised to return to the ER or call 911 if any headaches, dizziness, shortness of breath, chest pain, abdominal pain, bleeding, fevers, or worsening of medical condition. Patient was counseled about treatment plan, medications, possible side effects, patientverbalized understanding. All questions were answered to the best of my ability. This discharge took greater then 30 minutes in planning, reviewing documentation, counseling the patient, and discussing with other team members." ASSESSMENT ASSESSMENT Assessment Date of Service: Mar 13, 2025 Billing Provider: CED DONATO MD Common Visit Codes: [id number]/[id number] DISCH DAY <30MIN CED DONATO MD Mar 13, 2025 19:01
== END 2025-03-12 23:08 | disposition left against medical advice (07) | DRG 133 ==
LOC: ER 20:47 → OVERFLOW 03-11 01:54 → TELE-CENTR 03-11 23:47
PROVIDERS: ATTEND Student in an Organized Health Care Education/Training Program
DX: J96.01 Acute respiratory failure with hypoxia (principal); I50.23 Acute on chronic systolic (congestive) heart failure; E87.0 Hyperosmolality and hypernatremia; I21.A1 Myocardial infarction type 2; I11.0 Hypertensive heart disease with heart failure; E11.65 Type 2 diabetes mellitus with hyperglycemia; F15.90 Other stimulant use, unspecified, uncomplicated; E66.9 Obesity, unspecified; Z68.31 Body mass index [BMI] 31.0-31.9, adult; F17.210 Nicotine dependence, cigarettes, uncomplicated; I42.7 Cardiomyopathy due to drug and external agent; Z53.29 Procedure and treatment not carried out because of patient's decision for other reasons; J45.909 Unspecified asthma, uncomplicated; H10.33 Unspecified acute conjunctivitis, bilateral; Z71.6 Tobacco abuse counseling; Z90.49 Acquired absence of other specified parts of digestive tract; Z79.84 Long term (current) use of oral hypoglycemic drugs; Z91.148 Patient's other noncompliance with medication regimen for other reason; Z88.7 Allergy status to serum and vaccine; Z79.899 Other long term (current) drug therapy
CPT/HCPCS: 36415; 71045; 80048; 80076; 82306; 82607; 82962; 83735; 83880; 84100; 84443; 84484; 85025; 93005; 93970; 96374; 99291; G0378; J1815

== ENCOUNTER 2025-04-06 01:59 | Inpatient (IN) | payer MEDICAID ==
[2025-04-06] VITALS (7 sets, daily range): BP systolic 100–110; BP diastolic 67–81; PULSE 86–113; RESP 16–18; TEMP 97.5–97.9; O2SAT 95–99
[~2025-04-06] VITALS: Ht 170.2 cm; Wt 92.6 kg
--- NOTE | 2025-04-06 02:34 | ED.PDOC ---
SOB-HPI HPI Comments 54 year old male with PMHx CHF, asthma, DM, [place] presents to the ED with a chief complaint of shortness of breath onset 3 days. Patient states he has been experiencing shortness of breath as well as cough for the past 3 days, BLE edema for the past week. Patient states he is complaint with his medication. Denies fever, chills, headache, dizziness, chest pain, nausea, vomiting, diarrhea, numbness/tingling. No other symptoms or modifying factors present at this time. Chief Complaint: Shortness of Breath Time Seen by MD: 02:25 Primary Care Provider: UNKNOWN Reviewed notes: Medications, Allergies Information Source: Patient, Spouse Mode of Arrival: Ambulatory Severity: Moderate Timing: Days Duration: Since onset Context: At Rest PE Risk Factors: None History of: CHF Prehospital treatment: None Modifying Factors: Nothing Associated Signs and Symptoms: Cough Past Medical History PAST MEDICAL HISTORY: Asthma, CHF, DM, [place] Surgical History: Appendectomy Family History Family History: Reviewed,noncontributory to illness Social History Smoker: Less Than 1 Pack/Day Alcohol: Occasionally Drugs: Methamphetamine Lives In: Home Constitutional: denies: chills, diaphoresis, fatigue, fever, malaise, sweats, weakness, others EENTM: denies: blurred vision, double vision, ear bleeding, ear discharge, ear drainage, ear pain, ear ringing, eye pain, eye redness, hearing loss, mouth pain, mouth swelling, nasal discharge, nose bleeding, nose congestion, nose pain, photophobia, tearing, throat pain, throat swelling, voice changes, others Respiratory: reports: cough, shortness of breath; denies: hemoptysis, orthopnea, SOB at rest, SOB with excertion, stridor, wheezing, others Cardiovascular: denies: chest pain, dizzy spells, diaphoresis, Dyspnea on exertion, edema, irregular heart beat, left arm pain, lightheadedness, palpitations, PND, syncope, others Gastrointestinal: denies: abdomen distended, abdominal pain, blood streaked bowels, constipated, diarrhea, dysphagia, difficulty swallowing, hematemesis, melena, nausea, poor appetite, poor fluid intake, rectal bleeding, rectal pain, vomiting, others Genitourinary: denies: burning, dysuria, flank pain, frequency, hematuria, incontinence, penile discharge, penile sore, pain, testicle pain, testicle swelling, urgency, others Neurological: denies: dizziness, fainting, headache, left sided numbness, left sided weakness, numbness, paresthesia, pre-existing deficit, right sided numbness, right sided weakness, seizure, speech problems, tingling, tremors, weakness, others Musculoskeletal: reports: others (BLE edema); denies: back pain, gout, joint pain, joint swelling, muscle pain, muscle stiffness, neck pain Integumetry: denies: bruises, change in color, change in hair/nails, dryness, laceration, lesions, lumps, rash, wounds, others Allergic/Immunocompromised: denies: Difficulty Healing, Frequent Infections, Hi ves, Itching, others Hematologic/Lymphatic: denies: anemia, blood clots, easy bleeding, easy bruising, swollen glands, others Endocrine: denies: excessive hunger, excessive sweating, excessive thirst, excessive urination, flushing, intolerance to cold, intolerance to heat, unexplained weight gain, unexplained weight loss, others Psychiatric: denies: anxiety, bipolar disorder, depression, hopeless, panic disorder, schizophrenia, sleepless, suicidal, others All Other Systems: Reviewed and Negative Physical Exam General Appearance: Normal HEENT: Normal ENT Inspection, Pharynx Normal, TMs Normal Neck: Full Range of Motion, Non-Tender, Normal, Normal Inspection Respiratory: Chest Non-Tender, Lungs Clear, No Accessory Muscle Use, No Respiratory Distress, Normal Breath Sounds Cardiovascular: No Edema, No JVD, No Murmur, No Gallop, Normal Peripheral Pulses, Regular Rate/Rhythm Breast Exam: Deferred Gastrointestinal: No Organomegaly, Non Tender, No Pulsatile Mass, Normal Bowel Sounds, Soft Genitalia: Deferred Pelvic: Deferred Rectal: Deferred Extremities: No calf tenderness, Normal capillary refill, Normal inspection, Normal range of motion, Non-tender, No pedal edema Musculoskeletal : Apperance: Normal Neurologic: Alert, animal care worker II-XII nml as Tested, No Motor Deficits, Normal Affect, Normal Mood, No Sensory Deficits Cerebellar Function: Normal Reflexes: Normal Skin: Dry, Normal Color, Warm Lymphatic: No Adenopathy Was a procedure done? Was a procedure done?: No Differential Dx Differential Diagnosis: Anxiety, Asthma, Bronchitis, Cardiogenic Shock, CHF, COPD, Dysrhythmia, Myocardial infarction, Pneumonia, Pneumothorax, Pulmonary Embolism, Respiratory Distress, Pharyngitis, URI X-Ray, Labs, Meds, VS Vital Signs Date Time Temp Pulse Resp B/P (MAP) Pulse Ox O2 Delivery O2 Flow Rate FiO2 04/06/25 03:04 110/77 04/06/25 02:03 97.3 100 20 110/77 100 97.3 Lab Test 04/06/25 03:38 04/06/25 02:43 Range/Units Troponin I High Sensitivity 62 *H 54 </=54 ng/L White Blood Count 7.5 4.4-10.8 10^3/uL Red Blood Count 4.57 4.5-5.90 10^6/uL Hemoglobin 13.8 13.5-17.5 g/dL Hematocrit 42.6 41.0-53.0 % Mean Corpuscular Volume 93.1 80.0-100.0 fL Mean Corpuscular Hemoglobin 30.2 28.0-32.0 pg Mean Corpuscular Hemoglobin Concent 32.5 32.0-36.0 g/dL Red Cell Distribution Width 14.8 H 11.8-14.3 % Platelet Count 195 140-450 10^3/uL Mean Platelet Volume 9.3 6.9-10.8 fL Neutrophils (%) (Auto) 84.2 H 37.0-80.0 % Lymphocytes (%) (Auto) 12.3 10.0-50.0 % Monocytes (%) (Auto) 3.3 0.0-12.0 % Eosinophils (%) (Auto) 0.1 0.0-7.0 % Basophils (%) (Auto) 0.1 0.0-2.0 % Neutrophils # (Auto) 6.3 1.6-8.6 10 ^3/uL Lymphocytes # (Auto) 0.9 0.4-5.4 10 ^3/uL Monocytes # (Auto) 0.2 0-1.3 10 ^3/uL Eosinophils # (Auto) 0 0-0.8 10 ^3/uL Basophils # (Auto) 0 0-0.2 10 ^3/uL Nucleated Red Blood Cells 0.0 % Sodium Level 144 136-145 mmol/L Potassium Level 4.8 3.5-5.1 mmol/L Chloride Level 111 H 98-107 mmol/L Carbon Dioxide Level 24 20-31 mmol/L Anion Gap 9 5-15 Blood Urea Nitrogen 19 9-23 mg/dL Creatinine 0.86 0.700-1.30 mg/dL Glomerular Filtration Rate Calc 102 >90 mL/min BUN/Creatinine Ratio 22.1 H 10.0-20.0 Serum Glucose 140 H 74-106 mg/dL Calcium Level 8.8 8.7-10.4 mg/dL Total Bilirubin 0.6 0.2-1.0 mg/dL Aspartate Amino Transferase (AST) 22 13-40 U/L Alanine Aminotransferase (ALT) 31 7-40 U/L Alkaline Phosphatase 118 H 46-116 U/L B-Type Natriuretic Peptide 2482.10 0-100 pg/mL Total Protein 5.5 L 5.7-8.2 g/dL Albumin 3.6 3.2-4.8 g/dL Current Medications Medications (Trade) Dose Ordered Sig/Monalisa Route Start Time Stop Time Status Last Admin Furosemide (Lasix Injection) 40 mg ONCE ONCE IV 04/06/25 02:45 04/06/25 02:46 DC 04/06/25 03:04 Time of 1ST Reevaluation: 02:55 Reevaluation 1ST: Unchanged Patient Education/Counseling: Diagnosis, Treatment, Need For Follow Up Family Education/Counseling: Diagnosis, Treatment, Need For Follow Up SEPSIS Sepsis Screen Date sepsis recognized/suspect: Apr 06, 2025 Time Sepsis recognized/suspect: 208 Recent Procedure: No On Antibiotic Therapy: No Respiratory Rate >20: No Heart Rate >90: Yes Temp<36 C (96.8 F) or >38.3 C: No SBP <90 or MAP <65 mmHG: No New Acute Mental Status Change: No Is the patient on CPAP, BIPAP,: No Physician Orders Electrocardigram (04/06/25 02:31) Troponin-I Hs (04/06/25 05:31) Chest Xray 1 View (04/06/25 02:31) Vital Signs Date Time Temp Pulse Resp B/P (MAP) Pulse Ox O2 Delivery O2 Flow Rate FiO2 04/06/25 03:04 110/77 04/06/25 02:03 97.3 100 20 110/77 100 97.3 Laboratory Tests Test 04/06/25 02:43 White Blood Count 7.5 10^3/uL (4.4-10.8) Medications Medications Dose Ordered Sig/Monalisa Route Start Time Stop Time Status Last Admin Dose Admin Furosemide 40 mg ONCE ONCE IV 04/06/25 02:45 04/06/25 02:46 DC 04/06/25 03:04 Departure 1 Departure Time of Disposition: 04:32 Impression: Primary Impression: CHF (congestive heart failure) Additional Impression: Amphetamine abuse Disposition: ADMITTED INPATIENT Admit to: Tele Condition: Guarded Discharged With: Self Comments 54-year-old male with a history of CHF and amphetamine abuse now with swollen legs and shortness of breath when he lays down. Chest x-ray shows cardiomegaly. His BNP is high. Troponin initially was normal but then increased in the abnor mal range. Patient was given aspirin and Lasix. Patient will need to be admitted for supportive care and further workup. Critical Care Note Critical Care Time?: Yes (35 min-critical care time only) Critical care comment: Total critical care time: Approximately 36 minutes Due to a high probability of clinically significant, life threatening deterioration, the patient required my highest level of preparedness to intervene emergently and I personally spent this critical care time directly and personally managing the patient. This critical care time included obtaining a history; examining the patient; pulse oximetry; ordering and review of studies; arranging urgent treatment with development of a management plan; evaluation of patient's response to treatment; frequent reassessment; and, discussions with other providers. This critical care time was performed to assess and manage the high probability of imminent, life-threatening deterioration that could result in multi-organ failure. It was exclusive of separately billable procedures and treating other patients. Stability Stability form required: No Heart Score Heart Score: Heart Score Response (Comments) Value History Moderate Suspicious 1 EKG Repolarization Disturb 1 Age 45-64 1 Risk Factors >3 or Hx ASHD 2 Troponin 1-2 x's Normal limit 1 Total 6 I personally scribed for NATASHA SZYMANSKI MD ([email or web address]) on 04/06/25 at 02:34. Electronically submitted by Hannah hCa ([email or web address]). NATASHA SZYMANSKI MD Apr 06, 2025 02:34
[2025-04-06] MEDS: FUROSEMIDE 40 MG/4 ML VIAL IV ONE ×2 (03:04→12:09)
[2025-04-06 03:09] LABS: Alanine Aminotransferase 31 U/L (7-40); Anion Gap 9 (5-15); BUN/Creatinine Ratio 22.1 (10.0-20.0); Blood Urea Nitrogen 19 mg/dL (9-23); Calcium 8.8 mg/dL (8.7-10.4); Carbon Dioxide 24 mmol/L (20-31); Potassium 4.8 mmol/L (3.5-5.1); Sodium 144 mmol/L (136-145)
[2025-04-06 03:10] LABS: Albumin 3.6 g/dL (3.2-4.8); Bilirubin, Total 0.6 mg/dL (0.2-1.0)
[2025-04-06 03:13] LABS: Alkaline Phosphatase 118 U/L (46-116); Chloride 111 mmol/L (98-107); Glucose 140 mg/dL (74-106); Total Protein 5.5 g/dL (5.7-8.2)
[2025-04-06 03:14] LABS: Hematocrit 42.6 % (41.0-53.0); Hemoglobin 13.8 g/dL (13.5-17.5); Mean Corpuscular Hemoglobin 30.2 pg (28.0-32.0); Mean Corpuscular Volume 93.1 fL (80.0-100.0); Nucleated Red Blood Cells % 0.0 %
--- NOTE | 2025-04-06 03:16 | DVH ---
CHEST RADIOGRAPH Indication: SOB Technique: Single frontal view of the chest was obtained COMPARISON: XY CHEST PORTABLE on DOS: 03/10/25, XY CHEST PORTABLE on DOS: 01/20/25, XY CHEST XRAY 1 VIEW on DOS: 01/18/25, XY CHEST PORTABLE on DOS: 01/27/23, XY CHEST PORTABLE on DOS: 09/01/22 FINDINGS: Lines and Tubes: None Lungs: Clear Pleura: No effusion. No pneumothorax. Cardiomediastinal contours: Cardiomegaly. Bones: Unremarkable IMPRESSION: 1. Cardiomegaly.
[2025-04-06] MEDS ORDERED: NITROGLYCERIN 0.4 MG SL TAB SL PRN (08:30)
[2025-04-06] MEDS ORDERED: HYDROcodone-ACET 5/325MG TAB PO PRN (08:30)
[2025-04-06] MEDS ORDERED: ALBUTEROL SULF 2.5 MG/0.5ML(0.5%) NEB SOLN NEB PRN (08:30)
[2025-04-06] MEDS ORDERED: DEXTROSE (50%) 50ML SYRG IV PRN (08:30)
[2025-04-06] MEDS ORDERED: ONDANSETRON HCL 4 MG/2 ML VIAL IV PRN (08:30)
[2025-04-06] MEDS ORDERED: MORPHINE SULFATE INJ 2 MG/ml SYRG IV PRN (08:30)
[2025-04-06] MEDS ORDERED: ACETAMINOPHEN 325 MG TAB PO PRN (08:30)
[2025-04-06] MEDS ORDERED: IPRATROPIUM BROM 0.5 MG/2.5ML INH SOL NEB PRN (08:30)
[2025-04-06] MEDS ORDERED: ATOR40TA52 (09:03)
[2025-04-06] MEDS ORDERED: ASPI1CHW5 PO (09:03)
[2025-04-06] MEDS ORDERED: EMPA1TAB PO (09:24)
--- NOTE | 2025-04-06 09:31 | DVHHP2 ---
History of Present Illness Reason for Visit: SOB History of Present Illness Chang Lopez is a 54-year-old male with past medical history of asthma, CHF, diabetes, [place], appendectomy, tobacco use, meth use, alcohol use, and left knee surgery who presents to the ED with shortness of breath that began 3 days ago, also reports bilateral lower extremity edema for 1 week, and left lower extremity pain 7/10 pressure-like and constant. He reports that there are no triggering or alleviating factors for his lower extremity pain. He reports that he does ambulate without any DMEs however his spouse at chair side is requesting for a cane. Patient reports that he drinks alcohol occasionally, smokes cigarettes less than half a pack, and uses meth daily. Patient also reports that he has not seen a primary care physician the last 2 months but did see one at [facility]. Patient's spouse Itzel reports that he has been taking his water pill and a has not been working. Patient denies any recent trauma or injury, recent sick contacts, recent travels, recent ingestion of spoiled food, chest pain, fever, chills, lightheadedness, weakness, dizziness, abdominal pain, nausea, vomiting, diarrhea, or urinary symptoms. Cardiovascular: CHF, [place] Pulmonary: Asthma Endocrine: Diabetes Past Surgical History: Appendectomy, Other (Left knee surgery) Family History: Other (Mom with unknown cancer. Dad with ME. ) Smoke: <1 pack per day ALCOHOL: occassional Drugs: Other (Meth) Lives: with Family Domestic Violence: Neg Review of Systems Respiratory: Shortness of breath Allergies: Coded Allergies: No Known Drug Allergy (Verified Allergy, Unknown, 09/01/22) Uncoded Allergies: COVID VACCINE (Allergy, Unknown, 06/13/22) Medications Current Medications Medications Dose Ordered Sig/Monalisa Route Start Time Stop Time Status Last Admin Dose Admin Albuterol 2.5 mg Q4HPRN PRN NEB 04/06/25 08:30 Ipratropium [place] 0.5 mg Q4HPRN PRN NEB 04/06/25 08:30 Acetaminophen/ Hydrocodone Bitart 1 tab Q4HP PRN PO 04/06/25 08:30 Ondansetron HCl 4 mg Q4HP PRN IV 04/06/25 08:30 Enoxaparin Sodium 40 mg DAILY SC 04/06/25 10:00 Acetaminophen 650 mg Q6HP PRN PO 04/06/25 08:30 Nitroglycerin 0.4 mg Q5MINP PRN SL 04/06/25 08:30 Morphine Sulfate 2 mg Q30M PRN IV 04/06/25 08:30 Diagnostic Test (Pha) 1 strip ACHS 04/06/25 11:30 Insulin Human Regular ACHS SC 04/06/25 11:30 Dextrose 50 ml UD PRN IV 04/06/25 08:30 Carvedilol 3.125 mg BID PO 04/06/25 10:00 Nicotine 1 patch DAILY TD 04/06/25 10:00 Pantoprazole Sodium 40 mg DAILY PO 04/06/25 10:00 Patient Own Medication 1 tab DAILY PO 04/06/25 10:00 UNV Patient Own Medication 1 tab DAILY PO 04/06/25 10:00 UNV Atorvastatin Calcium 40 mg HS PO 04/06/25 22:00 Exam Vital Signs Vital Signs Date Time Temp Pulse Resp B/P (MAP) Pulse Ox O2 Delivery O2 Flow Rate FiO2 04/06/25 06:26 101 04/06/25 04:51 97.5 16 110/79 (89) 100 97.5 General Appearance: Alert, Oriented X3, Cooperative, No acute distress HEENT: Atraumatic, PERRLA, EOMI Respiratory: Normal air movement Cardiovascular: Regular rate, Normal S1, Normal S2 Abdominal: Normal bowel sounds, Soft Extremities: Normal pulses Skin: No significant lesion Neuro: Normal gait, Normal speech, Strength at 5/5 X4 ext, Normal tone, Sensation intact Psych/Mental Status: Mental status NL, Mood NL Labs/Xrays Labs Test 04/06/25 05:41 04/06/25 02:43 Range/Units Troponin I High Sensitivity 59 *H </=54 ng/L White Blood Count 7.5 4.4-10.8 10^3/uL Red Blood Count 4.57 4.5-5.90 10^6/uL Hemoglobin 13.8 13.5-17.5 g/dL Hematocrit 42.6 41.0-53.0 % Mean Corpuscular Volume 93.1 80.0-100.0 fL Mean Corpuscular Hemoglobin 30.2 28.0-32.0 pg Mean Corpuscular Hemoglobin Concent 32.5 32.0-36.0 g/dL Red Cell Distribution Width 14.8 H 11.8-14.3 % Platelet Count 195 140-450 10^3/uL Mean Platelet Volume 9.3 6.9-10.8 fL Neutrophils (%) (Auto) 84.2 H 37.0-80.0 % Lymphocytes (%) (Auto) 12.3 10.0-50.0 % Monocytes (%) (Auto) 3.3 0.0-12.0 % Eosinophils (%) (Auto) 0.1 0.0-7.0 % Basophils (%) (Auto) 0.1 0.0-2.0 % Neutrophils # (Auto) 6.3 1.6-8.6 10 ^3/uL Lymphocytes # (Auto) 0.9 0.4-5.4 10 ^3/uL Monocytes # (Auto) 0.2 0-1.3 10 ^3/uL Eosinophils # (Auto) 0 0-0.8 10 ^3/uL Basophils # (Auto) 0 0-0.2 10 ^3/uL Nucleated Red Blood Cells 0.0 % Sodium Level 144 136-145 mmol/L Potassium Level 4.8 3.5-5.1 mmol/L Chloride Level 111 H 98-107 mmol/L Carbon Dioxide Level 24 20-31 mmol/L Anion Gap 9 5-15 Blood Urea Nitrogen 19 9-23 mg/dL Creatinine 0.86 0.700-1.30 mg/dL Glomerular Filtration Rate Calc 102 >90 mL/min BUN/Creatinine Ratio 22.1 H 10.0-20.0 Serum Glucose 140 H 74-106 mg/dL Calcium Level 8.8 8.7-10.4 mg/dL Total Bilirubin 0.6 0.2-1.0 mg/dL Aspartate Amino Transferase (AST) 22 13-40 U/L Alanine Aminotransferase (ALT) 31 7-40 U/L Alkaline Phosphatase 118 H 46-116 U/L B-Type Natriuretic Peptide 2482.10 0-100 pg/mL Total Protein 5.5 L 5.7-8.2 g/dL Albumin 3.6 3.2-4.8 g/dL CHEST RADIOGRAPH Indication: SOB Technique: Single frontal view of the chest was obtained COMPARISON: XY CHEST PORTABLE on DOS: 03/10/25, XY CHEST PORTABLE on DOS: 01/20/25, XY CHEST XRAY 1 VIEW on DOS: 01/18/25, XY CHEST PORTABLE on DOS: 01/27/23, XY CHEST PORTABLE on DOS: 09/01/22 FINDINGS: Lines and Tubes: None Lungs: Clear Pleura: No effusion. No pneumothorax. Cardiomediastinal contours: Cardiomegaly. Bones: Unremarkable IMPRESSION: 1. Cardiomegaly. SEPSIS Sepsis Screen Date sepsis recognized/suspect: Apr 06, 2025 Time Sepsis recognized/suspect: 208 Recent Procedure: No On Antibiotic Therapy: No Respiratory Rate >20: No Heart Rate >90: Yes Temp<36 C (96.8 F) or >38.3 C: No SBP <90 or MAP <65 mmHG: No New Acute Mental Status Change: No Is the patient on CPAP, BIPAP,: No Physician Orders Electrocardigram (04/06/25 02:31) Chest Xray 1 View (04/06/25 02:31) Albuterol Medneb (Ventolin Medneb) (04/06/25 08:30) Ipratropium Medneb (Atrovent Medneb) (04/06/25 08:30) Admit (04/06/25 08:17) Allergies (04/06/25 08:17) Hydrocodone-Acet 5/325mg Tab ([place] 5/32 (04/06/25 08:30) Ondansetron Hcl (Zofran) (04/06/25 08:30) Enoxaparin Sodium (Lovenox) (04/06/25 10:00) Complete Blood Count (04/07/25 04:00) Comprehensive Metabolic Panel (04/07/25 04:00) Cardiac Diet-2gna,Lofat,Lochol (04/06/25 Breakfast) Echo 2d Mode Cardiac Dop (04/06/25 08:17) Acetaminophen Tablet (Tylenol Tablet) (04/06/25 08:30) Sequential Compression Device (04/06/25 ) Nitroglycerin Sublingual (Ntrostat Subli (04/06/25 08:30) Morphine Sulfate Injection (04/06/25 08:30) Stat Ekg For Chest Pain (04/06/25 08:17) Notify Of Changes From Base (04/06/25 08:17) Meal Grinder Tender For 24 Hours (04/06/25 08:17) Emergency Dysrhythmia Protocol (04/06/25 08:17) Rhythm Strips Once Every Shift (04/06/25 08:17) Oxygen By Nasal Cannula (04/06/25 08:17) Glucose Blood (Accu-Chek Comfort Curve T (04/06/25 11:30) Insulin R (Human) (Insulin R) (04/06/25 11:30) Dextrose 50% Syringe (04/06/25 08:30) Hemoglobin A1c (04/06/25 08:17) Bilat Lower Dvt (04/06/25 08:17) Carvedilol Tablet (Coreg Tablet) (04/06/25 10:00) Nicotine 14mg/24hr (Nicoderm 14mg/24hr) (04/06/25 10:00) Pantoprazole Tablet (Protonix Tablet) (04/06/25 10:00) (Nf) Enalapril Maleate (Vasotec) (04/06/25 10:00) (Nf) Aspirin (Chewable Aspirin) (04/06/25 10:00) Atorvastatin (Lipitor) (04/06/25 22:00) Vital Signs Date Time Temp Pulse Resp B/P (MAP) Pulse Ox O2 Delivery O2 Flow Rate FiO2 04/06/25 06:26 101 04/06/25 04:51 97.5 100 16 110/79 (89) 100 97.5 04/06/25 03:04 110/77 04/06/25 02:03 97.3 100 20 110/77 100 97.3 Laboratory Tests Test 04/06/25 02:43 White Blood Count 7.5 10^3/uL (4.4-10.8) Medications Medications Dose Ordered Sig/Monalisa Route Start Time Stop Time Status Last Admin Dose Admin Aspirin 162 mg ONCE ONCE PO 04/06/25 04:45 04/06/25 04:46 DC 04/06/25 08:37 162 MG Furosemide 40 mg ONCE ONCE IV 04/06/25 02:45 04/06/25 02:46 DC 04/06/25 03:04 40 MG Assessment/Plan Assessment/Plan Assessment Acute on chronic CHF exacerbation Acute hypoxic respiratory failure and supportive oxygen Acute asthma exacerbation likely due to tobacco and meth use Left lower extremity pain rule out DVT Alcohol use HFrEF, 15-20% History of diabetes History of [place] History of appendectomy History of left knee surgery Plan Admit to med surge Antiemetics Pain management Duo amber [place] Strict I&Os Daily weight Aspirin + statin Echo ordered Last echo on 01/18/2025 EF 15-20% Hemoglobin A1c ISS and Accu-Cheks BNP Supplemental oxygen GDMT Diet Home medications reconciled DVT prophylaxis-Lovenox PUD prophylaxis-PPIs Discussed plan of care with patient, patient's spouse, and nurse Counseled patient on cessation of tobacco, alcohol, and meth use [id number] Behavior change smoking greater than 10 minutes about use of other options also gave option of nicotine patch [id number] Preventive counseling healthy eating habits, physical activity, and regular checkups Plan discussed with: Patient, Spouse My Orders Orders - ALEJANDRA STEWART EDITOR IN CHIEF NEWSPAPER Procedure Category Date Status Time Albuterol Medneb PHA 04/06/25 In Process (Ventolin Medneb) 08:30 Ipratropium [place] PHA 04/06/25 In Process (Atrovent Medneb) 08:30 Admit ADMIT 04/06/25 Transmitted 08:17 Allergies CORI 04/06/25 In Process 08:17 Hydrocodone-Acet PHA 04/06/25 In Process 5/325mg Tab ([place] 08:30 Ondansetron Hcl PHA 04/06/25 In Process (Zofran) 08:30 Enoxaparin Sodium PHA 04/06/25 In Process (Lovenox) 10:00 Complete Blood Count LAB 04/07/25 Verified 04:00 Comprehensive LAB 04/07/25 Verified Metabolic Panel 04:00 Cardiac DIET 04/06/25 Transmitted Diet-2gna,Lofat,Lochol Breakfast Echo 2d Mode Cardiac US 04/06/25 Logged DOP 08:17 Acetaminophen Tablet PHA 04/06/25 In Process (Tylenol Tablet) 08:30 Sequential CORI 04/06/25 In Process Compression Device Nitroglycerin PHA 04/06/25 In Process Sublingual (Ntrostat 08:30 Morphine Sulfate PHA 04/06/25 In Process Injection 08:30 Stat Ekg For Chest CORI 04/06/25 In Process Pain 08:17 Notify Of Changes CORI 04/06/25 In Process From Base 08:17 Meal Grinder Tender For CORI 04/06/25 In Process 24 Hours 08:17 Emergency Dysrhythmia CORI 04/06/25 In Process Protocol 08:17 Rhythm Strips Once CORI 04/06/25 In Process Every Shift 08:17 Oxygen By Nasal RT 04/06/25 Transmitted Cannula 08:17 Glucose Blood PHA 04/06/25 In Process (Accu-Chek Comfort 11:30 Insulin R (Human) PHA 04/06/25 In Process (Insulin R) 11:30 Dextrose 50% Syringe PHA 04/06/25 In Process 08:30 Hemoglobin A1c LAB 04/06/25 In Process 08:17 Bilat Lower Dvt US 04/06/25 Logged 08:17 Carvedilol Tablet PHA 04/06/25 In Process (Coreg Tablet) 10:00 Nicotine 14mg/24hr PHA 04/06/25 In Process (Nicoderm 14mg/24hr) 10:00 Pantoprazole Tablet PHA 04/06/25 In Process (Protonix Tablet) 10:00 (Nf) Enalapril PHA 04/06/25 Logged Maleate (Vasotec) 10:00 (Nf) Aspirin PHA 04/06/25 Logged (Chewable Aspirin) 10:00 Atorvastatin (Lipitor) PHA 04/06/25 In Process 22:00 Date of Service: Apr 06, 2025 Billing Provider: ALEJANDRA STEWART Common Visit Codes: [id number] INP/OBS CARE (HIGH) Secondary Visit Codes: [id number] COUNSELING IND, 52028-DUYIN CHNG SMOKING >10MIN ALEJANDRA STEWART Apr 06, 2025 09:31
--- NOTE | 2025-04-06 10:56 | DVH ---
Bilateral lower extremity venous duplex Clinical History: pain Comparison: US BILAT LOWER DVT on DOS: 03/11/25, ABPLIV on DOS: 06/13/22, TESUS on DOS: 06/13/22 Technique: Duplex Doppler evaluation of the deep venous systems of both lower extremities from the common femoral veins to the popliteal veins including color Doppler and spectral/pulsed waveform analysis was performed. Findings: RIGHT SIDE: The common femoral vein demonstrates appropriate compressibility and waveform variability. There is compressibility/patency of the great saphenous vein at the proximal thigh. The femoral vein demonstrates appropriate compressibility and waveform variability. The deep femoral vein demonstrates appropriate compressibility and waveform variability. The popliteal vein demonstrates appropriate compressibility and waveform variability. There is normal compressibility at the tibioperoneal trunk. LEFT SIDE: The common femoral vein demonstrates appropriate compressibility and waveform variability. There is compressibility/patency of the great saphenous vein at the proximal thigh. The femoral vein demonstrates appropriate compressibility and waveform variability. The deep femoral vein demonstrates appropriate compressibility and waveform variability. The popliteal vein demonstrates appropriate compressibility and waveform variability. There is normal compressibility at the tibioperoneal trunk. Impression: No right or left femoropopliteal venous thrombosis.
--- NOTE | 2025-04-06 11:23 | ECG ---
[facility] Test Date: 2025-04-06 Test Time: 06:26:18 Pat Name: MICKEY YUAN Department: Room: 0284 A Gender: M Compensation Administrator: LEEANN : 1970 Requested By: NATASHA SZYMANSKI Order Number: [id number] Reading MD: Jaxon Monroy Measurements Intervals [place] Rate: 101 P: 56 VT: 149 QRS: 52 QRSD: 92 T: 102 QT: 344 QTc: 446 Interpretive Statements Sinus tachycardia Probable left atrial enlargement Borderline repolarization abnormality Electronically Signed On 04-10-2025 10:52:19 PST by Jaxon Monroy Please click the below link to view image of tracing.
[2025-04-06] MEDS: NICOTINE 14 MG/24HR TOPICAL PATCH TD SCH (12:03)
[2025-04-06] MEDS: ACCU-CHEK COMFORT CURVE STRIP VI SCH (12:06)
[2025-04-06] MEDS: ENALAPRIL MALEATE 2.5 MG TAB PO SCH (12:08)
[2025-04-06] MEDS: SPIRONOLACTONE 25 MG TAB PO SCH (12:08)
[2025-04-06] MEDS: PANTOPRAZOLE 40 MG TAB PO SCH (12:08)
[2025-04-06] MEDS: CARVEDILOL 3.125 MG TAB PO SCH (12:09)
[2025-04-06] MEDS: ENOXAPARIN SOD 40 MG/0.4 ML SYRINGE SC SCH (12:09)
[2025-04-06] MEDS: InsuLIN REG 1unit/0.01ml Soln (100units/ml) SC SCH (12:23)
[2025-04-06] MEDS: ATORVASTATIN 20 MG TAB PO SCH (21:08)
[2025-04-07] VITALS (9 sets, daily range): BP systolic 104–125; BP diastolic 65–83; PULSE 92–100; RESP 17–20; TEMP 97.7–98.4; O2SAT 92–97
[2025-04-07 08:13] LABS: Hematocrit 41.2 % (41.0-53.0); Hemoglobin 13.7 g/dL (13.5-17.5); Mean Corpuscular Hemoglobin 30.4 pg (28.0-32.0); Mean Corpuscular Volume 91.5 fL (80.0-100.0); Nucleated Red Blood Cells % 0.0 %
[2025-04-07 08:25] LABS: Alanine Aminotransferase 29 U/L (7-40); Albumin 3.4 g/dL (3.2-4.8); Alkaline Phosphatase 104 U/L (46-116); Anion Gap 10 (5-15); BUN/Creatinine Ratio 19.0 (10.0-20.0); Bilirubin, Total 0.9 mg/dL (0.2-1.0); Blood Urea Nitrogen 20 mg/dL (9-23); Carbon Dioxide 26 mmol/L (20-31); Chloride 106 mmol/L (98-107); Potassium 4.1 mmol/L (3.5-5.1); Sodium 142 mmol/L (136-145)
[2025-04-07 08:26] LABS: Calcium 8.2 mg/dL (8.7-10.4); Glucose 186 mg/dL (74-106); Total Protein 5.2 g/dL (5.7-8.2)
[2025-04-07 08:57] LABS: Urine Protein, UAD Negative (Negative)
[2025-04-07 09:04] LABS: Amphetamine Screen, Urine Pos (NEGATIVE); Barbiturate Scree,Urine Neg (NEGATIVE); Benzodiazephine Screen, Urine Neg (NEGATIVE); Cannabinoid Screen, Urine Neg (NEGATIVE); Cocaine Screen, Urine Neg (NEGATIVE); Opiate Scree,Urine Neg (NEGATIVE); Phencyclidine Screen, Urine Neg (NEGATIVE)
[2025-04-07] MEDS: FUROSEMIDE 40 MG/4 ML VIAL IV SCH (15:42)
--- NOTE | 2025-04-07 17:23 | DVHPN2 ---
Reviewed: H&P Changes from previous H/P or p: No Changes General: Per HPI Respiratory: Shortness of breath Objective Vitals Vital Signs Date Time Temp Pulse Resp B/P (MAP) Pulse Ox O2 Delivery O2 Flow Rate FiO2 04/07/25 16:36 98.4 99 17 125/65 (85) 95 98.4 04/07/25 15:45 Room Air 0.0 04/07/25 15:45 21 Intake/Output Intake and Output 04/07/25 07:00 Intake Total 1160 ml Balance 1160 ml Intake Oral 1160 ml # Voids 6 Exam GEN: Healthy appearing, well-developed, NAD. HEENT: NC/AT; MMM. CV: RRR, no m/r/g. LUNGS: CTAB, no w/r/c. ABD: Soft, NT/ND, NBS, no masses or organomegaly. EXT: skin Warm, well perfused. no rashes. No clubbing, cyanosis, or edema. P itting edema bilaterally 1 to 2+ up to shins lower extremities NEURO: Ambulating with no limitations. No focal deficits. Medications Current Medications Medications Dose Ordered Sig/Monalisa Route Start Time Stop Time Status Last Admin Dose Admin Albuterol 2.5 mg Q4HPRN PRN NEB 04/06/25 08:30 Ipratropium [place] 0.5 mg Q4HPRN PRN NEB 04/06/25 08:30 Acetaminophen/ Hydrocodone Bitart 1 tab Q4HP PRN PO 04/06/25 08:30 Ondansetron HCl 4 mg Q4HP PRN IV 04/06/25 08:30 Enoxaparin Sodium 40 mg DAILY SC 04/06/25 10:00 04/07/25 10:35 40 MG Acetaminophen 650 mg Q6HP PRN PO 04/06/25 08:30 Nitroglycerin 0.4 mg Q5MINP PRN SL 04/06/25 08:30 Morphine Sulfate 2 mg Q30M PRN IV 04/06/25 08:30 Diagnostic Test (Pha) 1 strip ACHS 04/06/25 11:30 04/07/25 17:06 1 STRIP Insulin Human Regular ACHS SC 04/06/25 11:30 04/06/25 21:09 3 UNITS Dextrose 50 ml UD PRN IV 04/06/25 08:30 Carvedilol 3.125 mg BID PO 04/06/25 10:00 04/07/25 10:36 3.125 MG Nicotine 1 patch DAILY TD 04/06/25 10:00 Pantoprazole Sodium 40 mg DAILY PO 04/06/25 10:00 04/07/25 10:37 40 MG Enalapril Maleate 5 mg DAILY PO 04/06/25 10:00 04/06/25 12:08 5 MG Aspirin 81 mg DAILY PO 04/06/25 10:00 04/07/25 10:37 81 MG Atorvastatin Calcium 40 mg HS PO 04/06/25 22:00 04/06/25 21:08 40 MG Spironolactone 12.5 mg DAILY PO 04/06/25 10:00 04/07/25 10:38 12.5 MG Furosemide 40 mg DAILY IV 04/07/25 14:45 04/07/25 15:42 40 MG Laboratory Results Laboratory Tests 04/07/25 07:43 Chemistry Test 04/07/25 07:43 Albumin 3.4 g/dL (3.2-4.8) Calcium Level 8.2 mg/dL (8.7-10.4) L Total Protein 5.2 g/dL (5.7-8.2) L LFT Test 04/07/25 07:43 Alanine Aminotransferase (ALT) 29 U/L (7-40) Alkaline Phosphatase 104 U/L (46-116) Aspartate Amino Transferase (AST) 26 U/L (13-40) Total Bilirubin 0.9 mg/dL (0.2-1.0) Urinalysis Test 04/07/25 05:55 Urine Color Light-yellow (Yellow) Urine Clarity Clear (Clear) Urine pH 5.5 (5.0-9.0) Urine Specific [place] 1.013 (1.001-1.035) Urine Protein Negative (Negative) Urine Ketones Negative (Negative) Urine Blood Negative /uL (Negative) Urine Nitrite Negative (Negative) Urine Bilirubin Negative (Negative) Urine Urobilinogen Normal mg/dL (Negative) Urine Leukocyte Esterase Trace /uL (Negative) Urine RBC <1 /hpf (0 - 3) Urine Microscopic WBC 1 /HPF (0-3) Urine Squamous Epithelial Cells Few /hpf (<5) Urine Bacteria None seen /hpf (None Seen) Urine Glucose Trace mg/dL (Normal) Microbiology Microbiology Date/Time Source Procedure Growth Status 04/06/25 12:27 Nose MRSA Screen - Final Complete Labs and/or images reviewed: Labs reviewed by me, Image(s) reviewed by me Assessment/Plan Assessment/Plan 54-year-old male with past medical history of asthma, CHF, diabetes, [place], appendectomy, tobacco use, meth use, alcohol use, and left knee surgery who presents to the ED with shortness of breath that began 3 days ago, also reports bilateral lower extremity edema for 1 week, and left lower extremity pain 7/10 pressure-like and constant. He reports that there are no triggering or alleviating factors for his lower extremity pain. He reports that he does ambulate without any DMEs however his spouse at chair side is requesting for a cane. Patient reports that he drinks alcohol occasionally, smokes cigarettes less than half a pack, and uses meth daily. Patient also reports that he has not seen a primary care physician the last 2 months but did see one at [facility]. Patient's spouse Itzel reports that he has been taking his water pill and a has not been working. 04/07: Patient here with noncompliance of home meds for 1 week, now in CHF exacerbation. No longer on oxygen. We will continue IV Lasix 20 IV b.i.d.. Continue other home medications for HFrEF. Continue GDM T. patient consult on importance of taking home meds. Diagnosis: Acute on chronic CHF exacerbation Acute hypoxic respiratory failure and supportive oxygen Acute asthma exacerbation likely due to tobacco and meth use Left lower extremity pain rule out DVT Alcohol use HFrEF, 15-20% History of diabetes History of [place] History of appendectomy History of left knee surgery Plan : Admit to med surge Antiemetics Pain management Duo nebs Dicje Lasix 20 IV b.i.d. Strict I&Os Daily weight Aspirin + statin Echo ordered Last echo on 01/18/2025 EF 15-20% Hemoglobin A1c ISS and Accu-Cheks BNP Supplemental oxygen GDMT Diet Home medications reconciled DVT prophylaxis-Lovenox PUD prophylaxis-PPIs Counseled patient on cessation of tobacco, alcohol, and meth use Plan discussed with: Patient My Orders Orders - LUCAS MANDEL MD Procedure Category Date Status Time Furosemide Injection PHA 04/07/25 In Process (Lasix Injection) 14:45 Date of Service: Apr 07, 2025 Billing Provider: LUCAS MANDEL MD Common Visit Codes: [id number] INP/OBS CARE(HIGH) LUCAS MANDEL MD Apr 07, 2025 17:23
[2025-04-08 01:00] VITALS: BP 118/78; PULSE 88; RESP 22; TEMP 98.7; O2SAT 98
[2025-04-08 05:00] VITALS: BP 120/86; PULSE 96; RESP 19; TEMP 98.2; O2SAT 98
[2025-04-08 07:26] LABS: Hematocrit 41.7 % (41.0-53.0); Hemoglobin 14.2 g/dL (13.5-17.5); Mean Corpuscular Hemoglobin 30.9 pg (28.0-32.0); Mean Corpuscular Volume 90.8 fL (80.0-100.0); Nucleated Red Blood Cells % 0.1 %
[2025-04-08 07:45] LABS: Alanine Aminotransferase 25 U/L (7-40); Albumin 3.5 g/dL (3.2-4.8); Alkaline Phosphatase 103 U/L (46-116); Anion Gap 11 (5-15); BUN/Creatinine Ratio 23.5 (10.0-20.0); Blood Urea Nitrogen 20 mg/dL (9-23); Carbon Dioxide 26 mmol/L (20-31); Chloride 106 mmol/L (98-107); Potassium 4.0 mmol/L (3.5-5.1); Sodium 143 mmol/L (136-145)
[2025-04-08 07:46] LABS: Bilirubin, Total 1.0 mg/dL (0.2-1.0); Calcium 8.5 mg/dL (8.7-10.4); Glucose 116 mg/dL (74-106); Total Protein 5.4 g/dL (5.7-8.2)
[2025-04-08 09:00] VITALS: BP 117/81; PULSE 106; RESP 18; TEMP 97.3; O2SAT 98
[2025-04-08 10:00] VITALS: O2SAT 98
[2025-04-08 10:15] VITALS: O2SAT 96
--- NOTE | 2025-04-08 10:33 | DVHDS2 ---
Discharge Summary Date of Admission Apr 06, 2025 at 08:17 Date of Discharge: Apr 08, 2025 Labs/Diagnostic Data: Laboratory Results Test 04/08/25 06:18 04/08/25 06:16 04/07/25 05:55 04/06/25 05:41 POC Glucose 137 mg/dl (70-106) White Blood Count 8.7 10^3/uL (4.4-10.8) Red Blood Count 4.59 10^6/uL (4.5-5.90) Hemoglobin 14.2 g/dL (13.5-17.5) Hematocrit 41.7 % (41.0-53.0) Mean Corpuscular Volume 90.8 fL (80.0-100.0) Mean Corpuscular Hemoglobin 30.9 pg (28.0-32.0) Mean Corpuscular Hemoglobin Concent 34.0 g/dL (32.0-36.0) Red Cell Distribution Width 14.8 % (11.8-14.3) Platelet Count 203 10^3/uL (140-450) Mean Platelet Volume 9.6 fL (6.9-10.8) Neutrophils (%) (Auto) 72.9 % (37.0-80.0) Lymphocytes (%) (Auto) 19.3 % (10.0-50.0) Monocytes (%) (Auto) 7.0 % (0.0-12.0) Eosinophils (%) (Auto) 0.5 % (0.0-7.0) Basophils (%) (Auto) 0.3 % (0.0-2.0) Neutrophils # (Auto) 6.3 10 ^3/uL (1.6-8.6) Lymphocytes # (Auto) 1.7 10 ^3/uL (0.4-5.4) Monocytes # (Auto) 0.6 10 ^3/uL (0-1.3) Eosinophils # (Auto) 0 10 ^3/uL (0-0.8) Basophils # (Auto) 0 10 ^3/uL (0-0.2) Nucleated Red Blood Cells 0.1 % Sodium Level 143 mmol/L (136-145) Potassium Level 4.0 mmol/L (3.5-5.1) Chloride Level 106 mmol/L (98-107) Carbon Dioxide Level 26 mmol/L (20-31) Anion Gap 11 (5-15) Blood Urea Nitrogen 20 mg/dL (9-23) Creatinine 0.85 mg/dL (0.700-1.30) Glomerular Filtration Rate Calc 103 mL/min (>90) BUN/Creatinine Ratio 23.5 (10.0-20.0) Serum Glucose 116 mg/dL (74-106) Calcium Level 8.5 mg/dL (8.7-10.4) Total Bilirubin 1.0 mg/dL (0.2-1.0) Aspartate Amino Transferase (AST) 23 U/L (13-40) Alanine Aminotransferase (ALT) 25 U/L (7-40) Alkaline Phosphatase 103 U/L (46-116) Total Protein 5.4 g/dL (5.7-8.2) Albumin 3.5 g/dL (3.2-4.8) Urine Color Light-yellow (Yellow) Urine Clarity Clear (Clear) Urine pH 5.5 (5.0-9.0) Urine Specific Thompson 1.013 (1.001-1.035) Urine Protein Negative (Negative) Urine Ketones Negative (Negative) Urine Blood Negative /uL (Negative) Urine Nitrite Negative (Negative) Urine Bilirubin Negative (Negative) Urine Urobilinogen Normal mg/dL (Negative) Urine Leukocyte Esterase Trace /uL (Negative) Urine RBC <1 /hpf (0 - 3) Urine Microscopic WBC 1 /HPF (0-3) Urine Squamous Epithelial Cells Few /hpf (<5) Urine Bacteria None seen /hpf (None Seen) Urine Glucose Trace mg/dL (Normal) Urine Opiates Screen Neg (NEGATIVE) Urine Fentanyl Screen Neg (NEGATIVE) Urine Barbiturates Screen Neg (NEGATIVE) Urine Phencyclidine Screen Neg (NEGATIVE) Urine Amphetamines Screen Pos (NEGATIVE) Urine Benzodiazepines Screen Neg (NEGATIVE) Urine Cocaine Screen Neg (NEGATIVE) Urine Cannabinoids Screen Neg (NEGATIVE) Troponin I High Sensitivity 59 ng/L (</=54) Test 04/06/25 02:43 Hemoglobin A1c 7.2 % A1C (<5.7) B-Type Natriuretic Peptide 2482.10 pg/mL (0-100) Other Laboratory Tests 04/08/25 06:16 Brief Hx & Hospital Course: 54-year-old male with past medical history of asthma, CHF, diabetes, [place], appendectomy, tobacco use, meth use, alcohol use, and left knee surgery who presents to the ED with shortness of breath that began 3 days ago, also reports bilateral lower extremity edema for 1 week, and left lower extremity pain 7/10 pressure-like and constant. He reports that there are no triggering or alleviating factors for his lower extremity pain. He reports that he does ambulate without any DMEs however his spouse at chair side is requesting for a cane. Patient reports that he drinks alcohol occasionally, smokes cigarettes less than half a pack, and uses meth daily. Patient also reports that he has not seen a primary care physician the last 2 months but did see one at [facility]. Patient's spouse Itzel reports that he has been taking his water pill and a has not been working. 04/07: Patient here with noncompliance of home meds for 1 week, now in CHF exacerbation. No longer on oxygen. We will continue IV Lasix 20 IV b.i.d.. Continue other home medications for HFrEF. Continue GDM T. patient consult on importance of taking home meds. 04/08: Patient is looking better, walking the halls, talking to staff in the halls. Appears more euvolemic. Ready for discharge with home dose Lasix and home GDM T for HFrEF. Diagnosis: Acute on chronic CHF exacerbation, systolic dysfunction Acute hypoxic respiratory failure and supportive oxygen Acute asthma exacerbation likely due to tobacco and meth use Left lower extremity pain rule out DVT Alcohol use HFrEF, 15-20% History of diabetes History of [place] History of appendectomy History of left knee surgery Plan: -Continue taking home medications as per chart -follow up with PCP to review discharge 1-2 weeks -follow up with DC clinic -PCP to refer to Cardiology Condition at Discharge: Fair Final Diagnosis/Problems List Acute on chronic CHF exacerbation, systolic dysfunction Acute hypoxic respiratory failure and supportive oxygen Acute asthma exacerbation likely due to tobacco and meth use Left lower extremity pain rule out DVT Alcohol use HFrEF, 15-20% History of diabetes History of [place] History of appendectomy History of left knee surgery Discharge Disposition: Home Discharge Instruct/Medications Scheduled Albuterol Sulfate (Albuterol Sulfate), 1 VIAL NEB Q4HPRN, (Reported) Albuterol Sulfate (Ventolin), 2.5 MG NEB Q4HR Aspirin (Chewable Aspirin), 1 TAB PO DAILY, (Reported) Carvedilol (Coreg), 3.125 MG OR BID Empagliflozin (Jardiance), 1 TAB PO DAILY, (Reported) Enalapril Maleate (Vasotec), 1 TAB PO DAILY Furosemide (Lasix), 1 TAB PO DAILY Nicotine (Nicotine Transdermal Syst), 14 MG TD DAILY Pantoprazole Sodium Sesquihydr (Protonix), 40 MG PO DAILY Potassium Chloride (Klor-Con 8), 8 MEQ PO DAILY Spironolactone (Spironolactone), 0.5 TAB PO DAILY Scheduled PRN Albuterol Sulfate (Ventolin Mdi), 90 MCG IN Q6HP PRN Albuterol Sulfate (Ventolin Mdi), 180 MCG IN Q6HP PRN Albuterol Sulfate (Ventolin Mdi), 90 MCG IN PRN PRN for SHORTNESS OF BREATH Miscellaneous Medications Atorvastatin Calcium (Atorvastatin Calcium), (Reported) Discharge Statement: "Patient was advised to return to the ER or call 911 if any headaches, dizziness, shortness of breath, chest pain, abdominal pain, bleeding, fevers, or worsening of medical condition. Patient was counseled about treatment plan, medications, possible side effects, patientverbalized understanding. All questions were answered to the best of my ability. This discharge took greater then 30 minutes in planning, reviewing documentation, counseling the patient, and discussing with other team members." ASSESSMENT ASSESSMENT Assessment Date of Service: Apr 08, 2025 Billing Provider: LUCAS MANDEL MD Common Visit Codes: 87649-PCB/OBS DISCH DAY >30min LUCAS MANDEL MD Apr 08, 2025 10:33
[2025-04-08 13:00] VITALS: BP 128/78; PULSE 109; RESP 19; TEMP 98.7; O2SAT 97
[2025-04-08] MEDS ORDERED: FURO1TAB33 PO (13:17)
[2025-04-08] MEDS ORDERED: SPIR25TA8 PO (13:17)
[2025-04-08] MEDS ORDERED: EMPA1TAB PO (13:17)
[2025-04-08] MEDS ORDERED: ASPI1CHW5 PO (13:17)
[2025-04-08] MEDS ORDERED: CARV-214 PO (13:17)
[2025-04-08] MEDS ORDERED: ATOR40TA52 PO (13:17)
[2025-04-08] MEDS ORDERED: ENAL5TAB85 PO (13:17)
== END 2025-04-08 16:20 | disposition home or self-care (01) | DRG 133 ==
LOC: ER 01:59 → OVERFLOW 08:17 → WEST WING 11:03
PROVIDERS: ADMIT Student in an Organized Health Care Education/Training Program; ATTEND Student in an Organized Health Care Education/Training Program
DX: J96.01 Acute respiratory failure with hypoxia (principal); I50.23 Acute on chronic systolic (congestive) heart failure; I82.403 Acute embolism and thrombosis of unspecified deep veins of lower extremity, bilateral; I11.0 Hypertensive heart disease with heart failure; J45.901 Unspecified asthma with (acute) exacerbation; E11.9 Type 2 diabetes mellitus without complications; F15.10 Other stimulant abuse, uncomplicated; F17.210 Nicotine dependence, cigarettes, uncomplicated; I25.2 Old myocardial infarction; Z90.49 Acquired absence of other specified parts of digestive tract; Z88.7 Allergy status to serum and vaccine; Z82.49 Family history of ischemic heart disease and other diseases of the circulatory system; Z91.199 Patient's noncompliance with other medical treatment and regimen due to unspecified reason
CPT/HCPCS: 36415; 71045; 80053; 80307; 81001; 82962; 83036; 83880; 84484; 85025; 87081; 93005; 93970; 96374; 99291; G0378; J1815

== ENCOUNTER 2025-04-17 18:55 | Emergency (ER) | payer MEDICAID ==
[~2025-04-17 18:55] MED LIST changes: -ALB5IS NEB; +ASPI1CHW5 PO; +ATOR40TA52 PO; -AZIT500T66 PO; -CARV-214 OR; +CARV-214 PO; +EMPA1TAB PO; -PANT40TA2 PO; -POTA8TAB38 PO
--- NOTE | 2025-04-17 19:11 | ED.PDOC ---
History of Present Illness HPI Comments 54-year-old male who is brought in by ambulance from private residence for chief complaint of nonradiating, midsternal chest wall pain. Significant history for asthma, CHF, DM, [place], and polysubstance abuse. Patient endorses 3 day history of pain following initial, unprovoked and atraumatic onset. He reports associated dizziness and left leg swelling, currently. Denies any nausea, vomiting, shortness of breath, or further acute symptoms. No endorsement of any recent stressors, strenuous activities, travel, sick contact, or further pertinent events or history, with the exception of 1 isolated episode of similar chest pain in the past. Patient comments on having no recollection on diagnosis given 1st chest pain episode then. Per EMS personnel report, patient's vitals were stable and within normal limits, with the exception of him having a tachycardic rate. REVIEW OF SYSTEMS: General: No fever, no chills, or fatigue HEENT: No sore throat, no earache, no congestion, no neck pain. Cardiac: Chest wall pain. No chest pain. No palpitations. Lungs: No shortness of breath, no cough. GI: No nausea, no vomiting, no diarrhea, no constipation, no abdominal pain : No dysuria, frequency, or urgency. No hematuria. Musculoskeletal: Left leg swelling. No joint pain , no joint swelling Skin: No rash, no itching. Neuro: Dizziness. No headache, no weakness (And as sated in HPI) PHYSICAL EXAM: General: Awake, alert and oriented. No acute distress. Skin: Skin in warm, dry and intact. Appropriate color for ethnicity. HEENT: The head is normocephalic and atraumatic. Conjunctivae are clear without exudates or hemorrhage. Sclera is non-icteric. Eyelids are normal in appearance without swelling or lesions. Oral mucosa is pink and moist Neck: The neck is supple with normal range of motion. No JVD. Cardiac: Heart rate and rhythm are normal. No murmurs, gallops, or rubs are auscultated. Respiratory: No signs of respiratory distress. Lung sounds are clear in all lobes bilaterally without rales, rhonchi, or wheezes. Abdominal: Abdomen is soft, non-tender without distention, guarding or rigidity. Bowel sounds are present and normoactive in all four quadrants. Extremities: 2+ pitting edema to LLE. Remaining upper and lower extremities are atraumatic in appearance without deformity or edema. Neurological: The patient is awake, alert and oriented to person, place, and time with normal speech. Speech is clear. There is no facial asymmetry. Psychiatric: Appropriate mood and affect. Good judgement and insight. Time Seen by MD: 19:00 Primary Care Provider: UNKNOWN Reviewed Notes: Nurses Notes, Senior Foreman Notes, Medications, Allergies Allergies: Coded Allergies: No Known Drug Allergy (Verified Allergy, Unknown, 09/01/22) Uncoded Allergies: COVID VACCINE (Allergy, Unknown, 06/13/22) Home Meds Active Scripts Empagliflozin (Jardiance) 10 Mg Tab, 1 TAB PO DAILY for 30 Days, #30 TAB 1 Refill Prov:LUCAS MANDEL MD 04/08/25 Aspirin (Chewable Aspirin) 81 Mg Chw, 1 TAB PO DAILY for 30 Days, #30 TAB.CHEW 1 Refill Prov:LUCAS MANDEL MD 04/08/25 Atorvastatin Calcium (ATORVASTATIN CALCIUM) 40 Mg Tab, 1 TAB PO DAILY for 30 Days, #30 TAB 1 Refill Prov:LUCAS MANDEL MD 04/08/25 Enalapril Maleate (Vasotec) 5 Mg Tab, 1 TAB PO DAILY for 30 Days, #30 TAB 1 Refill Prov:LUCAS MANDEL MD 04/08/25 Carvedilol (COREG) 3.125 Mg Tab, 3.125 MG PO BID for 30 Days, #60 TAB 1 Refill Prov:LUCAS MANDEL MD 04/08/25 Spironolactone (Spironolactone) 25 Mg Tab, 0.5 TAB PO DAILY, #30 TAB 1 Refill Prov:LUCAS MANDEL MD 04/08/25 Furosemide (Lasix) 20 Mg Tb, 1 TAB PO DAILY for 30 Days, #30 TAB 1 Refill Prov:LUCAS MANDEL MD 04/08/25 Albuterol Sulfate (VENTOLIN MDI) 90 Mcg Ih, 90 MCG IN PRN PRN for SHORTNESS OF BREATH for 30 Days, #30 MCG Prov:RICHARD PAYAN MD 06/22/22 Nicotine (Nicotine Transdermal Syst) 14 Mg/24 Hr Dis, 14 MG TD DAILY, #14 DIS Prov:TASHA VALDEZ MD 09/16/21 Albuterol Sulfate (VENTOLIN MDI) 90 Mcg Ih, 90 MCG IN Q6HP PRN for 15 Days, #1 MCG Prov:TALI ECHAVARRIA DO 06/25/21 Reported Medications Albuterol Sulfate (Albuterol Sulfate) 0.083 % Neb, 1 VIAL NEB Q4HPRN, #50 VIAL 09/14/21 Information Source: Patient, Emergency Med Personnel Mode of Arrival: EMS Severity: Moderate Timing: Days Duration: Since onset Prehospital treatment: 12 Lead EKG, Soda Fountain Clerk Past Medical History PAST MEDICAL HISTORY: Asthma, CHF, DM, [place] Surgical History: Appendectomy Surgical History (Other): Left knee surgery Abdominal surgery Family History Family History: Reviewed,noncontributory to illness Social History Smoker: Less Than 1 Pack/Day Alcohol: Occasionally Drugs: Methamphetamine Lives In: Home Was a procedure done? Was a procedure done?: No EKG EKG #1: Pulse Rate (adult): 96 [place]: Normal Cardiac Rhythm: NSR Block: None Hypertrophy: None ST: Normal EKG #2: Pulse Rate (adult): 97 [place]: Normal Block: None Hypertrophy: None ST: Normal Differential Dx Considerations may include: Differential diagnoses considered include acute ischemic coronary syndrome, aortic dissection, cardiac tamponade, mediastinitis, pulmonary embolus, pneumothorax, tension pneumothorax, esophageal rupture, coronary artery vasospasm, myocarditis, pericarditis, pneumonia, pulmonary edema, esophageal tear, pancreatitis, aortic stenosis, dilated cardiomyopathy, hypertrophic cardiomyopathy, mitral valve prolapse, malignancy, pleuritis, pneumomediastinum, primary pulmonary hypertension, cholecystitis, esophageal spasm, esophagus, gastritis, GERD, peptic ulcer disease, costochondritis, fibromyalgia, rib fracture, herpes zoster, radicular syndromes, thoracic outlet syndrome, somatization. X-Ray, Labs, Meds, VS Vital Signs Date Time Temp Pulse Resp B/P (MAP) Pulse Ox O2 Delivery O2 Flow Rate FiO2 04/18/25 00:54 97 Nasal Cannula* 2 28 04/18/25 00:53 97.9 84 20 100/67 (78) 97.9 04/17/25 21:52 94 04/17/25 20:53 97 04/17/25 19:56 97 04/17/25 19:02 96 04/17/25 18:55 98.9 102 15 120/88 100 98.9 Lab Test 04/17/25 22:44 04/17/25 21:26 04/17/25 19:37 Range/Units Troponin I High Sensitivity 38 43 48 </=54 ng/L White Blood Count 9.6 4.4-10.8 10^3/uL Red Blood Count 4.77 4.5-5.90 10^6/uL Hemoglobin 14.4 13.5-17.5 g/dL Hematocrit 43.4 41.0-53.0 % Mean Corpuscular Volume 91.0 80.0-100.0 fL Mean Corpuscular Hemoglobin 30.2 28.0-32.0 pg Mean Corpuscular Hemoglobin Concent 33.2 32.0-36.0 g/dL Red Cell Distribution Width 14.8 H 11.8-14.3 % Platelet Count 239 140-450 10^3/uL Mean Platelet Volume 9.2 6.9-10.8 fL Neutrophils (%) (Auto) 68.8 37.0-80.0 % Lymphocytes (%) (Auto) 24.6 10.0-50.0 % Monocytes (%) (Auto) 5.5 0.0-12.0 % Eosinophils (%) (Auto) 0.3 0.0-7.0 % Basophils (%) (Auto) 0.8 0.0-2.0 % Neutrophils # (Auto) 6.6 1.6-8.6 10 ^3/uL Lymphocytes # (Auto) 2.4 0.4-5.4 10 ^3/uL Monocytes # (Auto) 0.5 0-1.3 10 ^3/uL Eosinophils # (Auto) 0 0-0.8 10 ^3/uL Basophils # (Auto) 0.1 0-0.2 10 ^3/uL Nucleated Red Blood Cells 0.1 % Sodium Level 143 136-145 mmol/L Potassium Level 4.6 3.5-5.1 mmol/L Chloride Level 107 98-107 mmol/L Carbon Dioxide Level 25 20-31 mmol/L Anion Gap 11 5-15 Blood Urea Nitrogen 29 H 9-23 mg/dL Creatinine 1.24 0.700-1.30 mg/dL Glomerular Filtration Rate Calc 69 >90 mL/min BUN/Creatinine Ratio 23.4 H 10.0-20.0 Serum Glucose 111 H 74-106 mg/dL Calcium Level 8.9 8.7-10.4 mg/dL B-Type Natriuretic Peptide 2187.80 0-100 pg/mL Current Medications Medications (Trade) Dose Ordered Sig/Monalisa Route Start Time Stop Time Status Last Admin Furosemide (Lasix Tablet) 40 mg ONCE ONCE PO 04/18/25 01:15 04/18/25 01:16 DC 04/18/25 01:24 [place] [address] Ph: [phone] DIAGNOSTIC IMAGING Diagnostic Imaging Report : [id number] Signed PATIENT: MICKEY YUAN ACCT: [id number] UNIT: [id number] : 1970 LOC: ER ROOM / BED: / AGE / SEX: 54 / M ADM STATUS: REG ER SERVICE 99 ORDERING PHYSICIAN: TERI SALOMON MD PROCEDURE(s): CXR1 - CHEST XRAY 1 VIEW REASON: cp ORDER NUMBER(s): [id number], ACCESSION NUMBER(s): [id number] CHEST RADIOGRAPH Indication: cp Technique: Single frontal view of the chest was obtained. Comparison: XY CHEST XRAY 1 VIEW on DOS: 04/06/25 Findings: No focal consolidation. No significant pleural effusion. No pneumothorax. Stable enlarged cardiomediastinal silhouette. IMPRESSION: No acute cardiopulmonary disease. ATED BY: BRINA BHATTI MD DICTATED DATE/TIME: 04/17/251955 SIGNED BY: BRINA BHATTI MD SIGNED DATE/TIME: 04/17/251955 CC: [address] [address] Ph: [phone] DIAGNOSTIC IMAGING Diagnostic Imaging Report : [id number] Signed PATIENT: MICKEY YUAN ACCT: [id number] UNIT: [id number] : 1970 LOC: ER ROOM / BED: / AGE / SEX: 54 / M ADM STATUS: REG ER SERVICE 99 ORDERING PHYSICIAN: TERI SALOMON MD PROCEDURE(s): LLDVT - LT Lower DVT REASON: r/o dvt ORDER NUMBER(s): [id number], ACCESSION NUMBER(s): [id number] US LT Lower DVT Comparison: US BILAT LOWER DVT on DOS: 04/06/25 Technique: Realtime grayscale and Doppler ultrasound images of the deep venous structures with spectral waveform analysis were obtained.Doppler spectral waveform analysis of the left lower extremity veins was performed. Findings: Left Lower Extremity: Left common femoral vein: Normal compressibility and flow. Left femoral vein: Normal compressibility and flow. Left popliteal vein: Normal compressibility and flow. Proximal calf veins are normally compressible. IMPRESSION: NO SONOGRAPHIC EVIDENCE FOR DEEP VENOUS THROMBOSIS IN THE LEFT LOWER EXTREMITY VEINS. ATED BY: BRINA BHATTI MD DICTATED DATE/TIME: 04/17/251936 SIGNED BY: BRINA BHATTI MD SIGNED DATE/TIME: 04/17/251936 CC: Time of 1ST Reevaluation: 19:11 Reevaluation 1ST: Unchanged Patient Education/Counseling: Need For Follow Up Family Education/Counseling: No Family Present SEPSIS Sepsis Screen Physician Orders Electrocardigram (04/17/25 19:00) Chest Xray 1 View (04/17/25 19:00) Soda Fountain Clerk (04/17/25 ) Electrocardigram (04/17/25 20:00) Electrocardigram (04/17/25 22:00) Lt Lower Dvt (04/17/25 19:00) Vital Signs Date Time Temp Pulse Resp B/P (MAP) Pulse Ox O2 Delivery O2 Flow Rate FiO2 04/18/25 00:54 97 Nasal Cannula* 2 28 04/18/25 00:53 97.9 84 20 100/67 (78) 97.9 04/17/25 21:52 94 04/17/25 20:53 97 04/17/25 19:56 97 04/17/25 19:02 96 04/17/25 18:55 98.9 102 15 120/88 100 98.9 Laboratory Tests Test 04/17/25 19:37 White Blood Count 9.6 10^3/uL (4.4-10.8) Departure 1 Departure Time of Disposition: 00:18 Impression: Primary Impression: Chest pain Disposition: 01 HOME / SELF CARE / HOMELESS Condition: Stable Additional Instructions: ED DISCHARGE INSTRUCTIONS Instructions: Please read all instructions provided in this packet carefully. Although you have been discharged from the Emergency Department, this does not mean that you have a "clean bill of health". No definitive diagnosis for your symptoms has been made today. It is possible that you are in the process of developing a serious illness. This is why you must return to the ED without fail if any new or worsening symptoms (especially if your symptoms include chest pain, trouble breathing, abdominal pain, fever, headache, confusion, trouble seeing, or trouble walking) It is also very important that you see a primary care provider (PCP) within the next 3-5 days to follow up. If you are unable to get an appointment, return to the ED for re-evaluation. CHEST PAIN EDUCATION There are many things that can cause chest pain. Some are not serious and will get better on their own in a few days. But some kinds of chest pain need more testing and treatment. Your doctor may have recommended a follow-up visit in the next few days. If you are not getting better, you may need more tests or henrique tment. Even though your doctor has released you, you still need to watch for any problems. The doctor carefully checked you, but sometimes problems can develop later. If you have new symptoms or if your symptoms do not get better, get medical care right away. If you have worse or different chest pain or pressure that lasts more than 5 minutes or you passed out (lost consciousness), call 911 or seek other emergency help right away. A medical visit is only one step in your treatment. Even if you feel better, you still need to do what your doctor recommends, such as going to all suggested follow-up appointments and taking medicines exactly as directed. This will help you recover and help prevent future problems. How can you care for yourself at home? Rest until you feel better. Take your medicine exactly as prescribed. Call your doctor if you think you are having a problem with your medicine. Do not drive after taking a prescription pain medicine. When should you call for help? Call 911 if: You passed out (lost consciousness). You have severe difficulty breathing. You have symptoms of a heart attack. These may include: Chest pain or pressure, or a strange feeling in your chest. Sweating. Shortness of breath. Nausea or vomiting. Pain, pressure, or a strange feeling in your back, neck, jaw, or upper belly or in one or both shoulders or arms. Lightheadedness or sudden weakness. A fast or irregular heartbeat. After you call 911, the oil and gas well treatment operator may tell you to chew 1 adult-strength or 2 to 4 low-dose aspirin. Wait for an ambulance. Do not try to drive yourself. Call your doctor now or seek immediate medical care if: You have any trouble breathing. You have new or different chest pain. You are dizzy or lightheaded, or you feel like you may faint. Watch closely for changes in your health, and be sure to contact your doctor if you do not get better as expected. Current as of: December 30, 2023 Author: [employer] Staff? Comments MDM: 54-year-old male with chest pain. Serial EKG negative for signs of ischemia. Serial High sensitivity troponin negative. CXR shows no acute process. Left lower extremity ultrasound negative for DVT Presentation not suggestive of acute coronary syndrome, pulmonary embolism or aortic dissection. Patient improved at time of discharge. Patient has not been hypoxic, in respiratory distress or dyspneic during the ED observation. Patient able to ambulate without difficulty. Patient felt stable for discharge to follow up with PCP promptly. Patient advised to return to the ED with any new, worsening or concerning symptoms or inability to follow up with PCP. Extensive evaluation was performed in attempt to identify or rule out: (See differential diagnosis section) The following tests were ordered, and results were reviewed by me and discussed with patient: (See diagnostic results section) The following test were independently interpreted by me: EKG, BNP, BMP, CBC, chest [id number] with a no acute disease I reviewed and agreed with the following test results read by other providers: Left lower extremity DVT ultrasound, chest x-ray I reviewed the following notes from the pt's past medical encounters: April 06, 2025 encounter for acute on chronic CHF exacerbation Additional information was gathered from interviewing the following independent historians: EMS personnel Decision regarding hospitalization or escalation of hospital level of care: Risks and benefits of admission for further treatment of patient's condition was considered however due to patient's stable condition patient will be discharged to follow up closely or return to care for worsening of condition or inability to follow up. Critical Care Note Critical Care Time?: No Stability Stability form required: No Heart Score Heart Score: Heart Score Response (Comments) Value History N/A 0 EKG N/A 0 Age N/A 0 Risk Factors N/A 0 Troponin N/A 0 Total 0 I personally scribed for TERI SALOMON MD ([email or web address]) on 04/17/25 at 19:11. Electronically submitted by Wayne Tabor ([email or web address]). I personally scribed for TERI SALOMON MD ([email or web address]) on 04/17/25 at 20:53. Electronically submitted by Misael Bedoya ([email or web address]). TERI SALOMON MD Apr 17, 2025 19:11
--- NOTE | 2025-04-17 19:39 | DVH ---
US LT Lower DVT Comparison: US BILAT LOWER DVT on DOS: 04/06/25 Technique: Realtime grayscale and Doppler ultrasound images of the deep venous structures with spectral waveform analysis were obtained.Doppler spectral waveform analysis of the left lower extremity veins was performed. Findings: Left Lower Extremity: Left common femoral vein: Normal compressibility and flow. Left femoral vein: Normal compressibility and flow. Left popliteal vein: Normal compressibility and flow. Proximal calf veins are normally compressible. IMPRESSION: NO SONOGRAPHIC EVIDENCE FOR DEEP VENOUS THROMBOSIS IN THE LEFT LOWER EXTREMITY VEINS.
[2025-04-17 19:48] LABS: Hematocrit 43.4 % (41.0-53.0); Hemoglobin 14.4 g/dL (13.5-17.5); Mean Corpuscular Hemoglobin 30.2 pg (28.0-32.0); Mean Corpuscular Volume 91.0 fL (80.0-100.0); Nucleated Red Blood Cells % 0.1 %
[2025-04-17 19:56] LABS: Chloride 107 mmol/L (98-107); Potassium 4.6 mmol/L (3.5-5.1); Sodium 143 mmol/L (136-145)
[2025-04-17 19:57] LABS: Anion Gap 11 (5-15); Calcium 8.9 mg/dL (8.7-10.4); Carbon Dioxide 25 mmol/L (20-31)
--- NOTE | 2025-04-17 19:59 | DVH ---
CHEST RADIOGRAPH Indication: cp Technique: Single frontal view of the chest was obtained. Comparison: XY CHEST XRAY 1 VIEW on DOS: 04/06/25 Findings: No focal consolidation. No significant pleural effusion. No pneumothorax. Stable enlarged cardiomediastinal silhouette. IMPRESSION: No acute cardiopulmonary disease.
[2025-04-17 20:02] LABS: BUN/Creatinine Ratio 23.4 (10.0-20.0)
[2025-04-17 20:07] LABS: Blood Urea Nitrogen 29 mg/dL (9-23); Glucose 111 mg/dL (74-106)
[2025-04-17] MEDS ORDERED: FUROSEMIDE 40 MG/4 ML VIAL IV ONE (21:30)
[2025-04-18 00:53] VITALS: BP 100/67; PULSE 84; RESP 20; TEMP 97.9
[2025-04-18 00:54] VITALS: O2SAT 97
[2025-04-18] MEDS: MORPHINE SULFATE INJ 2 MG/ml SYRG IV ONE (00:57)
[2025-04-18] MEDS: FUROSEMIDE 40 MG TAB PO ONE (01:24)
--- NOTE | 2025-04-18 07:36 | ECG ---
[facility] Test Date: 2025-04-17 Test Time: 21:52:50 Pat Name: MICKEY YUAN Department: ED Room: Gender: Forestry Tree Pruner: : 1970 Requested By: TERI SALOMON Order Number: [id number] Reading MD: Jaxon Monroy Measurements Intervals [place] Rate: 94 P: 38 MA: 146 QRS: -12 QRSD: 95 T: 138 QT: 375 QTc: 469 Interpretive Statements Sinus rhythm Probable left atrial enlargement Abnormal R-wave progression, late transition Nonspecific T abnormalities, lateral leads Electronically Signed On 04-18-2025 17:59:44 PST by Jaxon Monroy Please click the below link to view image of tracing.
--- NOTE | 2025-04-18 07:36 | ECG ---
[facility] Test Date: 2025-04-17 Test Time: 19:56:50 Pat Name: MICKEY YUAN Department: ED Room: Gender: Workday Senior Associate: : 1970 Requested By: TERI SALOMON Order Number: [id number] Reading MD: Jaxon Monroy Measurements Intervals [place] Rate: 97 P: 26 KS: 139 QRS: -19 QRSD: 90 T: 106 QT: 350 QTc: 445 Interpretive Statements Sinus rhythm Left atrial enlargement Borderline left axis deviation Abnormal R-wave progression, late transition Nonspecific T abnormalities, lateral leads Electronically Signed On 04-18-2025 17:59:24 PST by Jaxon Monroy Please click the below link to view image of tracing.
--- NOTE | 2025-04-18 07:38 | ECG ---
[facility] Test Date: 2025-04-17 Test Time: 18:47:21 Pat Name: MICKEY YUAN Department: ED Room: Gender: M Outreach Associate: gp : 1970 Requested By: TERI SALOMON Order Number: [id number] Reading MD: Jaxon Monroy Measurements Intervals [place] Rate: 96 P: 44 SD: 141 QRS: -22 QRSD: 92 T: 106 QT: 354 QTc: 448 Interpretive Statements Sinus rhythm Left atrial enlargement Abnormal R-wave progression, late transition Inferior infarct, old Lateral leads are also involved Electronically Signed On 04-18-2025 17:59:19 PST by Jaxon Monroy Please click the below link to view image of tracing.
== END 2025-04-18 01:26 | disposition home or self-care (01) ==
LOC: ER 18:55
DX: R07.2 Precordial pain (principal); E11.9 Type 2 diabetes mellitus without complications; I50.9 Heart failure, unspecified; I25.2 Old myocardial infarction; F17.210 Nicotine dependence, cigarettes, uncomplicated; J45.909 Unspecified asthma, uncomplicated; Z79.899 Other long term (current) drug therapy; Z90.49 Acquired absence of other specified parts of digestive tract; Z86.718 Personal history of other venous thrombosis and embolism; Z79.84 Long term (current) use of oral hypoglycemic drugs; Z79.82 Long term (current) use of aspirin
CPT/HCPCS: 36415; 71045; 80048; 83880; 84484; 85025; 93005; 93971

== ENCOUNTER 2025-04-27 16:15 | Inpatient (IN) | payer MEDICAID ==
[~2025-04-27] VITALS: Ht 170.2 cm; Wt 88.4 kg
--- NOTE | 2025-04-27 16:43 | ED.PDOC ---
SOB-HPI HPI Comments 54-year-old male with medical history of hypertension and asthma, presents to the ED for a chief complaint of shortness a breath that is started three days ago. Patient reports the shortness a breath worsens on exertion but states today he did uses an inhaler which provided some relief. Patient reports that he developed some sharp chest pain yesterday which is now described as a tightness sensation today that diffuse as across his chest, is constant, and has no alleviating factors. She denies any nausea, vomiting, palpitations, fever, chills, or recent illness. He reports occasional tobacco and alcohol use. Chief Complaint: Shortness of Breath Time Seen by MD: 16:30 Primary Care Provider: UNKNOWN Reviewed notes: Nurses Notes, Medications, Allergies Information Source: Patient Mode of Arrival: Ambulatory Severity: Moderate Timing: Days (3) Duration: Since onset Context: At Rest PE Risk Factors: None History of: Asthma Modifying Factors: Inhaler; Exertion Associated Signs and Symptoms: Chest Pain Quality: Tightness Radiation: No Radiation Location: Substernal Past Medical History PAST MEDICAL HISTORY: Asthma, CHF, DM, HTN, VA Surgical History: Appendectomy Family History Family History: Reviewed,noncontributory to illness Social History Smoker: Less Than 1 Pack/Day Alcohol: Occasionally Drugs: Denies Drug Use Lives In: Home Constitutional: denies: chills, diaphoresis, fatigue, fever, malaise, sweats, weakness, others EENTM: denies: blurred vision, double vision, ear bleeding, ear discharge, ear drainage, ear pain, ear ringing, eye pain, eye redness, hearing loss, mouth pain, mouth swelling, nasal discharge, nose bleeding, nose congestion, nose pain, photophobia, tearing, throat pain, throat swelling, voice changes, others Respiratory: reports: SOB at rest, shortness of breath, SOB with excertion; denies: cough, hemoptysis, orthopnea, stridor, wheezing, others Cardiovascular: reports: chest pain, Dyspnea on exertion; denies: dizzy spells, diaphoresis, edema, irregular heart beat, left arm pain, lightheadedness, palpitations, PND, syncope, others Gastrointestinal: denies: abdomen distended, abdominal pain, blood streaked bowels, constipated, diarrhea, dysphagia, difficulty swallowing, hematemesis, m rachel, nausea, poor appetite, poor fluid intake, rectal bleeding, rectal pain, vomiting, others Genitourinary: denies: burning, dysuria, flank pain, frequency, hematuria, incontinence, penile discharge, penile sore, pain, testicle pain, testicle swelling, urgency, others Neurological: denies: dizziness, fainting, headache, left sided numbness, left sided weakness, numbness, paresthesia, pre-existing deficit, right sided numbness, right sided weakness, seizure, speech problems, tingling, tremors, weakness, others Musculoskeletal: denies: back pain, gout, joint pain, joint swelling, muscle pain, muscle stiffness, neck pain, others Integumetry: denies: bruises, change in color, change in hair/nails, dryness, laceration, lesions, lumps, rash, wounds, others Allergic/Immunocompromised: denies: Difficulty Healing, Frequent Infections, Hives, Itching, others Hematologic/Lymphatic: denies: anemia, blood clots, easy bleeding, easy bruising, swollen glands, others Endocrine: denies: excessive hunger, excessive sweating, excessive thirst, excessive urination, flushing, intolerance to cold, intolerance to heat, unexplained weight gain, unexplained weight loss, others Psychiatric: denies: anxiety, bipolar disorder, depression, hopeless, panic disorder, schizophrenia, sleepless, suicidal, others All Other Systems: Reviewed and Negative Physical Exam General Appearance: Moderate Distress HEENT: Normal ENT Inspection, Pharynx Normal, TMs Normal Neck: Full Range of Motion, Non-Tender, Normal, Normal Inspection Respiratory: Other (Coarse breath sounds) Cardiovascular: No Edema, No JVD, No Murmur, No Gallop, Normal Peripheral Pulses, Regular Rate/Rhythm Breast Exam: Deferred Gastrointestinal: No Organomegaly, Non Tender, No Pulsatile Mass, Normal Bowel Sounds, Soft Genitalia: Deferred Pelvic: Deferred Rectal: Deferred Extremities: No calf tenderness, Normal capillary refill, Normal inspection, Normal range of motion, Non-tender, No pedal edema Musculoskeletal : Apperance: Normal Neurologic: Alert, anesthetist II-XII nml as Tested, No Motor Deficits, Normal Affect, Normal Mood, No Sensory Deficits Cerebellar Function: Normal Reflexes: Normal Skin: Dry, Normal Color, Warm Peripheral Pulses: 3+ Radial (R), 3+ Radial (L) Lymphatic: No Adenopathy EKG EKG : Pulse Rate (adult): 101 [place]: Normal Cardiac Rhythm: ST Block: None ST: Normal Was a procedure done? Was a procedure done?: No Differential Dx Differential Diagnosis: Anxiety, Asthma, CHF, COPD, Myocardial infarction, Pneumonia, Respiratory Distress, URI X-Ray, Labs, Meds, VS Vital Signs Date Time Temp Pulse Resp B/P (MAP) Pulse Ox O2 Delivery O2 Flow Rate FiO2 04/27/25 16:43 101 04/27/25 16:27 101 04/27/25 16:17 98.0 101 16 116/83 98 98.0 Patient alert. Came in because of chest pain shortness a breath. Vitals stable. Answering questions. Continues to have chest pain. Was given aspirin. Was given nitro. EKG reviewed does not show any acute changes. Explained to the patient. Continue monitoring. Time of 1ST Reevaluation: 16:43 Reevaluation 1ST: Unchanged Patient Education/Counseling: Diagnosis, Treatment, Prognosis Family Education/Counseling: No Family Present SEPSIS Sepsis Screen Date sepsis recognized/suspect: Apr 27, 2025 Time Sepsis recognized/suspect: 1622 Recent Procedure: No On Antibiotic Therapy: No Respiratory Rate >20: No Heart Rate >90: Yes Temp<36 C (96.8 F) or >38.3 C: No SBP <90 or MAP <65 mmHG: No New Acute Mental Status Change: No Is the patient on CPAP, BIPAP,: No Physician Orders Electrocardigram (04/27/25 16:24) Troponin-I Hs (04/27/25 17:06) Complete Blood Count (04/27/25 17:06) Chest Portable (04/27/25 17:06) Urinalysis (04/27/25 17:06) Basic Metabolic Panel (04/27/25 17:06) Troponin-I Hs (04/27/25 18:06) Troponin-I Hs (04/27/25 20:06) Vital Signs Date Time Temp Pulse Resp B/P (MAP) Pulse Ox O2 Delivery O2 Flow Rate FiO2 04/27/25 16:43 101 04/27/25 16:27 101 04/27/25 16:17 98.0 101 16 116/83 98 98.0 Departure 1 Departure Time of Disposition: 17:08 Impression: Primary Impression: Chest pain of unknown etiology Additional Impression: Asthma exacerbation Qualified Codes: J45.901 - Unspecified asthma with (acute) exacerbation Disposition: ADMITTED INPATIENT Admit to: Med Surg Condition: Guarded Critical Care Note Critical Care Time?: No Stability Stability form required: No Heart Score Heart Score: Heart Score Response (Comments) Value History Slightly Suspicious 0 EKG Normal 0 Age 45-64 1 Risk Factors >3 or Hx ASHD 2 Troponin Normal limit 0 Total 3 I personally scribed for MAGGIE PARSON MD ([email or web address]) on 04/27/25 at 16:43. Electronically submitted by Beatris Reyes ([facility]). MAGGIE PARSON MD Apr 27, 2025 16:43
[2025-04-27] MEDS: ALBUTEROL SULF 2.5 MG/0.5ML(0.5%) NEB SOLN NEB ONE (17:37)
[2025-04-27 17:45] LABS: Hematocrit 40.8 % (41.0-53.0); Hemoglobin 13.6 g/dL (13.5-17.5); Mean Corpuscular Hemoglobin 29.9 pg (28.0-32.0); Mean Corpuscular Volume 90.0 fL (80.0-100.0); Nucleated Red Blood Cells % 0.1 %
[2025-04-27 17:55] LABS: Potassium 4.7 mmol/L (3.5-5.1); Sodium 140 mmol/L (136-145)
[2025-04-27 17:56] LABS: Anion Gap 10 (5-15); Calcium 8.8 mg/dL (8.7-10.4); Carbon Dioxide 23 mmol/L (20-31)
[2025-04-27 18:01] LABS: BUN/Creatinine Ratio 30.4 (10.0-20.0)
--- NOTE | 2025-04-27 18:01 | DVH ---
EXAM: XY CHEST PORTABLE CLINICAL HISTORY: sob TECHNIQUE: Single AP view of the chest WID: COMPARISON: XY CHEST XRAY 1 VIEW on DOS: 04/17/25 FINDINGS: Lines and tubes: None Chest: Cardiomegaly and pulmonary vascular congestion. Small right pleural effusion. No pneumothorax or consolidative pneumonia. The osseous structures are grossly intact. IMPRESSION: 1. Mild cardiomegaly, pulmonary vascular congestion, and small right pleural effusion.
[2025-04-27 18:06] LABS: Blood Urea Nitrogen 28 mg/dL (9-23); Chloride 107 mmol/L (98-107); Glucose 142 mg/dL (74-106)
[2025-04-27 23:34] LABS: Urine Protein, UAD Negative (Negative)
[2025-04-28] VITALS (11 sets, daily range): BP systolic 100–136; BP diastolic 54–85; PULSE 84–106; RESP 17–21; TEMP 97.9–98.2; O2SAT 94–100
[2025-04-28] MEDS ORDERED: NITROGLYCERIN 0.4 MG SL TAB SL PRN (00:45)
[2025-04-28] MEDS ORDERED: IPRATROPIUM BROM 0.5 MG/2.5ML INH SOL NEB PRN (00:45)
[2025-04-28] MEDS ORDERED: ALBUTEROL SULF 2.5 MG/0.5ML(0.5%) NEB SOLN NEB PRN (00:45)
[2025-04-28] MEDS ORDERED: MORPHINE SULFATE INJ 2 MG/ml SYRG IV PRN (00:45)
--- NOTE | 2025-04-28 00:57 | DVHHPRES ---
History of Present Illness Resident Creating Document: ADARSH XIE RESIDENT History of Present Illness This is a 54-year-old male with past medical history Asthma, CHF with reduced EF 15-20%, diabetes, HLD, UT, dm 2, appendectomy, current , smoker, meth use, alcohol use, and left knee surgery who presents to the ED with shortness of breath that began 2days ago but aggravated day before yesterday around 4:00 p.m. associated with bilateral lower extremity edema for 2 week,lower extremity pain 6/10 pressure-like and constant. Patient also stated having episode of chest pain 1 day back which 6/10 intensity but currently denies any chest pain. Patient exertional shortness of breaths and unable to walk more than 15 ft for last few weeks. He had also cough with phlegm but no hemoptysis. Noncompliance with medication. Patient reports that he drinks alcohol occasionally, smokes cigarettes less than half a pack, and uses meth daily. Cardiovascular: As above Past Surgical History: Appendectomy, Other (Left knee surgery) Family History: Other (Mom with unknown cancer. Dad with UT. ) Smoke: <1 pack per day, ETOH occasionally, methamphetamine use Lives: with Family Allergy: COVID vaccine PCP: New PCP, unable to recall name Home medication: Albuterol, aspirin 81 mg, atorvastatin 40, carvedilol 3.125 mg, empagliflozin 10 mg, enalapril 5 mg, nicotine 14 mcg per 24 hour, spironolactone 25 mg, furosemide 20, metformin, valacyclovir. Review of Systems Constitutional: Yes: Malaise; No: Fever, Chills, Sweats, Weakness, Other Eyes: No: Pain, Vision change, Conjunctivae inflammation, Eyelid inflammation, Other, Redness ENT: No: Ear pain, Ear discharge, Nose pain, Nose discharge, Nose congestion, Mouth pain, Mouth swelling, Throat pain, Throat swelling, Other Respiratory: Shortness of breath, SOB with excertion, Wheezing; No: Cough, Dry, Hemoptysis, Pleuritic Pain, Sputum, Wheezing, Other Cardiovascular: Palpitations, Orthopnea, Paroxysmal Noc. Dyspnea, Edema; No: Chest Pain, Lt Headedness, Other Gastrointestinal: No: Nausea, Vomiting, Abdominal Pain, Diarrhea, Constipation, Melena, Hematochezia, Other Genitourinary: No Dysuria, No Frequency, No Incontinence, No Hematuria, No Retention, No Other Musculoskeletal: No: other, neck pain, shoulder pain, arm pain, back pain, hand pain, leg pain, foot pain Skin: No: Rash, Lesions, Jaundice, Bruising, Other Neurological: No: Weakness, Numbness, Incoordination, Change in speech, Confusion, Seizures, Other Allergies: Coded Allergies: No Known Drug Allergy (Verified Allergy, Unknown, 09/01/22) Uncoded Allergies: COVID VACCINE (Allergy, Unknown, 06/13/22) Medications Current Medications Medications Dose Ordered Sig/Monalisa Route Start Time Stop Time Status Last Admin Dose Admin Enoxaparin Sodium 40 mg DAILY SC 04/28/25 10:00 UNV Nitroglycerin 0.4 mg Q5MINP PRN SL 04/28/25 00:45 UNV Morphine Sulfate 2 mg Q30M PRN IV 04/28/25 00:45 UNV Furosemide 40 mg BIDD IV 04/28/25 06:00 UNV Albuterol 2.5 mg Q4HPRN PRN NEB 04/28/25 00:45 UNV Ipratropium [place] 0.5 mg Q6HPRN PRN NEB 04/28/25 00:45 UNV Aspirin 81 mg DAILY PO 04/28/25 10:00 UNV Atorvastatin Calcium 40 mg HS PO 04/28/25 22:00 UNV Carvedilol 3.125 mg Q12HR PO 04/28/25 10:00 UNV Empaglifozin 10 mg DAILY PO 04/28/25 10:00 UNV Enalapril Maleate 5 mg Q12HR PO 04/28/25 10:00 UNV Insulin Human Lispro AC SC 04/28/25 07:00 UNV Exam Vital Signs Vital Signs Date Time Temp Pulse Resp B/P (MAP) Pulse Ox O2 Delivery O2 Flow Rate FiO2 04/27/25 21:48 98.2 94 20 113/69 (84) 98 98.2 04/27/25 17:37 Room Air* 0 21 General Appearance: Alert, Oriented X3, moderate distress HEENT: Atraumatic, PERRLA Respiratory: Clear to auscultation, Normal air movement, Other (Bilateral mild crackles and ambulate sound reduced right lower lung) Cardiovascular: Regular rate, Normal S1, Normal S2, No murmurs Abdominal: Normal bowel sounds, Soft, No tenderness, No hepatospenomegaly Extremities: No clubbing, No cyanosis, Normal pulses, No tenderness/swelling, Other (2+ edema bilateral lower extremity) Neuro: Normal gait, Normal speech, Normal tone, Sensation intact Psych/Mental Status: Mental status NL Labs/Xrays Labs Test 04/27/25 22:46 04/27/25 20:38 04/27/25 17:24 Range/Units Urine Color Light-yellow Yellow Urine Clarity Clear Clear Urine pH 5.0 5.0-9.0 Urine Specific [place] 1.035 1.001-1.035 Urine Protein Negative Negative Urine Ketones Negative Negative Urine Blood Negative Negative /uL Urine Nitrite Negative Negative Urine Bilirubin Negative Negative Urine Urobilinogen Normal Negative mg/dL Urine Leukocyte Esterase Negative Negative /uL Urine RBC None seen 0 - 3 /hpf Urine Microscopic WBC < 1 0-3 /HPF Urine Squamous Epithelial Cells None seen <5 /hpf Urine Bacteria None seen None Seen /hpf Urine Glucose 4+ H Normal mg/dL Troponin I High Sensitivity 26 </=54 ng/L White Blood Count 8.0 4.4-10.8 10^3/uL Red Blood Count 4.53 4.5-5.90 10^6/uL Hemoglobin 13.6 13.5-17.5 g/dL Hematocrit 40.8 L 41.0-53.0 % Mean Corpuscular Volume 90.0 80.0-100.0 fL Mean Corpuscular Hemoglobin 29.9 28.0-32.0 pg Mean Corpuscular Hemoglobin Concent 33.2 32.0-36.0 g/dL Red Cell Distribution Width 14.5 H 11.8-14.3 % Platelet Count 225 140-450 10^3/uL Mean Platelet Volume 8.8 6.9-10.8 fL Neutrophils (%) (Auto) 84.1 H 37.0-80.0 % Lymphocytes (%) (Auto) 11.1 10.0-50.0 % Monocytes (%) (Auto) 4.3 0.0-12.0 % Eosinophils (%) (Auto) 0.1 0.0-7.0 % Basophils (%) (Auto) 0.4 0.0-2.0 % Neutrophils # (Auto) 6.8 1.6-8.6 10 ^3/uL Lymphocytes # (Auto) 0.9 0.4-5.4 10 ^3/uL Monocytes # (Auto) 0.3 0-1.3 10 ^3/uL Eosinophils # (Auto) 0 0-0.8 10 ^3/uL Basophils # (Auto) 0 0-0.2 10 ^3/uL Nucleated Red Blood Cells 0.1 % Sodium Level 140 136-145 mmol/L Potassium Level 4.7 3.5-5.1 mmol/L Chloride Level 107 98-107 mmol/L Carbon Dioxide Level 23 20-31 mmol/L Anion Gap 10 5-15 Blood Urea Nitrogen 28 H 9-23 mg/dL Creatinine 0.92 0.700-1.30 mg/dL Glomerular Filtration Rate Calc 98 >90 mL/min BUN/Creatinine Ratio 30.4 H 10.0-20.0 Serum Glucose 142 H 74-106 mg/dL Calcium Level 8.8 8.7-10.4 mg/dL SEPSIS Sepsis Screen Date sepsis recognized/suspect: Apr 27, 2025 Time Sepsis recognized/suspect: 1621 Recent Procedure: No On Antibiotic Therapy: No Respiratory Rate >20: No Heart Rate >90: Yes Temp<36 C (96.8 F) or >38.3 C: No SBP <90 or MAP <65 mmHG: No New Acute Mental Status Change: No Is the patient on CPAP, BIPAP,: No Physician Orders Chest Portable (04/27/25 17:06) Admit (04/28/25 00:33) Code Status (04/28/25 00:33) Enoxaparin Sodium (Lovenox) (04/28/25 10:00) Cardiac Diet-2gna,Lofat,Lochol (04/28/25 Breakfast) Nitroglycerin Sublingual (Ntrostat Subli (04/28/25 00:45) Morphine Sulfate Injection (04/28/25 00:45) Oxygen By Nasal Cannula (04/28/25 00:33) Stat Ekg For Chest Pain (04/28/25 00:33) Notify Of Changes From Base (04/28/25 00:33) Photographic Reproduction Technician For 24 Hours (04/28/25 00:33) Emergency Dysrhythmia Protocol (04/28/25 00:33) Rhythm Strips Once Every Shift (04/28/25 00:33) Furosemide Injection (Lasix Injection) (04/28/25 06:00) Albuterol Medneb (Ventolin Medneb) (04/28/25 00:45) Ipratropium Medneb (Atrovent Medneb) (04/28/25 00:45) Aspirin Enteric Coated Tablet (Ecotrin E (04/28/25 10:00) Atorvastatin (Lipitor) (04/28/25 22:00) Carvedilol Tablet (Coreg Tablet) (04/28/25 10:00) Empagliflozin (Jardiance) (04/28/25 10:00) Enalapril Tablet (Vasotec Tablet) (04/28/25 10:00) Insulin Lispro (Human) (Humalog) (04/28/25 07:00) Vital Signs Date Time Temp Pulse Resp B/P (MAP) Pulse Ox O2 Delivery O2 Flow Rate FiO2 04/27/25 21:48 98.2 94 20 113/69 (84) 98 98.2 04/27/25 19:15 98.5 89 19 116/84 (95) 94 98.5 04/27/25 17:37 97 Room Air* 0 21 Laboratory Tests Test 04/27/25 17:24 White Blood Count 8.0 10^3/uL (4.4-10.8) Medications Medications Dose Ordered Sig/Monalisa Route Start Time Stop Time Status Last Admin Dose Admin Albuterol 5 mg ONCE ONCE NEB 04/27/25 17:15 04/27/25 17:16 DC 04/27/25 17:37 5 MG Aspirin 325 mg ONCE ONCE PO 04/27/25 17:15 04/27/25 17:16 DC 04/27/25 17:15 325 MG Assessment/Plan Assessment/Plan Acute hypoxic respiratory failure due to CHF exacerbation Acute systolic heart failure heart failure, NYHA Class IV 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 Troponin 20> 25> 26 CXR: Mild cardiomegaly, pulmonary vascular congestion, and small right pleural effusion Echo on 04/2025: LVEF 15-20%, global hypokinesia, right ventricular function severely reduced, right and left atrium moderately dilated with moderate tricuspid regurgitation. Started GDMT Furosemide, carvedilol, Jardiance, spironolactone Aspirin 81 mg Atorvastatin 40 mg Enalapril 5 mg Breathing treatment with albuterol and ipratropium BNP Lasix seismographer vitals Hyperlipidemia Type 2 diabetes mellitus Hemoglobin A1c 7.2 on 04/06/2025 Insulin sliding scale Monitor blood sugar Atorvastatin Lifestyle modification Asthma with exacerbation Breathing treatment q.4 PRN Oxygen via nasal cannula, deescalate Monitor oxygen saturation Polysubstance abuse/current smoker Counseling done>13 minute spent Noncompliance with medication Discussed side effects of noncompliance with medical management. Patient verbally understands vertebral discussed. Diet: Cardiac DVT prophylaxis: Lovenox GI prophylaxis: Pantoprazole Goals of care discussions. More than 29 minute spent with patient. Full code status. Case discussed with Dr. Hoskins. Plan discussed with: Patient, Spouse (Itzel), Other (Nurse) My Orders Orders - ADARSH XIE RESIDENT Procedure Category Date Status Time Admit ADMIT 04/28/25 Transmitted 00:33 Code Status CODE 04/28/25 Transmitted 00:33 Enoxaparin Sodium PHA 04/28/25 Logged (Lovenox) 10:00 Cardiac DIET 04/28/25 Transmitted Diet-2gna,Lofat,Lochol Breakfast Nitroglycerin PHA 04/28/25 Logged Sublingual (Ntrostat 00:45 Morphine Sulfate PHA 04/28/25 Logged Injection 00:45 Oxygen By Nasal RT 04/28/25 Transmitted Cannula 00:33 Stat Ekg For Chest [facility] 04/28/25 In Process Pain 00:33 Notify Md Of Changes [facility] 04/28/25 In Process From Base 00:33 Photographic Reproduction Technician For [facility] 04/28/25 In Process 24 Hours 00:33 Emergency Dysrhythmia [facility] 04/28/25 In Process Protocol 00:33 Rhythm Strips Once [facility] 04/28/25 In Process Every Shift 00:33 Furosemide Injection PHA 04/28/25 Logged (Lasix Injection) 06:00 Albuterol Medneb PHA 04/28/25 Logged (Ventolin Medneb) 00:45 Ipratropium Medneb PHA 04/28/25 Logged (Atrovent Medneb) 00:45 Aspirin Enteric PHA 04/28/25 Logged Coated Tablet 10:00 Atorvastatin (Lipitor) PHA 04/28/25 Logged 22:00 Carvedilol Tablet PHA 04/28/25 Logged (Coreg Tablet) 10:00 Empagliflozin PHA 04/28/25 Logged (Jardiance) 10:00 Enalapril Tablet PHA 04/28/25 Logged (Vasotec Tablet) 10:00 Insulin Lispro PHA 04/28/25 Logged (Human) (Humalog) 07:00 Date of Service: Apr 28, 2025 Billing Provider: DENISSE HOSKINS MD Common Visit Codes: 61053-DTHOMIZ INP/OBS CARE (HIGH) Secondary Visit Codes: [id number] CARE PLAN 30 MINUTES AADRSH XIE RESIDENT Apr 28, 2025 00:57
[2025-04-28] MEDS: ALPRAZolam 0.5 MG TAB PO ONE (04:42)
[2025-04-28] MEDS: FUROSEMIDE 40 MG/4 ML VIAL IV SCH (06:21)
[2025-04-28] MEDS: INSULIN LISPRO (HUMAN) 100 UNITS/ML ML SC SCH (06:41)
[2025-04-28 07:14] LABS: Hematocrit 44.4 % (41.0-53.0); Hemoglobin 14.6 g/dL (13.5-17.5); Mean Corpuscular Hemoglobin 29.9 pg (28.0-32.0); Mean Corpuscular Volume 90.9 fL (80.0-100.0); Nucleated Red Blood Cells % 0.0 %
[2025-04-28 07:27] LABS: Alanine Aminotransferase 30 U/L (7-40); Anion Gap 10 (5-15); BUN/Creatinine Ratio 25.8 (10.0-20.0); Calcium 9.0 mg/dL (8.7-10.4); Carbon Dioxide 25 mmol/L (20-31); Chloride 106 mmol/L (98-107); Potassium 4.4 mmol/L (3.5-5.1); Sodium 141 mmol/L (136-145); Total Protein 5.9 g/dL (5.7-8.2)
[2025-04-28 07:28] LABS: Albumin 3.7 g/dL (3.2-4.8)
[2025-04-28 07:29] LABS: Bilirubin, Total 0.8 mg/dL (0.2-1.0)
[2025-04-28 07:36] LABS: Alkaline Phosphatase 132 U/L (46-116); Blood Urea Nitrogen 25 mg/dL (9-23); Glucose 133 mg/dL (74-106)
[2025-04-28] MEDS: ENOXAPARIN SOD 40 MG/0.4 ML SYRINGE SC SCH (09:28)
[2025-04-28] MEDS: SPIRONOLACTONE 25 MG TAB PO SCH (09:29)
[2025-04-28] MEDS: ASPirin-EC 81 mg tab PO SCH (09:29)
[2025-04-28] MEDS: EMPAGLIFLOZIN 10 MG TAB PO SCH (09:29)
[2025-04-28] MEDS: ENALAPRIL MALEATE 2.5 MG TAB PO SCH (09:30)
[2025-04-28] MEDS: CARVEDILOL 3.125 MG TAB PO SCH (09:30)
[2025-04-28 10:33] LABS: Cannabinoid Screen, Urine Neg (NEGATIVE)
[2025-04-28 10:35] LABS: Amphetamine Screen, Urine Pos (NEGATIVE); Barbiturate Scree,Urine Neg (NEGATIVE); Benzodiazephine Screen, Urine Neg (NEGATIVE); Cocaine Screen, Urine Neg (NEGATIVE); Opiate Scree,Urine Neg (NEGATIVE); Phencyclidine Screen, Urine Neg (NEGATIVE)
--- NOTE | 2025-04-28 11:58 | DVHPNRES ---
Progress Note Date Seen: Apr 28, 2025 Resident Creating Document: KELBY ANN Medical Necessity Reason Pt with a Central, PICC or Fol: No Subjective Review of Systems Patient is a 54-year-old male with past medical history of Asthma, CHF with reduced EF 15-20%, HLD, [place], T2DM, presented to [facility] ED with complaint of shortness of breath that began two days ago and worsened the day before yesterday around 4:00 p.m. He reports associated bilateral lower extremity edema for two weeks and constant, pressure-like lower extremity pain rated 6/10. The patient also experienced an episode of chest pain one day ago with an non-radiating and midsternal intensity of 6/10, but currently denies chest pain. He endorses exertional shortness of breath and states he has been unable to walk more than 15 feet for the past few weeks. He also reports cough with phlegm but denies hemoptysis. He reports occasional alcohol use, smoking less than half a pack of cigarettes daily, and daily methamphetamine use. He endorses a three-day history of pain following an unprovoked, atraumatic onset, with associated dizziness and left leg swelling. He denies nausea, vomiting, or additional acute symptoms. Past Surgical History: Appendectomy, Left knee replacement Family History: Other (Mom with unknown cancer. Dad with [place]. Smoke: <1 pack per day, ETOH occasionally, methamphetamine use Lives: with Family Allergy: COVID vaccine PCP: New PCP, unable to recall name Home medication: Albuterol, aspirin 81 mg, atorvastatin 40, carvedilol 3.125 mg, empagliflozin 10 mg, enalapril 5 mg, nicotine 14 mcg per 24 hour, spironolactone 25 mg, furosemide 20, metformin, valacyclovir. Patient seen and examined at bedside. Patient is alert and oriented to time, place person and responding to all questions. Eyes: No Pain, No Vision change, No Conjunctivae inflammation, No Eyelid inflammation, No Other, No Redness ENT: No Ear pain, No Ear discharge, No Nose pain, No Nose discharge, No Nose congestion, No Mouth pain, No Mouth swelling, No Throat pain, No Throat swelling, No Other Cardiovascular: No Chest Pain, Palpitations, Orthopnea, Paroxysmal No Dyspnea, No Edema, No Lt Headedness, No Other Respiratory: No Cough, No Dry, Shortness of breath, SOB with exertion, W heezing, No Hemoptysis, No Pleuritic Pain, No Sputum, No Other Gastrointestinal: No Nausea, No Vomiting, No Abdominal Pain, No Diarrhea, No Constipation, No Melena, No Hematochezia, No Other Genitourinary: No Dysuria, No Frequency, No Incontinence, No Hematuria, No Retention, No Other Musculoskeletal: No other, No neck pain, No shoulder pain, No arm pain, No back pain, No hand pain, No leg pain, No foot pain Skin: No Rash, No Lesions, No Jaundice, No Bruising, No Other Objective vital signs Vital Sign Date Time Temp Pulse Resp B/P (MAP) Pulse Ox O2 Delivery O2 Flow Rate FiO2 04/28/25 10:00 94 Room Air* 0 21 04/28/25 09:30 129/85 04/28/25 09:30 84 04/28/25 09:00 98.0 20 98.0 Total Intake and Output 04/27/25 04/27/25 04/28/25 15:00 23:00 07:00 Intake Total 200 ml Balance 200 ml medications Current Medications Medications Dose Ordered Sig/Monalisa Route Start Time Stop Time Status Last Admin Dose Admin Enoxaparin Sodium 40 mg DAILY SC 04/28/25 10:00 04/28/25 09:28 40 MG Nitroglycerin 0.4 mg Q5MINP PRN SL 04/28/25 00:45 Morphine Sulfate 2 mg Q30M PRN IV 04/28/25 00:45 Furosemide 40 mg BIDD IV 04/28/25 06:00 04/28/25 06:21 40 MG Albuterol 2.5 mg Q4HPRN PRN NEB 04/28/25 00:45 Ipratropium [place] 0.5 mg Q6HPRN PRN NEB 04/28/25 00:45 Aspirin 81 mg DAILY PO 04/28/25 10:00 04/28/25 09:29 81 MG Atorvastatin Calcium 40 mg HS PO 04/28/25 22:00 Carvedilol 3.125 mg Q12HR PO 04/28/25 10:00 04/28/25 09:30 3.125 MG Empaglifozin 10 mg DAILY PO 04/28/25 10:00 04/28/25 09:29 10 MG Enalapril Maleate 5 mg Q12HR PO 04/28/25 10:00 04/28/25 09:30 5 MG Insulin Human Lispro AC SC 04/28/25 07:00 Spironolactone 25 mg DAILY PO 04/28/25 10:00 04/28/25 09:29 25 MG Examination General Appearance: Cooperative. Well developed. Well nourished. NAD Head Exam: Normal inspection Neck Exam: Normal inspection. Non-tender. Normal alignment Pulmonary/Respiratory: Chest non-tender. Clear bilateral breath sounds, no wheezing. Bilateral mild crackles and ambulate sound reduced right lower lung Cardiovascular/Chest: Regular rate and rhythm. No murmurs. No JVD. Peripheral Pulses: 2+ Radial (R). 2+ Radial (L). 2+ Pedal (R). 2+ Pedal (L) Abdominal Exam: Normal bowel sounds. Soft. normal abdomen, no visible veins, Nontender. No hepatospenomegaly. No masses Ankle Exam: Negative ankle edema Lower extremities: 2+ edema bilateral lower extremity Neuro/Mental Status: A&O x4. Coherent. Thoughts/Psych: Normal thought pattern. Appropriate mood and affect. Good judgement and insight Skin Exam: Normal inspection. Normal color. Warm. 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 Right ventricle function severely reduced. Left and right atium moderately dilated. Moderate tricuspid regurgitation, mild pulmonary hypertension Albuterol 2.5 MG NEB q4h Ipratropium Medneb 0.5 MG NEB q6h Aspirin 40 MG PO hs Coreg 3.125 MG PO q12h Jardiance 10 MG PO daily Aldanctone 25 MG PO daily Lovenox 40 MG SC daily Lasix 40 MG IV bid pain management with Morphine MRSA Screen NEGATIVE Mixed dyslipidemia Lipitor 40 MG PO hs Type 2 diabetes mellitus with hyperglycemia, uncontrolled Insulin lispro SC ac Obesity, BMI 33.6 kg/m2 I have counseled the patient on healthy lifestyle modifications Methamphetamine use disorder UDS positive urine amphetamine I have counseled the patient on the importance of complete methamphetamine cessation for over 50 minutes. Medication noncompliance I have counseled the patient on the importance of medication compliance for over 5 minutes. Diet: Cardiac Goals of care: Full code, discussed for >30 minutes on 04/28/25 Plan discussed with patient Plan discussed with Dr. Shi Plan discussed with: Patient My Orders My Orders Orders - KELBY ANN Procedure Category Date Status Time Complete Blood Count LAB 04/29/25 Verified 04:00 Comprehensive LAB 04/29/25 Verified Metabolic Panel 04:00 Date of Service: Apr 28, 2025 Billing Provider: ADRIANA SHI MD Common Visit Codes: [id number] INP/OBS CARE(HIGH) KELBY ANN Apr 28, 2025 11:58 ADRIANA SHI MD May 02, 2025 20:25
[2025-04-28] MEDS: ATORVASTATIN 20 MG TAB PO SCH (21:11)
[2025-04-29] VITALS (9 sets, daily range): BP systolic 102–132; BP diastolic 69–81; PULSE 79–103; RESP 16–18; TEMP 97.7–98.6; O2SAT 97–98
[2025-04-29] MEDS ORDERED: ALPRAZolam 0.5 MG TAB PO ONE (00:15)
[2025-04-29 06:16] LABS: Hematocrit 44.5 % (41.0-53.0); Hemoglobin 14.8 g/dL (13.5-17.5); Mean Corpuscular Hemoglobin 29.7 pg (28.0-32.0); Mean Corpuscular Volume 89.3 fL (80.0-100.0); Nucleated Red Blood Cells % 0.1 %
[2025-04-29 06:44] LABS: Alanine Aminotransferase 24 U/L (7-40); Anion Gap 10 (5-15); BUN/Creatinine Ratio 22.6 (10.0-20.0); Carbon Dioxide 27 mmol/L (20-31); Chloride 105 mmol/L (98-107); Potassium 3.5 mmol/L (3.5-5.1); Sodium 142 mmol/L (136-145); Total Protein 5.8 g/dL (5.7-8.2)
[2025-04-29 06:45] LABS: Albumin 3.6 g/dL (3.2-4.8)
[2025-04-29 06:46] LABS: Bilirubin, Total 0.9 mg/dL (0.2-1.0)
[2025-04-29 06:47] LABS: Blood Urea Nitrogen 24 mg/dL (9-23); Calcium 8.7 mg/dL (8.7-10.4)
[2025-04-29 06:55] LABS: Glucose 128 mg/dL (74-106)
[2025-04-29 07:39] LABS: Alkaline Phosphatase 134 U/L (46-116)
--- NOTE | 2025-04-29 12:48 | DVHPNRES ---
Progress Note Date Seen: Apr 29, 2025 Resident Creating Document: JOSE CARLOS MELO Medical Necessity Reason Pt with a Central, PICC or Fol: No Subjective Review of Systems Patient was seen today at bedside, leukocytosis resolving No acute distress Put patient in room air, breathing well maintaining oxygen saturation above 94 We will continue IV Lasix Possible discharge tomorrow Objective vital signs Vital Sign Date Time Temp Pulse Resp B/P (MAP) Pulse Ox O2 Delivery O2 Flow Rate FiO2 04/29/25 10:00 98 Room Air* 0 21 04/29/25 10:00 98/60 04/29/25 10:00 80 04/29/25 09:05 97.7 16 97.7 Total Intake and Output 04/28/25 04/28/25 04/29/25 15:00 23:00 07:00 Intake Total 1870 ml 500 ml Balance 1870 ml 500 ml medications Current Medications Medications Dose Ordered Sig/Monalisa Route Start Time Stop Time Status Last Admin Dose Admin Enoxaparin Sodium 40 mg DAILY SC 04/28/25 10:00 04/29/25 10:14 40 MG Nitroglycerin 0.4 mg Q5MINP PRN SL 04/28/25 00:45 Morphine Sulfate 2 mg Q30M PRN IV 04/28/25 00:45 Furosemide 40 mg BIDD IV 04/28/25 06:00 04/29/25 05:11 40 MG Albuterol 2.5 mg Q4HPRN PRN NEB 04/28/25 00:45 Cancel Ipratropium [place] 0.5 mg Q6HPRN PRN NEB 04/28/25 00:45 Cancel Aspirin 81 mg DAILY PO 04/28/25 10:00 04/29/25 10:15 81 MG Atorvastatin Calcium 40 mg HS PO 04/28/25 22:00 04/28/25 21:11 40 MG Carvedilol 3.125 mg Q12HR PO 04/28/25 10:00 04/28/25 09:30 3.125 MG Empaglifozin 10 mg DAILY PO 04/28/25 10:00 04/29/25 10:14 10 MG Enalapril Maleate 5 mg Q12HR PO 04/28/25 10:00 04/28/25 21:12 5 MG Insulin Human Lispro AC SC 04/28/25 07:00 04/29/25 11:15 1 UNITS Spironolactone 25 mg DAILY PO 04/28/25 10:00 04/29/25 10:14 25 MG Examination General examination- no acute distress HEENT- PEERLA, no acute nasal discharge Cardiovascular- S1-S2 audible, rate and rhythm regular, no murmur Respiratory- CTAB, no wheeze or rhonchi Gastrointestinal-nontender, bowel sound+. Nondistended Musculoskeletal-no acute joint swelling or tenderness or redness Lower extremity- ++ bilateral leg edema Neurological- cranial nerves intact, no acute dysarthria or dysphagia Psychiatry- denies depression or SI or HI Skin- no acute rash or purpura laboratory and microbiology Laboratory Tests 04/29/25 05:56 Test 04/29/25 05:56 Range/Units Serum Glucose 128 H 74-106 mg/dL Microbiology Date/Time Source Procedure Growth Status 04/28/25 04:20 Nose MRSA Screen - Final Complete Problem List/Assessment/Plan Problem List/Assessment/Plan Assessment and plan Acute hypoxic respiratory failure due to CHF exacerbation Acute systolic heart failure, NYHA Class IV Hypertensive heart disease 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 Right ventricle function severely reduced. Left and right atium moderately dilated. Moderate tricuspid regurgitation, mild pulmonary hypertension Albuterol 2.5 MG NEB q4h Ipratropium Medneb 0.5 MG NEB q6h Aspirin 40 MG PO hs Coreg 3.125 MG PO q12h Jardiance 10 MG PO daily Aldanctone 25 MG PO daily Lovenox 40 MG SC daily Lasix 40 MG IV bid pain management with Morphine MRSA Screen NEGATIVE Mixed dyslipidemia Lipitor 40 MG PO hs Type 2 diabetes mellitus with hyperglycemia, uncontrolled Insulin lispro SC ac Obesity, BMI 33.6 kg/m2 I have counseled the patient on healthy lifestyle modifications Methamphetamine use disorder UDS positive urine amphetamine I have counseled the patient on the importance of complete methamphetamine cessation for over 50 minutes. Medication noncompliance I have counseled the patient on the importance of medication compliance for over 5 minutes. Diet: Cardiac Goals of care: Full code, discussed for >30 minutes on 04/28/25 Plan discussed with patient Plan discussed with Dr. Shi Plan discussed with: Patient Plan discussed with: Patient, Other (RN) My Orders My Orders Orders - JOSE CARLOS MELO Procedure Category Date Status Time Vitamin B12 LAB 04/29/25 In Process 08:50 Vitamin D, 25-Hydroxy LAB 04/29/25 In Process 08:50 Folate (Folic Acid) LAB 04/30/25 Verified 04:00 Date of Service: Apr 29, 2025 Billing Provider: ADRIANA SHI MD Common Visit Codes: [id number] INP/OBS CARE(HIGH) JOSE CARLOS MELO RESIDENT Apr 29, 2025 12:48
[2025-04-30 01:00] VITALS: BP 110/70; PULSE 86; RESP 18; TEMP 98.1; O2SAT 97
[2025-04-30 05:00] VITALS: BP 106/69; PULSE 86; RESP 16; TEMP 97.4; O2SAT 90
[2025-04-30 06:10] LABS: Hematocrit 44.6 % (41.0-53.0); Hemoglobin 14.4 g/dL (13.5-17.5); Mean Corpuscular Hemoglobin 28.8 pg (28.0-32.0); Mean Corpuscular Volume 89.5 fL (80.0-100.0); Nucleated Red Blood Cells % 0.1 %
[2025-04-30 06:38] LABS: Chloride 103 mmol/L (98-107); Potassium 3.8 mmol/L (3.5-5.1); Sodium 143 mmol/L (136-145)
[2025-04-30 06:39] LABS: Anion Gap 10 (5-15); Carbon Dioxide 30 mmol/L (20-31)
[2025-04-30 06:40] LABS: Calcium 8.7 mg/dL (8.7-10.4)
[2025-04-30 06:45] LABS: BUN/Creatinine Ratio 23.2 (10.0-20.0); Blood Urea Nitrogen 23 mg/dL (9-23); Glucose 120 mg/dL (74-106); Magnesium 2.1 mg/dL (1.6-2.6)
[2025-04-30 08:00] VITALS: PULSE 96; RESP 18; O2SAT 98
[2025-04-30 09:00] VITALS: BP 111/76; PULSE 89; RESP 18; TEMP 98.9; O2SAT 98
[2025-04-30 10:00] VITALS: O2SAT 98
--- NOTE | 2025-04-30 14:15 | DVHDSRES ---
Discharge Summary Date of Admission Resident Creating Document: KELBY ANN RESIDENT Apr 28, 2025 at 00:33 Date of Discharge: Apr 30, 2025 Admitting Diagnosis Shortness of breath Labs/Diagnostic Data: Laboratory Results Test 04/30/25 11:52 04/30/25 05:26 04/29/25 05:56 04/28/25 05:43 POC Glucose 140 mg/dl (70-106) White Blood Count 10.2 10^3/uL (4.4-10.8) Red Blood Count 4.98 10^6/uL (4.5-5.90) Hemoglobin 14.4 g/dL (13.5-17.5) Hematocrit 44.6 % (41.0-53.0) Mean Corpuscular Volume 89.5 fL (80.0-100.0) Mean Corpuscular Hemoglobin 28.8 pg (28.0-32.0) Mean Corpuscular Hemoglobin Concent 32.2 g/dL (32.0-36.0) Red Cell Distribution Width 14.4 % (11.8-14.3) Platelet Count 253 10^3/uL (140-450) Mean Platelet Volume 8.8 fL (6.9-10.8) Neutrophils (%) (Auto) 70.4 % (37.0-80.0) Lymphocytes (%) (Auto) 21.1 % (10.0-50.0) Monocytes (%) (Auto) 7.1 % (0.0-12.0) Eosinophils (%) (Auto) 1.0 % (0.0-7.0) Basophils (%) (Auto) 0.4 % (0.0-2.0) Neutrophils # (Auto) 7.2 10 ^3/uL (1.6-8.6) Lymphocytes # (Auto) 2.2 10 ^3/uL (0.4-5.4) Monocytes # (Auto) 0.7 10 ^3/uL (0-1.3) Eosinophils # (Auto) 0.1 10 ^3/uL (0-0.8) Basophils # (Auto) 0 10 ^3/uL (0-0.2) Nucleated Red Blood Cells 0.1 % Sodium Level 143 mmol/L (136-145) Potassium Level 3.8 mmol/L (3.5-5.1) Chloride Level 103 mmol/L (98-107) Carbon Dioxide Level 30 mmol/L (20-31) Anion Gap 10 (5-15) Blood Urea Nitrogen 23 mg/dL (9-23) Creatinine 0.99 mg/dL (0.700-1.30) Glomerular Filtration Rate Calc 90 mL/min (>90) BUN/Creatinine Ratio 23.2 (10.0-20.0) Serum Glucose 120 mg/dL (74-106) Calcium Level 8.7 mg/dL (8.7-10.4) Magnesium Level 2.1 mg/dL (1.6-2.6) Total Bilirubin 0.9 mg/dL (0.2-1.0) Aspartate Amino Transferase (AST) 20 U/L (13-40) Alanine Aminotransferase (ALT) 24 U/L (7-40) Alkaline Phosphatase 134 U/L (46-116) Total Protein 5.8 g/dL (5.7-8.2) Albumin 3.6 g/dL (3.2-4.8) Thyroid Stimulating Hormone (TSH) 1.53 uIU/mL (0.55-4.78) B-Type Natriuretic Peptide 1931.14 pg/mL (0-100) Test 04/27/25 22:46 04/27/25 20:38 Urine Color Light-yellow (Yellow) Urine Clarity Clear (Clear) Urine pH 5.0 (5.0-9.0) Urine Specific [place] 1.035 (1.001-1.035) Urine Protein Negative (Negative) Urine Ketones Negative (Negative) Urine Blood Negative /uL (Negative) Urine Nitrite Negative (Negative) Urine Bilirubin Negative (Negative) Urine Urobilinogen Normal mg/dL (Negative) Urine Leukocyte Esterase Negative /uL (Negative) Urine RBC None seen /hpf (0 - 3) Urine Microscopic WBC < 1 /HPF (0-3) Urine Squamous Epithelial Cells None seen /hpf (<5) Urine Bacteria None seen /hpf (None Seen) Urine Glucose 4+ mg/dL (Normal) Urine Opiates Screen Neg (NEGATIVE) Urine Fentanyl Screen Neg (NEGATIVE) Urine Barbiturates Screen Neg (NEGATIVE) Urine Phencyclidine Screen Neg (NEGATIVE) Urine Amphetamines Screen Pos (NEGATIVE) Urine Benzodiazepines Screen Neg (NEGATIVE) Urine Cocaine Screen Neg (NEGATIVE) Urine Cannabinoids Screen Neg (NEGATIVE) Troponin I High Sensitivity 26 ng/L (</=54) Other Laboratory Tests 04/30/25 05:26 Brief Hx & Hospital Course: The patient is a 54-year-old male with a past medical history of asthma, congestive heart failure with reduced ejection fraction of 15 to 20 percent, hyperlipidemia, myocardial infarction, and type 2 diabetes mellitus. He presented to the emergency department with shortness of breath that began two days prior and worsened the day before admission. He reported bilateral lower extremity edema for two weeks and constant pressure-like pain in the lower extremities rated six out of ten. He also experienced an episode of non- radiating midsternal chest pain one day prior, which has since resolved. He endorsed exertional dyspnea and stated he has been unable to walk more than fifteen feet for several weeks. He reported cough with phlegm but denied hemoptysis. He admitted to occasional alcohol use, smoking less than half a pack of cigarettes daily, and daily methamphetamine use. He denied nausea, vomiting, or other acute symptoms. A portable chest X-ray showed mild cardiomegaly, pulmonary vascular congestion, and a small right pleural effusion without pneumothorax or pneumonia. The MRSA nasal screen was negative. Laboratory evaluation revealed uncontrolled hyperglycemia and a positive urine drug screen for amphetamines. The patient was diagnosed with acute hypoxic respiratory failure secondary to congestive heart failure exacerbation, acute systolic heart failure NYHA Class IV, hypertensive heart disease, and likely drug-induced cardiomyopathy with severely reduced ejection fraction. He was treated with intravenous furosemide, carvedilol, spironolactone, empagliflozin, aspirin, and enalapril. He also received nebulized albuterol and ipratropium, insulin for hyperglycemia, and morphine for pain management. He was counseled extensively on methamphetamine cessation and medication compliance. Despite treatment and counseling, the patient left the hospital against medical advice. Examination General Appearance: Cooperative. Well developed. Well nourished. NAD Head Exam: Normal inspection Neck Exam: Normal inspection. Non-tender. Normal alignment Pulmonary/Respiratory: Chest non-tender. Clear bilateral breath sounds, no wheezing. Bilateral mild crackles and ambulate sound reduced right lower lung Cardiovascular/Chest: Regular rate and rhythm. No murmurs. No JVD. Peripheral Pulses: 2+ Radial (R). 2+ Radial (L). 2+ Pedal (R). 2+ Pedal (L) Abdominal Exam: Normal bowel sounds. Soft. normal abdomen, no visible veins, Nontender. No hepatospenomegaly. No masses Ankle Exam: Negative ankle edema Lower extremities: 2+ edema bilateral lower extremity Neuro/Mental Status: A&O x4. Coherent. Thoughts/Psych: Normal thought pattern. Appropriate mood and affect. Good judgement and insight Skin Exam: Normal inspection. Normal color. Warm. Dry Operations or Procedures PATIENT: MICKEY YUAN ACCT: [id number] UNIT: [id number] : 1970 LOC: ER ROOM / BED: / AGE / SEX: 54 / M ADM STATUS: REG ER SERVICE 1706 ORDERING PHYSICIAN: MAGGIE PARSON MD PROCEDURE(s): CXRP - CHEST PORTABLE REASON: sob ORDER NUMBER(s): [id number], ACCESSION NUMBER(s): [id number] EXAM: XY CHEST PORTABLE CLINICAL HISTORY: sob TECHNIQUE: Single AP view of the chest WID: COMPARISON: XY CHEST XRAY 1 VIEW on DOS: 04/17/25 FINDINGS: Lines and tubes: None Chest: Cardiomegaly and pulmonary vascular congestion. Small right pleural effusion. No pneumothorax or consolidative pneumonia. The osseous structures are grossly intact. IMPRESSION: 1. Mild cardiomegaly, pulmonary vascular congestion, and small right pleural effusion. [facility] [id number] [place], [place] [id number] Ruth Torres M.D., Laboratory Coal Cager - PATIENT: MICKEY YUAN ACCT: [id number] LOC: [facility] U: [id number] AGE/SX: 54/M ROOM: [facility] RE04/28/[address]: ADARSH XIE RESIDEN : 1970 BED: B DIS: STATUS: ADM IN TLOC: - SPEC #: [id number] HANK: 04/28/25 STATUS: COMP REQ #: [id number] RECD: 04/28/[address] [facility] DR: ADARSH XIE RESIDENT SOURCE: NOSE ENTR: 04/28/[address]: SPDESC: ORDERED: MRSAS - Procedure Result - MRSA Screen Final RESULT NEGATIVE No MRSA detected. Methodology: DNA Amplification This is an automated qualitative in vitro diagnostic test for the direct detection of methicillin-resistant Staphylococcus aureus (MRSA) DNA from nasal swabs that utilizes real-time polymerase chain reaction (PCR) and flourogenic target-specific hybridization probes for the detection of the amplified DNA. 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 LVEF, <15-20% Mixed dyslipidemia Type 2 diabetes mellitus with hyperglycemia, uncontrolled Obesity, BMI 33.6 kg/m2 Methamphetamine use disorder Medication noncompliance Discharge Disposition: AMA Discharge Instruct/Medications Diet: Cardiac 2g Na,low cholest Activity: No Restrictions, As Tolerated Follow Up/Referral: Follow up with PCP within 1 week Medications: Continue homs medications Scheduled Albuterol Sulfate (Albuterol Sulfate), 1 VIAL NEB Q4HPRN, (Reported) Aspirin (Chewable Aspirin), 1 TAB PO DAILY Atorvastatin Calcium (Atorvastatin Calcium), 1 TAB PO DAILY Carvedilol (Coreg), 3.125 MG PO BID Empagliflozin (Jardiance), 1 TAB PO DAILY Enalapril Maleate (Vasotec), 1 TAB PO DAILY Furosemide (Lasix), 1 TAB PO DAILY Nicotine (Nicotine Transdermal Syst), 14 MG TD DAILY Spironolactone (Spironolactone), 0.5 TAB PO DAILY Scheduled PRN Albuterol Sulfate (Ventolin Mdi), 90 MCG IN Q6HP PRN Albuterol Sulfate (Ventolin Mdi), 90 MCG IN PRN PRN for SHORTNESS OF BREATH Discharge Statement: "Patient was advised to return to the ER or call 911 if any headaches, dizziness, shortness of breath, chest pain, abdominal pain, bleeding, fevers, or worsening of medical condition. Patient was counseled about treatment plan, medications, possible side effects, patientverbalized understanding. All questions were answered to the best of my ability. This discharge took greater then 30 minutes in planning, reviewing documentation, counseling the patient, and discussing with other team members." ASSESSMENT ASSESSMENT Assessment Date of Service: Apr 30, 2025 Billing Provider: ADRIANA PEREZ MD Common Visit Codes: [id number] DISCH DAY >30min KELBY ANN RESIDENT Apr 30, 2025 14:15
--- NOTE | 2025-05-03 12:13 | ECG ---
[facility] Test Date: 2025-04-27 Test Time: 16:27:25 Pat Name: MICKEY YUAN Department: [facility] ED Patient ID: [facility]-[id number] Room: 0249T B Gender: M Nail Feeder: rubén : 1970 Requested By: MAGGIE PARSON Order Number: [id number] Reading MD: Jaxon Monroy Measurements Intervals [place] Rate: 101 P: 65 SD: 140 QRS: 73 QRSD: 89 T: -43 QT: 334 QTc: 433 Interpretive Statements Sinus tachycardia Probable left atrial enlargement Nonspecific T abnormalities, lateral leads Electronically Signed On 05-04-2025 11:12:03 PST by Jaxon Monroy Please click the below link to view image of tracing.
== END 2025-04-30 13:40 | disposition left against medical advice (07) | DRG 133 ==
LOC: ER 16:15 → OVERFLOW 04-28 00:33 → TELE-EAST 04-28 02:11
PROVIDERS: ATTEND Emergency Medicine
DX: J96.01 Acute respiratory failure with hypoxia (principal); I50.23 Acute on chronic systolic (congestive) heart failure; I11.0 Hypertensive heart disease with heart failure; I42.7 Cardiomyopathy due to drug and external agent; E11.65 Type 2 diabetes mellitus with hyperglycemia; E11.9 Type 2 diabetes mellitus without complications; D72.829 Elevated white blood cell count, unspecified; Z79.02 Long term (current) use of antithrombotics/antiplatelets; F19.10 Other psychoactive substance abuse, uncomplicated; E66.9 Obesity, unspecified; I07.1 Rheumatic tricuspid insufficiency; Z91.148 Patient's other noncompliance with medication regimen for other reason; F17.210 Nicotine dependence, cigarettes, uncomplicated; Z71.6 Tobacco abuse counseling; Z71.51 Drug abuse counseling and surveillance of drug abuser; E78.2 Mixed hyperlipidemia; F15.10 Other stimulant abuse, uncomplicated; Z68.33 Body mass index [BMI] 33.0-33.9, adult; I25.2 Old myocardial infarction; Z90.49 Acquired absence of other specified parts of digestive tract; Z82.49 Family history of ischemic heart disease and other diseases of the circulatory system; Z88.7 Allergy status to serum and vaccine; Z79.899 Other long term (current) drug therapy; Z79.82 Long term (current) use of aspirin; Z79.84 Long term (current) use of oral hypoglycemic drugs; Z53.29 Procedure and treatment not carried out because of patient's decision for other reasons; T38.0X5A Adverse effect of glucocorticoids and synthetic analogues, initial encounter
CPT/HCPCS: 36415; 71045; 80048; 80053; 80307; 81001; 82306; 82607; 82746; 82962; 83735; 83880; 84443; 84484; 85025; 87081; 93005; 94640; G0378; J1815